=== PATIENT | female | born 1945 | race Caucasian/White ===

== ENCOUNTER 2020-03-04 09:23 | Outpatient (CLI) | payer MEDICARE, SELFPAY ==
--- NOTE | ~2020-03-04 | MM_ITS ---
EXAMINATION: MM screening [facility] BI w susana HISTORY: Screening mammogram TECHNIQUE: Craniocaudal and mediolateral oblique 3-D tomosynthesis images were obtained and synthetic 2-D images were generated. CAD analysis was submitted and interpreted. COMPARISON: 08/27/2018, 06/26/2017, 04/22/2016 bilateral digital screening mammogram examinations BREAST PARENCHYMAL COMPOSITION: There are scattered areas of fibroglandular density. FINDINGS: Scattered bilateral benign calcifications. Stable bilateral small circumscribed opacities s sirena 04/22/2016. There is no evidence of suspicious mass, calcification, or architectural distortion to suggest malignancy in either breast. There has been no suspicious interval change. IMPRESSION: 1. No mammographic evidence of malignancy. 2. Recommend routine screening mammography in one year. BI-RADS Category 2: Benign finding(s). Reviewed, dictated and finalized at location A.
== END 2020-03-04 09:24 | disposition home or self-care (01) ==
LOC: ANHIMG 09:27
PROVIDERS: PCP Family Medicine; Visit Provider Family Medicine
DX: Z12.31 Encounter for screening mammogram for malignant neoplasm of breast (principal)
CPT/HCPCS: 77063; 77067

== ENCOUNTER → 2020-09-28 08:54 | Outpatient (CLI) | payer MEDICARE, SELFPAY ==
--- NOTE | ~2020-09-28 | XR_ITS ---
XR chest 2V DATE: 09/28/2020 09:08 INDICATION: Cough TECHNIQUE: 2 views COMPARISON: None FINDINGS: Mild cardiomegaly. Mild aortic unfolding. No hilar or mediastinal enlargement. No pulmonary infiltrate or consolidation, pleural effusion or pulmonary vascular congestion or pneumothorax. Diffuse osteopenia. There is degenerative spurring of the thoracic spine. IMPRESSION: Mild cardiomegaly No active pulmonary disease Reviewed, dictated and finalized at location A.
== END ==
PROVIDERS: PCP Family Medicine; Visit Provider Family Medicine
DX: R05 Cough (principal); I51.7 Cardiomegaly; M85.88 Other specified disorders of bone density and structure, other site
CPT/HCPCS: 71046

== ENCOUNTER 2021-09-09 08:56 | Outpatient (CLI) | payer MEDICARE, SELFPAY ==
--- NOTE | ~2021-09-09 | MM_ITS ---
EXAMINATION: MM screening [facility] BI w susana HISTORY: Screening mammogram TECHNIQUE: Craniocaudal and mediolateral oblique 3-D tomosynthesis images were obtained and synthetic 2-D images were generated. CAD analysis was submitted and interpreted. COMPARISON: 03/04/2020, 08/27/2018, 06/26/2017 BREAST PARENCHYMAL COMPOSITION: There are scattered areas of fibroglandular density. FINDINGS: Stable bilateral breast masses are consistent with benign findings. There is no suspicious mass, calcification, or architectural distortion to suggest malignancy in either breast. There has be en no suspicious interval change. IMPRESSION: 1. No mammographic evidence of malignancy. 2. Recommend routine screening mammography in one year. BI-RADS Category 2: Benign finding(s). Reviewed, dictated and finalized at location A.
--- NOTE | ~2021-09-09 | DEXA_ITS ---
Bone Density Report Name: SHERLY AGARWAL Age: 76 Sex: Female Ethnicity: White Date of : 1945 Indication: osteopenia; monitoring treatment; height loss; postmenopausal Referring Provider: Lucero Frederick Study: Bone densitometry was performed. Exam Date: September 09, 2021 Accession number: [id number] Bone Density: Region BMD T-score Z-score Classification AP Spine (L1, L2, L3) 1.122 0.9 3.3 Normal Femoral Neck (Left) 0.619 -2.1 0.0 Osteopenia Total Hip (Left) 0.894 -0.4 1.3 Normal Total Hip Bilateral Avg 0.852 -0.8 1.0 Normal Femoral Neck (Right) 0.599 -2.2 -0.2 Osteopenia Total Hip (Right) 0.809 -1.1 0.7 Osteopenia World Health Organization criteria for BMD impression classify patients as: Normal (T-score at or above -1.0), Osteopenia (T-score between -1.0 and -2.5), or Osteoporosis (T-score at or below -2.5). 10-year Fracture Risk: FRAX not reported because: Treated for osteoporosis Previous Exams: Region Exam Age BMD T-score BMD Change BMD Change Date g/cm2 vs Baseline vs Previous AP Spine(L1, L2, L3) 09/09/2021 76 1.122 0.9 0.033(3.1%)# 0.028(2.6%)# 06/26/2017 72 1.093 0.7 0.005(0.4%)# 0.005(0.4%)# 06/26/2012 67 1.088 0.6 Total Hip(Left) 09/09/2021 76 0.894 -0.4 -0.079(-8.1%)# -0.023(-2.5%)# 06/26/2017 72 0.917 -0.2 -0.056(-5.7%)# -0.056(-5.7%)# 06/26/2012 67 0.972 0.2 Total Hip(Right) 09/09/2021 76 0.809 -1.1 -0.157(-16.2%) -0.002(-0.2%)# 06/26/2017 72 0.811 -1.1 -0.155(-16.0%) -0.155(-16.0%) 06/26/2012 67 0.966 0.2 *Denotes significance at 95% confidence level, LSC for AP Spine = 0.022 g/cm2, LSC for Total Hip = 0.027 g/cm2 Clinical Information Provided by Patient: Is being treated for osteoporosis Has used the following medications: Vitamin D, Calcium Patient maximum height was 62 Menopause Age: 56 No regular weight bearing exercise Does not regularly consume dairy products Drinks caffeinated beverages Onset of menses at age 15 Number of children 6 Impression: The patient has low bone mass, based on the Right Femoral Neck T-score. No significant bone loss was observed. Discussion: PATIENT UNDER TREATMENT WITH NO SIGNIFICANT BMD LOSS SINCE LAST EXAM. In an untreated patient, BMD typically declines with age. A lack of decline or gain is usually a sign that treatment is efficacious and fracture risk is reduced. It is important to ask patients whether they are taking their medicatio
== END 2021-09-09 08:57 | disposition home or self-care (01) ==
PROVIDERS: PCP Family Medicine; Visit Provider Family Medicine
DX: Z12.31 Encounter for screening mammogram for malignant neoplasm of breast (principal); Z78.0 Asymptomatic menopausal state
CPT/HCPCS: 77063; 77067; 77080

== ENCOUNTER 2023-01-16 07:23 | Outpatient (CLI) | payer MEDICARE, SELFPAY ==
--- NOTE | ~2023-01-16 | MM_ITS ---
EXAMINATION: MM screening [facility] BI w susana HISTORY: Screening mammogram TECHNIQUE: Craniocaudal and mediolateral oblique 3-D tomosynthesis images were obtained and synthetic 2-D images were generated. CAD analysis was submitted and interpreted. COMPARISON: 09/09/2021, 03/04/2020, 08/27/2018 BREAST PARENCHYMAL COMPOSITION: There are scattered areas of fibroglandular density. FINDINGS: Again noted are stable bilateral breast masses, consistent with benign findings. No suspici ous mass, calcification, or architectural distortion are identified in either breast to suggest malig ana. There has been no suspicious interval change. IMPRESSION: 1. No mammographic evidence of malignancy. 2. Recommend routine screening mammography in one year. BI-RADS Category 2: Benign finding(s). Reviewed, dictated and finalized at location A.
== END 2023-01-16 07:24 | disposition home or self-care (01) ==
LOC: ANHIMG 07:25
PROVIDERS: PCP Family Medicine; Visit Provider Family Medicine
DX: Z12.31 Encounter for screening mammogram for malignant neoplasm of breast (principal)
CPT/HCPCS: 77063; 77067

== ENCOUNTER 2023-02-07 19:43 | Emergency (ER) | payer MEDICARE, SELFPAY ==
[2023-02-07 19:56] VITALS: BP 158/108; PULSE 113; RESP 19; TEMP 36.4; O2SAT 99
--- NOTE | 2023-02-07 20:01 | ECG_ITS ---
Measurements Intervals [place] Rate: 57 P: 35 [place]: 175 QRS: -1 QRSD: 113 T: 11 QT: 427 QTc: 416 Interpretive Statements SINUS BRADYCARDIA POSSIBLE ANTERIOR MYOCARDIAL INFARCTION , PROBABLY OLD [30 ms Q WAVE IN V3/V4, OR R < 0.2 mV IN V4] ABNORMAL ECG NO PREVIOUS ECG AVAILABLE FOR COMPARISON Electronically Signed On 02-08-2023 9:16:36 CDT by Denilson Adames M.D.
[2023-02-07 20:14] LABS: Basophils Percent Auto 0.4 % (0.2-1.2); Eosinophils Absolute Auto 0.1 K/mm3 (0-0.3); Eosinophils Percent Auto 1.2 % (0-4.4); Hematocrit 39.3 % (37.0-47.0); Hemoglobin 12.7 g/dL (12.0-15.0); Immature Granulocyte Absolute 0.03 K/mm3 (0.00-0.031); Immature Granulocyte Percent A 0.3 % (0-0.5); Lymphocytes Absolute Auto 1.54 K/mm3 (0.9-3.2); Lymphocytes Percent Auto 13.9 % (18.3-44.2); Mean Corpuscular HGB Conc 32.3 g/dl (32-36); Mean Corpuscular Hemoglobin 30.3 pg (26-34); Mean Corpuscular Volume 93.8 fl (80-100); Mean Platelet Volume 9.5 fl (7.4-10.4); Monocytes Absolute Auto 0.6 K/mm3 (0.1-0.6); Monocytes Percent Auto 5.5 % (2.6-8.5); Neutrophils Absolute Auto 8.8 K/mm3 (1.3-6.7); Neutrophils Percent Auto 78.7 % (45.5-73.1); Platelet Count Result 235 k/mm3 (150-375); Red Blood Count 4.19 M/mm3 (4.2-5.4); Red Cell Distribution Width 13.2 % (11.5-14.5); White Blood Count 11.1 K/mm3 (4.5-10.0)
[2023-02-07 20:36] LABS: Alanine Aminotransferase 16 U/L (6-35); Albumin Level 4.3 g/dL (3.5-5.1); Alkaline Phosphatase 83 U/L (38-126); Anion Gap 12 mmol/L (8-16); Aspartate Amino Transferase 18 U/L (14-36); Bilirubin,Total 0.6 mg/dL (0.2-1.3); Blood Urea Nitrogen 23 mg/dL (7-17); Carbon Dioxide 23 mmol/L (22-30); Chloride 102 mmol/L (98-107); Estimated CRCL calculation 41 ml/min; Estimated Glomerular Filt Rate 44; Glucose 129 mg/dL (65-110); Potassium 4.1 mmol/L (3.4-5.0); Sodium 137 mmol/L (137-145)
[2023-02-07 22:05] VITALS: BP 189/77; PULSE 55; RESP 19; TEMP 36.7; O2SAT 99
[2023-02-08 01:10] VITALS: BP 189/76; PULSE 61; RESP 15; O2SAT 100
[2023-02-08 01:11] VITALS: O2SAT 100
[2023-02-08 01:12] VITALS: PULSE 60
[2023-02-08 02:26] LABS: Magnesium 2.2 mg/dL (1.6-2.3)
[2023-02-08 02:39] LABS: Troponin I < 0.012 ng/mL (0.000-0.034)
--- NOTE | 2023-02-08 03:03 | ED.GENADULT ---
HPI - General Adult General Chief complaint: Syncope Stated complaint: syncope Time Seen by Provider: 02/08/23 02:00 History of Present Illness HPI narrative: Patient 77-year-old female who presents the emergency department with chief complaint of syncope. Patient reports she was outside at a soccer game and started to have some discomfort on the right flank area the patient reports that she felt lightheaded felt as though she was going to pass out the patient then briefly started to pass out. Patient denies chest pain patient reports that she became diaphoretic very lightheaded and the symptoms lasted for a very short period of time. Patient states currently she feels much better and would like to go home Related Data Home Medications Medication Instructions Recorded Confirmed calcium carbonate 500 mg calcium 500 mg PO DAILY 05/06/19 12/19/22 (1,250 mg) tablet (Calcium 500) glucosamine 500 mg-chondroit 400 cap PO 05/06/19 12/19/22 mg-vit C 2 mg-kateryna 0.33 mg capsule magnesium 250 mg tablet 250 mg PO DAILY 05/06/19 12/19/22 methylcellulose (laxative) 500 mg 500 mg PO DAILY 05/06/19 12/19/22 tablet (Fiber Laxative (methylcellulose)) ascorbic acid (vitamin C) 1,000 mg 1 g PO DAILY 09/02/20 12/19/22 tablet cholecalciferol (vitamin D3) 125 125 mcg PO DAILY 09/02/20 12/19/22 mcg (5,000 unit) tablet mecobalamin (vitamin B12) 5,000 mcg PO 09/02/20 12/19/22 mcg disintegrating tablet omega 8-kfw-wfp-fish oil 1,200 mg 1 cap PO DAILY 09/02/20 12/19/22 (144 mg-216 mg) capsule (Fish Oil) aspirin 81 mg tablet,delayed 81 mg PO DAILY 02/04/22 12/19/22 release (Adult Aspirin Regimen) Allergies Allergy/AdvReac Type Severity Reaction Status Date / Time ibuprofen Allergy Unknown Skin Verified 12/19/22 09:48 Reaction lisinopril Allergy Unknown cough Verified 12/19/22 09:48 Review of Systems Review of Systems: A 10 system review of systems was completed on the patient and is negative except for what is stated in the HPI. Nursing and ancillary documentation was reviewed. [facility] Past Medical History Medical History Encounter for dual-energy x-ray absoptiometry review Hepatitis C antibody test negative (04/30/17) Family History Family History Mother Diabetes mellitus Family history of cardiovascular disease Family history of genetic disorder Family history of coronary artery disease Father Hypertension Social History Social History Smoking status: Never smoker Alcohol intake: never Lack of Transportation: No Lack of Food: Never True Current Housing: I Have Housing Concerned About Future Housing: No Difficulty Paying Gas/Electric Bills: No Difficulty Paying for Meds: No Currently Unemployed: No Education: High School Diploma/GED Difficulty w/ Childcare or Family Care: No Exam Narrative: GENERAL: Well-appearing, well-nourished, and in no acute distress. HEAD: Normocephalic, atraumatic. EYES: PERRLA and EOMI. ENT: Nares clear, no rhinorrhea or epistaxis. Mucous membranes moist. NECK: Supple. CHEST: Clear to auscultation. No respiratory distress. HEART: Regular rate and rhythm. No murmur heard. Normal peripheral pulses. ABDOMEN: Soft, nontender, nondistended, normal active bowel sounds. EXTREMITIES: Normal range of motion. No edema. SKIN: Warm, dry, no rash. NEURO: No focal deficits. Alert and oriented x3. PSYCH: Normal mood and affect. Course Vital Signs Vital signs: Vital Signs Temperature 36.4 C L 02/07/23 19:56 Pulse Rate 113 H 02/07/23 19:56 Respiratory Rate 19 02/07/23 19:56 Blood Pressure 158/108 H 02/07/23 19:56 Pulse Oximetry 99 02/07/23 19:56 Oxygen Delivery Room Air 02/07/23 19:56 Temperature 36.7 C 02/07/23 22:05 Pulse Ra
[2023-02-08 03:06] VITALS: BP 181/73; BP 197/86; PULSE 56; PULSE 62
[2023-02-08 03:09] VITALS: BP 209/102; PULSE 63
== END 2023-02-08 03:50 | disposition home or self-care (01) ==
LOC: ANHED 02-08 03:10
PROVIDERS: Emergency Provider Emergency Medicine; PCP Family Medicine
DX: R55 Syncope and collapse (principal); Z79.82 Long term (current) use of aspirin; R00.1 Bradycardia, unspecified; R94.31 Abnormal electrocardiogram [ECG] [EKG]
CPT/HCPCS: 36415; 80053; 83735; 84484; 85025; 93005; 99284

== ENCOUNTER 2023-03-05 10:39 | Emergency (ER) | payer MEDICARE, SELFPAY ==
--- NOTE | 2023-03-05 11:10 | ED.GENADULT ---
HPI - General Adult General Chief complaint: Back Pain/Injury Stated complaint: Shortness of Breath,Upper Back Pain Time Seen by Provider: 03/05/23 11:10 Source: patient Mode of arrival: ambulatory Limitations: no limitations History of Present Illness HPI narrative: Say 7-year-old female patient presents to the [facility] with complaints of shortness of breath that has been going on for the past 2-3 days. Patient states she has also been having some left upper back pain. Denies chest pain at this time. Patient states she has been having more difficulty walking around recently as well. Patient states she had a syncopal episode about 2 weeks ago was seen in the ER was told she was dehydrated and released that day. Patient does have a history of high blood pressure and is on medication but is not stable with her blood pressure. Patient states she has been feeling more weak than normal denies numbness or tingling on 1 side of the body or the other. Patient does have a family history of heart disease but she herself has never had a heart attack or stroke. Patient states she has not been running any fevers but feels very hot diaphoretic. Related Data Home Medications Medication Instructions Recorded Confirmed calcium carbonate 500 mg calcium 500 mg PO DAILY 05/06/19 02/20/23 (1,250 mg) tablet (Calcium 500) glucosamine 500 mg-chondroit 400 cap PO 05/06/19 02/20/23 mg-vit C 2 mg-kateryna 0.33 mg capsule ascorbic acid (vitamin C) 1,000 mg 1 g PO DAILY 09/02/20 02/20/23 tablet mecobalamin (vitamin B12) 5,000 mcg PO 09/02/20 02/20/23 mcg disintegrating tablet omega 8-cwa-mtu-fish oil 1,200 mg 1 cap PO DAILY 09/02/20 02/20/23 (144 mg-216 mg) capsule (Fish Oil) aspirin 81 mg tablet,delayed 81 mg PO DAILY 02/04/22 02/20/23 release (Adult Aspirin Regimen) biotin 10,000 mcg capsule mcg PO 02/20/23 02/20/23 calcium polycarbophil 625 mg tablet 1,250 mg PO DAILY 02/20/23 02/20/23 cholecalciferol (vitamin D3) 50 50 mcg PO DAILY 02/20/23 02/20/23 mcg (2,000 unit) capsule losartan 50 mg tablet 75 mg PO DAILY 02/20/23 02/20/23 magnesium citrate 100 mg capsule 100 mg PO DAILY 02/20/23 02/20/23 Allergies Allergy/AdvReac Type Severity Reaction Status Date / Time ibuprofen AdvReac Mild Skin Verified 03/05/23 11:15 Reaction lisinopril AdvReac Mild cough Verified 03/05/23 11:15 Review of Systems Review of Systems: CONSTITUTIONAL: Denies fever, chills, Positive sweats. EYES: Denies visual changes, redness, or discharge. ENT: Denies rhinorrhea, congestion, sore throat, or otalgia. CARDIOVASCULAR: Denies chest pain, palpitations, or edema. RESPIRATORY: Denies cough , positive dyspnea. GASTROINTESTINAL: Denies abdominal pain, nausea, vomiting, or diarrhea. GENITOURINARY: Denies dysuria or hematuria. SKIN: Denies rash or itching. MUSCULOSKELETAL: Denies back pain, joint pain, or myalgia. positive left upper back pain NEUROLOGIC: Denies headache, numbness, or weakness. PSYCHIATRIC: Denies anxiety or depression. FORMERLY [facility], 1928–1983 Past Medical History Medical History (Updated 03/05/23 @ 11:56 by SIDNEY Carmona) Cardiomegaly Encounter for dual-energy x-ray absoptiometry review Hepatitis C antibody test negative (04/30/17) Family History Family History Mother Diabetes mellitus Family history of cardiovascular disease Family history of genetic disorder Family history of coronary artery disease Father Hypertension Social History Social History Smoking status: Never smoker Alcohol intake: never Lack of Transportation: No Lack of Food: Never True Current Housing: I Have Housing Concerned About Future Housing: No Difficulty Paying Gas/Electric Bills: No Difficulty Paying for Meds: No Currently Unemployed: No Education: High School Diploma/GED Difficulty w/ Childcare or Family Care: No
[2023-03-05 11:23] VITALS: BP 153/99; PULSE 133; RESP 20; TEMP 36.9; O2SAT 97
[2023-03-05 11:23] LABS: Glucose Point of Care 165 mg/dl (65-105)
--- NOTE | 2023-03-05 11:28 | ECG_ITS ---
Measurements Intervals [place] Rate: 102 P: 70 VT: 169 QRS: -28 QRSD: 101 T: 1 QT: 346 QTc: 451 Interpretive Statements SINUS TACHYCARDIA BORDERLINE R WAVE PROGRESSION, ANTERIOR LEADS BORDERLINE T WAVE ABNORMALITY- INFERIOR LEADS BASELINE ARTIFACT- I, III, AVR, AVL BORDERLINE ECG COMPARED TO ECG 03/05/2023 11:22:15 NO SIGNIFICANT CHANGES Electronically Signed On 03-05-2023 20:34:22 CDT by Dalton Leavitt D.O.
== END 2023-03-05 11:50 | disposition short-term general hospital (02) ==
PROVIDERS: Emergency Provider Nurse Practitioner Family; PCP Family Medicine
DX: R06.02 Shortness of breath (principal); Z20.822 Contact with and (suspected) exposure to COVID-19; R55 Syncope and collapse; I51.7 Cardiomegaly; Z79.82 Long term (current) use of aspirin; I10 Essential (primary) hypertension
CPT/HCPCS: 82948; 87426; 93005; 99215; C9803; G0463

== ENCOUNTER 2023-03-05 12:06 | Inpatient (IN) | payer MEDICARE, MEDICAID, SELFPAY ==
[2023-03-05] VITALS (44 sets, daily range): BP systolic 94–166; BP diastolic 55–97; PULSE 97–122; RESP 12–30; TEMP 36.7–37.3; O2SAT 91–100; BMI 40.6
--- NOTE | ~2023-03-05 | XR_ITS ---
EXAMINATION: XR chest 2V Exam Date/Time: 03/05/2023 14:08 CDT HISTORY: sob with exertion and left upper back pain Comparison: 09/28/2020. RESULT: Lines, tubes, and devices: None. Lungs and pleura: Senescent changes otherwise clear. Cardiomediastinal silhouette: Stable. Other: No acute osseous or upper abdominal finding. IMPRESSION: No acute cardiopulmonary process. Reviewed, dictated and finalized at location K.
--- NOTE | ~2023-03-05 | CT_ITS ---
EXAMINATION: CT abdomen pelvis wo con DATE: 03/06/2023 06:45 INDICATION: Flank pain. Urinary tract infection. TECHNIQUE: Computed tomography (CT) of the abdomen and pelvis was performed without intravenous contr ast. Automated exposure control and iterative reconstruction technique were employed. The dose-length product was 1136.34 mGy-cm. COMPARISON: Chest CT 03/05/2023 FINDINGS: The visualized portions of the lung bases demonstrate mild atelectasis. A calcified right l pablo nodule is consistent with old granulomatous disease. No pleural effusion. The heart size is quinn l. No pericardial effusion. Calcifications in the liver and spleen are consistent with old granulomat ous disease. The gallbladder is distended and contains gallstones. The pancreas and adrenal glands ar e normal. There are persistent contrast nephrograms, consistent with decreased renal function. There is contrast in the ureters. Stool distends the rectum. There is diverticulosis of the colon without e vidence of diverticulitis. The appendix is normal. Aortic atherosclerosis is noted. There are no path ologically enlarged lymph nodes. There is no free intraperitoneal fluid. There is a left inguinal her jose containing fat. There is severe thoracic and lumbar spondylosis. IMPRESSION: 1. No hydronephrosis. Contrast in the renal collecting system decreases sensitivity for urolithiasis. 2. Cholelithiasis. Gallbladder distention may be secondary to fasting or acute cholecystitis. Correla te with physical exam. 3. Stool distends the rectum. 4. Left inguinal hernia containing fat. Reviewed, dictated and finalized at location A. IMPRESSION: 1. No hydronephrosis. Contrast in the renal collecting system decreases sensiti vity for urolithiasis. 2. Cholelithiasis. Gallbladder distention may be secondary to fasting or acute cholecystitis. Correlate with physical exam. 3. Stool distends the rectum. 4. Left inguinal hernia containing fat.
--- NOTE | ~2023-03-05 | US_ITS ---
US abdomen limited INDICATION: Gallstones. Suspected cholecystitis. PROCEDURE: Realtime right upper abdominal ultrasound. COMPARISON: No prior studies for comparison. FINDINGS: The pancreas is normal without focal mass or pancreatic ductal dilation. Liver echotexture is increased, consistent with fatty infiltration. There is normal directional flow in the portal ve in. There are gallstones. There is mild gallbladder wall thickening with possible small volume of pericho lecystic fluid. Common bile duct measures 4 mm. IMPRESSION: 1: Cholelithiasis with mild gallbladder wall thickening and possible pericholecystic fluid. Findings suspicious for cholecystitis. 2: Hepatic steatosis. Reviewed, dictated and finalized at location L. IMPRESSION: 1: Cholelithiasis with mild gallbladder wall thickening and possible pericholec ystic fluid. Findings suspicious for cholecystitis. 2: Hepatic steatosis.
--- NOTE | ~2023-03-05 | CT_ITS ---
EXAMINATION: CTA chest PE protocol DATE: 03/05/2023 15:21 INDICATION: Elevated D-dimer TECHNIQUE: Computed tomography angiography (CTA) of the chest was performed with 100 mL Omnipaque-350 intravenous contrast timed to evaluate the pulmonary arteries. Coronal maximum intensity projection 3D-reconstructions were created by the technologist. The dose-length product (DLP) was 732.60 mGy-cm. Automated exposure control and iterative reconstruction technique were employed. COMPARISON: Ultrasound thyroid 08/12/2013; ultrasound-guided FNA 08/29/2013. FINDINGS: Lung parenchyma and airways: Left anterior upper lobe scar. Minimal bibasilar scar/atelectasis. Granu lomatous calcification. Pleura: Unremarkable. Thoracic inlet, axillae and chest wall: 2.4 cm left thyroid nodule with coarse calcification. Thoracic aorta: Mild arch calcification. Mediastinum: Dilated central pulmonary arteries as can be seen with pulmonary arterial hypertension. Heart and pericardium: Normal. Coronary artery calcifications: Absent. Upper abdomen: No significant finding. Bones: No acute osseous finding. Pulmonary arteries: Study quality: Adequate. No pulmonary emboli detected. IMPRESSION: No CT evidence of acute pulmonary embolus. No acute thoracic process detected. 2.4 cm left thyroid nodule, previously biopsied. Reviewed, dictated and finalized at location K.
--- NOTE | 2023-03-05 13:58 | ECG_ITS ---
Measurements Intervals [place] Rate: 127 P: 41 MD: 160 QRS: -29 QRSD: 102 T: 20 QT: 304 QTc: 442 Interpretive Statements SINUS TACHYCARDIA POOR R WAVE PROGRESSION, ANTERIOR LEADS BASELINE WANDER- AVF ABNORMAL ECG COMPARED TO ECG 02/07/2023 22:00:55 SINUS TACHYCARDIA NOW PRESENT Electronically Signed On 03-05-2023 20:31:08 CDT by Dalton Leavitt D.O.
--- NOTE | 2023-03-05 14:45 | ED.FEVER ---
HPI - Fever General Chief Complaint: Fever Stated Complaint: chills/fever/back pain Time Seen by Provider: 03/05/23 13:11 History of Present Illness HPI Narrative: 77-year-old female presented to ED for evaluation of 3 days of cough congestion generalized fatigue low-grade fever hypertension and rapid heart rate. Patient reports he did have an episode approximately 3 weeks ago where she had a syncopal episode at a sporting event. Patient was sitting on the sun I do suspect it may have been heat related. Patient did present to the ED for evaluation and was cleared at that time. Patient states over the course of the last 2 weeks she has felt fine but then began having worsening shortness of breath on Monday. Related Data Home Medications Medication Instructions Recorded Confirmed calcium carbonate 500 mg calcium 500 mg PO DAILY 05/06/19 03/05/23 (1,250 mg) tablet (Calcium 500) glucosamine 500 mg-chondroit 400 1 cap PO DAILY 05/06/19 03/05/23 mg-vit C 2 mg-kateryna 0.33 mg capsule ascorbic acid (vitamin C) 1,000 mg 1 g PO DAILY 09/02/20 03/05/23 tablet mecobalamin (vitamin B12) 5,000 5,000 mcg PO WEEKLY 09/02/20 03/05/23 mcg disintegrating tablet omega 4-oyp-fix-fish oil 1,200 mg 1 cap PO DAILY 09/02/20 03/05/23 (144 mg-216 mg) capsule (Fish Oil) aspirin 81 mg tablet,delayed 81 mg PO DAILY 02/04/22 03/05/23 release (Adult Aspirin Regimen) biotin 10,000 mcg capsule 10,000 mcg PO DAILY 02/20/23 03/05/23 calcium polycarbophil 625 mg tablet 1,250 mg PO DAILY 02/20/23 03/05/23 cholecalciferol (vitamin D3) 50 50 mcg PO DAILY 02/20/23 03/05/23 mcg (2,000 unit) capsule losartan 50 mg tablet 75 mg PO DAILY 02/20/23 03/05/23 Allergies Allergy/AdvReac Type Severity Reaction Status Date / Time ibuprofen AdvReac Mild Skin Verified 03/05/23 11:15 Reaction lisinopril AdvReac Mild cough Verified 03/05/23 11:15 Review of Systems Review of Systems: All systems reviewed & are unremarkable except as noted in HPI and below PMFSH Past Medical History Medical History (Updated 03/05/23 @ 17:27 by Mike House MD) Cardiomegaly Encounter for dual-energy x-ray absoptiometry review Hepatitis C antibody test negative (04/30/17) Family History Family History Mother Diabetes mellitus Family history of cardiovascular disease Family history of genetic disorder Family history of coronary artery disease Father Hypertension Social History Social History Smoking status: Never smoker Alcohol intake: never Lack of Transportation: No Lack of Food: Never True Current Housing: I Have Housing Concerned About Future Housing: No Difficulty Paying Gas/Electric Bills: No Difficulty Paying for Meds: No Currently Unemployed: No Education: High School Diploma/GED Difficulty w/ Childcare or Family Care: No Exam Narrative: APPEARANCE: Well appearing, no pain, no distress, well-nourished. HEAD: normocephalic, atraumatic. EYES: PERRLA/EOMI, conjunctivae clear. NOSE: Normal no drainage EARS:TMS clear with good light reflex. THROAT: Pharynx clear, no exudate. NECK: Supple. No adenopathy, no masses. RESPIRATORY: Airway patent, respirations nonlabored. Clear to auscultation bilaterally, no rales, rhonchi, wheezing. CARDIOVASCULAR: Regular rate and rhythm without murmurs rubs or gallops. ABDOMINAL: Soft, nontender, nondistended, normal bowel sounds MUSCULOSKELETAL: Moves all extremities. Strength/ROM intact, No edema, No calf tenderness. NEURO: Alert. Cranial nerves II through XII intact. Good gait. Good coordination SKIN: Warm, dry. Normal Color Course Vital Signs Vital signs: Vital Signs Temperature 98.1 F 03/05/23 12:25 Pulse Rate 115 H 03/05/23 12:25 Respiratory Rate 16 03/05/23 12:25 Blood Pressure 139/74 03/05/23 12:25 Pulse Oximetry 96 03/05/23 12:25 Oxygen
[2023-03-05 14:49] LABS: Basophils Absolute Auto 0.1 K/mm3 (0.0-0.1); Basophils Percent Auto 0.3 % (0.2-1.2); Hematocrit 36.6 % (37.0-47.0); Immature Granulocyte Absolute 0.07 K/mm3 (0.00-0.031); Immature Granulocyte Percent A 0.4 % (0-0.5); Lymphocytes Absolute Auto 0.91 K/mm3 (0.9-3.2); Lymphocytes Percent Auto 5.4 % (18.3-44.2); Mean Corpuscular HGB Conc 32.8 g/dl (32-36); Mean Corpuscular Hemoglobin 30.4 pg (26-34); Mean Corpuscular Volume 92.7 fl (80-100); Mean Platelet Volume 9.6 fl (7.4-10.4); Monocytes Absolute Auto 1.1 K/mm3 (0.1-0.6); Monocytes Percent Auto 6.4 % (2.6-8.5); Neutrophils Absolute Auto 14.8 K/mm3 (1.3-6.7); Neutrophils Percent Auto 87.5 % (45.5-73.1); Platelet Count Result 219 k/mm3 (150-375); Red Blood Count 3.95 M/mm3 (4.2-5.4); Red Cell Distribution Width 13.3 % (11.5-14.5); White Blood Count 16.9 K/mm3 (4.5-10.0)
[2023-03-05 14:58] LABS: Alanine Aminotransferase 22 U/L (6-35); Albumin Level 4.1 g/dL (3.5-5.1); Alkaline Phosphatase 86 U/L (38-126); Anion Gap 10 mmol/L (8-16); Aspartate Amino Transferase 22 U/L (14-36); Bilirubin,Total 0.9 mg/dL (0.2-1.3); Blood Urea Nitrogen 22 mg/dL (7-17); Calcium 9.9 mg/dL (8.4-10.2); Carbon Dioxide 23 mmol/L (22-30); Chloride 102 mmol/L (98-107); Estimated CRCL calculation 40 ml/min; Estimated Glomerular Filt Rate 44; Glucose 149 mg/dL (65-110); Potassium 3.9 mmol/L (3.4-5.0); Sodium 135 mmol/L (137-145)
[2023-03-05 15:02] LABS: D Dimer 1.46 ug/mL (<0.48)
[2023-03-05 15:08] LABS: NT Pro B Type Natriuretic Pept 733 pg/mL (19.9-100)
[2023-03-05 15:23] LABS: Influenza A QL RT-PCR Negative (Negative); Influenza B QL RT-PCR Negative (Negative); RSV RNA, RT-PCR Negative (Negative); SARS-CoV-2 RNA PCR Negative (Negative)
--- NOTE | 2023-03-05 18:11 | PM.IMHP ---
H&P: HPI History of Present Illness Date/Time: 03/05/23 18:00 Chief Complaint: Fever and shortness of breath. Narrative: This is a very pleasant 77-year-old female with hypertension, hyperlipidemia, prediabetes, and chronic kidney disease who presented to the emergency department for evaluation of fever and shortness of breath. The patient provides the following history. She has not been feeling well for several days with generalized malaise, muscle aches, fever, nausea, poor appetite, and shaking chills. She has a dry, nonproductive cough though that is not necessarily unusual for her. She has mild shortness of breath with exertion. Additionally she reports an aching discomfort in the left scapular region which just started today. She has been taking Tylenol at home for her fever however it only lasts about 4 to 6 hours before the fever returns. She denies headache, neck ache, sore throat, chest and pleuritic pain, vomiting, diarrhea, rash, joint swelling, he wounds, bites, and dysuria. Of note she was seen in the emergency department 3 weeks ago for a syncopal episode while at an outdoor sporting event. Per patient report everything checked out and she was discharged home with presumed syncope due to the heat. Prior to that syncopal episode however she reports having right-sided flank pain though that has not recurred. She was afebrile on arrival to the emergency department with stable blood pressures. Labs were significant for WBC count of 16.9, BUN 22, creatinine 1.20, glucose 149, D-dimer 1.46, proBNP 733. She was negative for influenza, RSV, and COVID. Chest x-ray showed no acute cardiopulmonary disease. Chest CTA showed no evidence of acute pulmonary embolism. She is being admitted in this setting for close monitoring and further evaluation. Review of Systems Review of Systems: Twelve systems were reviewed and are negative except for as per HPI. [facility] Past Medical History Medical History (Updated 03/05/23 @ 22:29 by Gala Harris PA-C) Arthritis Chronic kidney disease, stage 3 Gastroesophageal reflux disease Hyperlipidemia Hypertension Prediabetes Surgical History Surgical History (Updated 03/05/23 @ 22:26 by Gala Harris PA-C) History of section Family History Family History Mother Diabetes mellitus Family history of cardiovascular disease Family history of genetic disorder Family history of coronary artery disease Father Hypertension Social History Social History (Updated 03/05/23 @ 22:26 by Gala Harris PA-C) Social History: Surrogate medical decision maker: Lucero Maldonado, daughter. Code status: Full code. Smoking status: Never smoker Second hand tobacco smoke exposure: No Alcohol intake: never Substance use: never Lack of Transportation: No Lack of Food: Never True Current Housing: I Have Housing Concerned About Future Housing: No Difficulty Paying Gas/Electric Bills: No Difficulty Paying for Meds: No Currently Unemployed: No Education: High School Diploma/GED Difficulty w/ Childcare or Family Care: No Spiritual care concerns: No Meds Home Medications and Allergies Home Medications Medication Instructions Recorded Confirmed Type calcium carbonate 500 mg calcium 500 mg PO DAILY 05/06/19 03/05/23 History (1,250 mg) tablet (Calcium 500) glucosamine 500 mg-chondroit 400 1 cap PO DAILY 05/06/19 03/05/23 History mg-vit C 2 mg-kateryna 0.33 mg capsule ascorbic acid (vitamin C) 1,000 mg 1 g PO DAILY 09/02/20 03/05/23 History tablet omega 5-bxu-upx-fish oil 1,200 mg 1 cap PO BID 09/02/20 03/05/23 History (144 mg-216 mg) capsule (Fish Oil) aspirin 81 mg tablet,delayed 81 mg PO DAILY 02/04/22 03/05/23 History release (Adult Aspirin Regimen) biotin 10,000 mcg capsule 10,000 mcg PO DAILY 02/20/23 03/05/23 History calcium polycarbophil 625 mg tablet 1,250 mg PO DAILY
[2023-03-05 19:11] LABS: Appearance Urine Clear (Clear); Bacteria Urine 4+ /hpf; Bilirubin Urine Negative (Negative); Color Urine Yellow (Yellow); Glucose Urine UA Negative (Negative); Ketones Urine Trace mg/dL (Negative); Leukocyte Esterase Ur Negative LEU/UL (Negative); Nitrate Urine Positive (Negative); Protein Urine Negative (Negative); Squamous Epithelial Cell Urine Occasional /hpf (Few); Urobilinogen Urine 0.2 mg/dL (<2.0); WBC Urine 0-5 /hpf
[2023-03-05 19:22] LABS: Add Urine Microscopic? YES; Specific Grav Ur 1.059 (1.001-1.035)
[2023-03-05 19:23] LABS: Hemoglobin A1C 5.8 % (<5.7)
[2023-03-05] MEDS: ACETAMINOPHEN 325 MG TABLET 650 MG PO (19:41)
[2023-03-05 19:54] LABS: CRP 14.6 mg/dL (<1.0)
[2023-03-05 21:06] LABS: Lactic Acid Reflex 1.8 mmol/L (0.7-2.0)
[2023-03-05 21:24] LABS: Procalcitonin 0.9 ng/mL
[2023-03-05 21:38] LABS: Thyroid Stimulating Hormone Reflex < 0.015 uIU/mL (0.465-4.68)
[2023-03-05] MEDS: SODIUM CHLORIDE 0.9% IV 1,000 ML 100 ML IV CONT (22:58)
[2023-03-06] VITALS (11 sets, daily range): BP systolic 119–145; BP diastolic 54–67; PULSE 92–110; RESP 16–18; TEMP 35.9–37.7; O2SAT 96–100
[2023-03-06] MEDS: ACETAMINOPHEN 325 MG TABLET 650 MG PO ×4 (03:46→22:28)
[2023-03-06 04:20] LABS: Free T4 Free Thyroxine Reflex 2.17 ng/dL (0.78-2.19)
[2023-03-06 05:14] LABS: Total Triiodothyronine (T3) 1.49 NG/ML (0.97-1.69)
[2023-03-06 06:49] LABS: Basophils Absolute Auto 0.1 K/mm3 (0.0-0.1); Basophils Percent Auto 0.3 % (0.2-1.2); Hematocrit 32.4 % (37.0-47.0); Hemoglobin 10.5 g/dL (12.0-15.0); Immature Granulocyte Absolute 0.09 K/mm3 (0.00-0.031); Immature Granulocyte Percent A 0.6 % (0-0.5); Lymphocytes Absolute Auto 0.98 K/mm3 (0.9-3.2); Lymphocytes Percent Auto 6.5 % (18.3-44.2); Mean Corpuscular HGB Conc 32.4 g/dl (32-36); Mean Corpuscular Hemoglobin 30.4 pg (26-34); Mean Corpuscular Volume 93.9 fl (80-100); Mean Platelet Volume 9.8 fl (7.4-10.4); Monocytes Absolute Auto 1.4 K/mm3 (0.1-0.6); Monocytes Percent Auto 9.6 % (2.6-8.5); Neutrophils Absolute Auto 12.5 K/mm3 (1.3-6.7); Platelet Count Result 193 k/mm3 (150-375); Red Blood Count 3.45 M/mm3 (4.2-5.4); Red Cell Distribution Width 13.7 % (11.5-14.5)
[2023-03-06 07:03] LABS: Anion Gap 6 mmol/L (8-16); Blood Urea Nitrogen 23 mg/dL (7-17); Calcium 8.9 mg/dL (8.4-10.2); Carbon Dioxide 23 mmol/L (22-30); Chloride 104 mmol/L (98-107); Estimated CRCL calculation 48 ml/min; Estimated Glomerular Filt Rate 54; Glucose 127 mg/dL (65-110); Magnesium 2.1 mg/dL (1.6-2.3); Potassium 3.6 mmol/L (3.4-5.0); Sodium 133 mmol/L (137-145)
--- NOTE | 2023-03-06 08:43 | PM.IMPN ---
Progress Note: A&P Assessment and Plan (1) Urinary tract infection: Code(s): N39.0 - Urinary tract infection, site not specified Status: Acute (2) Dehydration: Code(s): E86.0 - Dehydration Status: Acute (3) Systemic inflammatory response syndrome: Code(s): R65.10 - Systemic inflammatory response syndrome (SIRS) of non-infectious origin without acute organ dysfunction Status: Acute (4) Exertional dyspnea: Code(s): R06.09 - Other forms of dyspnea Status: Acute (5) Hypertension: Code(s): I10 - Essential (primary) hypertension Status: Acute (6) Hyperlipidemia: Code(s): E78.5 - Hyperlipidemia, unspecified Status: Acute (7) Prediabetes: Code(s): R73.03 - Prediabetes Status: Chronic (8) Chronic kidney disease, stage 3: Code(s): N18.30 - Chronic kidney disease, stage 3 unspecified Status: Acute Plan This is a very pleasant 77-year-old female with hypertension, hyperlipidemia, prediabetes, and chronic kidney disease who presented to the emergency department for evaluation of fever and shortness of breath. The patient provides the following history. She has not been feeling well for several days with generalized malaise, muscle aches, fever, nausea, poor appetite, and shaking chills. She has a dry, nonproductive cough though that is not necessarily unusual for her. She has mild shortness of breath with exertion. Additionally she reports an aching discomfort in the left scapular region which just started today. She has been taking Tylenol at home for her fever however it only lasts about 4 to 6 hours before the fever returns. She denies headache, neck ache, sore throat, chest and pleuritic pain, vomiting, diarrhea, rash, joint swelling, he wounds, bites, and dysuria. Of note she was seen in the emergency department 3 weeks ago for a syncopal episode while at an outdoor sporting event. Per patient report everything checked out and she was discharged home with presumed syncope due to the heat. Prior to that syncopal episode however she reports having right-sided flank pain though that has not recurred. She was afebrile on arrival to the emergency department with stable blood pressures. Labs were significant for WBC count of 16.9, BUN 22, creatinine 1.20, glucose 149, D-dimer 1.46, proBNP 733. She was negative for influenza, RSV, and COVID. Chest x-ray showed no acute cardiopulmonary disease. Chest CTA showed no evidence of acute pulmonary embolism. She is being admitted in this setting for close monitoring and further evaluation. Intermittently tachycardic which is improving now. Mild spike a fever at 3:00 a.m. 99.8. On ceftriaxone for possible UTI. Home hemo dilutional anemia noted neutrophilia present Elevated D-dimer Mild hyponatremia Pre diabetes A1c at 5.8 Abnormal TSH TSH less than 0.015. Free T3-T4 was normal repeat these levels again. Will also check thyroid antibodies. CTA was done at 3:00 p.m. this might explain abnormal TSH will repeat. 2.4 cm left thyroid nodule evident which is previously biopsied Gallstone Constipation Procalcitonin was 0.9 indeterminate DVT prophylaxis with the Lovenox Exertional dyspnea check echo Subjective Date/time seen: 03/06/23 08:43 Interval history: This is a very pleasant 77-year-old female with hypertension, hyperlipidemia, prediabetes, and chronic kidney disease who presented to the emergency department for evaluation of fever and shortness of breath. The patient provides the following history. She has not been feeling well for several days with generalized malaise, muscle aches, fever, nausea, poor appetite, and shaking chills. She has a dry, nonproductive cough though that is not necessarily unusual for her. She has mild shortness of breath with exertion. Additionally she reports an aching discomfort in the left scapular region which just started today. She has been taking Tylenol at home for her fever however
[2023-03-06] MEDS: OMEGA 3 POLYUNSAT FATTY ACIDS 1 GM CAP PO ×2 (09:08→16:20)
[2023-03-06] MEDS: ASCORBIC ACID 500 MG TABLET 1000 MG PO (09:08)
[2023-03-06] MEDS: DICLOFENAC SOD 75 MG TABLET.EC PO ×2 (09:08→16:20)
[2023-03-06] MEDS: CALCIUM CARBONATE (OSCAL) 500 MG TABLET PO (09:08)
[2023-03-06] MEDS: ATORVASTATIN 10 MG TABLET PO (09:08)
[2023-03-06] MEDS: CHOLECALCIFEROL 1,000 UNITS TABLET 1000 UNITS PO (09:08)
[2023-03-06] MEDS: LOSARTAN POTASSIUM 25 MG TABLET 75 MG PO (09:09)
[2023-03-06] MEDS: ASPIRIN 81 MG ENTERIC TABLET PO (09:09)
[2023-03-06 18:46] LABS: Thyroid Stimulating Hormone Reflex < 0.015 uIU/mL (0.465-4.68)
[2023-03-06 20:16] LABS: Free T4 Free Thyroxine Reflex 1.67 ng/dL (0.78-2.19)
[2023-03-07] VITALS (11 sets, daily range): BP systolic 125–154; BP diastolic 58–90; PULSE 74–110; RESP 16–18; TEMP 36.1–36.4; O2SAT 97–100
--- NOTE | 2023-03-07 | ECHO_ITS ---
Patient Info Name: Korina Cavazos Age: 77 years : 1945 Gender: Female Ht: 62 in Wt: 222 lbs BSA: 2.15 m2 HR: 83 bpm BP: 125 / 58 mmHg Technical Quality: Fair Exam Date: 03/07/2023 9:43 AM Exam Location: [facility] Pulmonary Exam Room: [facility] [place] Patient Status: Inpatient Admit Date: 03/05/2023 Staff Ordering Physician: Gala Harris PA-C Frame Expander: Aggie Maza RDCS Attending Provider: Rajiv Tripathi MD Referring Physician: Kimberly MERCHANT; Exam Type: CA echo dop color flow w con Study Info Indications - SYNCOPE SOB Complete two-dimensional, color flow and Doppler transthoracic echocardiogram is performed with contrast to opacify the left ventricle and to improve the deliniation of the left ventricle endocardial borders. Contrast/Agitated Saline Contrast/Ag. Saline: Definity Amount: 2.00 ml Administered By: Aggie Maza [facility] Existing IV Access: Yes IV Access Condition: patent with no signs of infiltration Summary 1. Left ventricular chamber dimension is normal. 2. Definity contrast administered improved wall motion interpretation. 3. Left ventricular systolic function is hyperdynamic, estimated at >70%. 4. The left ventricular diastolic function is grade I diastolic dysfunction. 5. E/e' 11 is mildly elevated. 6. Left atrial chamber dimension is mildly enlarged. 7. The mitral valve has mildly calcified annulus. 8. There is mild tricuspid valve regurgitation. 9. No pulmonary hypertension, estimated pulmonary arterial systolic pressure is 37 mmHg. Left Ventricle E/e' 11 is mildly elevated. Definity contrast administered improved wall motion interpretation. Left ventricular chamber dimension is normal. Left ventricular systolic function is hyperdynamic, estimated at >70%. The left ventricular diastolic function is grade I diastolic dysfunction. Right Ventricle Right ventricular chamber dimension is normal. Right ventricular systolic function is normal. Left Atria Left atrial chamber dimension is mildly enlarged. Right Atria Right atrial chamber dimension is normal. Aortic Valve The aortic valve is trileaflet. There is no aortic valve stenosis. There is no aortic valve regurgitation. Pulmonic Valve There is no pulmonic regurgitation. Mitral Valve The mitral valve has mildly calcified annulus. There is no mitral valve stenosis. There is no mitral valve regurgitation. Tricuspid Valve There is mild tricuspid valve regurgitation. No pulmonary hypertension, estimated pulmonary arterial systolic pressure is 37 mmHg. Pericardium/Pleural There is no pericardial effusion. Inferior Vena Cava Normal inferior vena cava with >50% collapse upon inspiration consistent with normal right atrial pressure, 5 mmHg. Aorta The aortic root size at the sinus of Valsalva is normal. Left Ventricular Outflow Tract Name Value Normal LVOT 2D LVOT Diameter 1.98 cm LVOT Doppler LVOT Peak Gradient 7 mmHg LVOT Mean Gradient 5 mmHg LVOT VTI 23.84 cm LVOT VTI/AV VTI Ratio 0.88 LVOT Stroke Volume
[2023-03-07] MEDS: calcium polycarbophiL 625 MG TABLET 1250 MG PO (09:19)
[2023-03-07] MEDS: hydroCHLOROthiazide 6.25 MG TABLET PO (09:19)
[2023-03-07] MEDS: ENOXAPARIN 40 MG/0.4 ML SYRINGE SUB-Q (09:20)
[2023-03-07] MEDS: DICLOFENAC SOD 75 MG TABLET.EC PO ×2 (09:20→17:32)
[2023-03-07] MEDS: ASCORBIC ACID 500 MG TABLET 1000 MG PO (09:20)
[2023-03-07] MEDS: ACETAMINOPHEN 325 MG TABLET 650 MG PO (09:20)
[2023-03-07] MEDS: ATORVASTATIN 10 MG TABLET PO (09:21)
[2023-03-07] MEDS: ASPIRIN 81 MG ENTERIC TABLET PO (09:21)
[2023-03-07] MEDS: CALCIUM CARBONATE (OSCAL) 500 MG TABLET PO (09:21)
[2023-03-07] MEDS: CHOLECALCIFEROL 1,000 UNITS TABLET 1000 UNITS PO (09:21)
[2023-03-07] MEDS: LOSARTAN POTASSIUM 25 MG TABLET 75 MG PO (09:22)
[2023-03-07] MEDS: OMEGA 3 POLYUNSAT FATTY ACIDS 1 GM CAP PO ×2 (09:22→17:32)
[2023-03-07 09:39] LABS: Basophils Percent Auto 0.4 % (0.2-1.2); Eosinophils Absolute Auto 0.1 K/mm3 (0-0.3); Eosinophils Percent Auto 0.8 % (0-4.4); Hematocrit 33.7 % (37.0-47.0); Immature Granulocyte Absolute 0.03 K/mm3 (0.00-0.031); Immature Granulocyte Percent A 0.3 % (0-0.5); Lymphocytes Absolute Auto 1.23 K/mm3 (0.9-3.2); Lymphocytes Percent Auto 12.6 % (18.3-44.2); Mean Corpuscular HGB Conc 32.6 g/dl (32-36); Mean Corpuscular Hemoglobin 30.4 pg (26-34); Mean Corpuscular Volume 93.1 fl (80-100); Mean Platelet Volume 9.2 fl (7.4-10.4); Monocytes Absolute Auto 0.9 K/mm3 (0.1-0.6); Monocytes Percent Auto 9.4 % (2.6-8.5); Neutrophils Absolute Auto 7.5 K/mm3 (1.3-6.7); Neutrophils Percent Auto 76.5 % (45.5-73.1); Platelet Count Result 188 k/mm3 (150-375); Red Blood Count 3.62 M/mm3 (4.2-5.4); Red Cell Distribution Width 13.3 % (11.5-14.5); White Blood Count 9.8 K/mm3 (4.5-10.0)
[2023-03-07 09:51] LABS: Alanine Aminotransferase 21 U/L (6-35); Albumin Level 3.6 g/dL (3.5-5.1); Alkaline Phosphatase 80 U/L (38-126); Anion Gap 5 mmol/L (8-16); Aspartate Amino Transferase 22 U/L (14-36); Bilirubin,Total 0.6 mg/dL (0.2-1.3); Blood Urea Nitrogen 25 mg/dL (7-17); Calcium 9.5 mg/dL (8.4-10.2); Carbon Dioxide 25 mmol/L (22-30); Chloride 106 mmol/L (98-107); Estimated CRCL calculation 44 ml/min; Estimated Glomerular Filt Rate 48; Glucose 173 mg/dL (65-110); Magnesium 2.3 mg/dL (1.6-2.3); Potassium 3.9 mmol/L (3.4-5.0); Sodium 136 mmol/L (137-145)
[2023-03-07] MEDS: PERFLUTREN LIPID MICROSPHERES 1.5 ML VIAL DILUTED TO 10 ML TOTAL VOLUME IV PUSH (10:15)
--- NOTE | 2023-03-07 11:31 | IVDEFINITY ---
Prior to administration of IV Definity the patient was educated on the risks and benefits of the imaging enhancing agent including potential adverse side effects. The patient verbalized understanding. Allergies were verified. No exclusion criteria were identified and at least one of the following inclusion criteria were met: 1) physician request, 2) patient technically difficult to image (per the [place] [employer] guidelines of two or more segments not discernable within the apical view), or 3) questionable left ventricular function. ?
--- NOTE | 2023-03-07 17:27 | PM.IMPN ---
Progress Note: A&P Assessment and Plan (1) Urinary tract infection: Code(s): N39.0 - Urinary tract infection, site not specified Status: Acute (2) Dehydration: Code(s): E86.0 - Dehydration Status: Acute (3) Systemic inflammatory response syndrome: Code(s): R65.10 - Systemic inflammatory response syndrome (SIRS) of non-infectious origin without acute organ dysfunction Status: Acute (4) Exertional dyspnea: Code(s): R06.09 - Other forms of dyspnea Status: Acute (5) Hypertension: Code(s): I10 - Essential (primary) hypertension Status: Acute (6) Hyperlipidemia: Code(s): E78.5 - Hyperlipidemia, unspecified Status: Acute (7) Prediabetes: Code(s): R73.03 - Prediabetes Status: Chronic (8) Chronic kidney disease, stage 3: Code(s): N18.30 - Chronic kidney disease, stage 3 unspecified Status: Acute Plan This is a very pleasant 77-year-old female with hypertension, hyperlipidemia, prediabetes, and chronic kidney disease who presented to the emergency department for evaluation of fever and shortness of breath. The patient provides the following history. She has not been feeling well for several days with generalized malaise, muscle aches, fever, nausea, poor appetite, and shaking chills. She has a dry, nonproductive cough though that is not necessarily unusual for her. She has mild shortness of breath with exertion. Additionally she reports an aching discomfort in the left scapular region which just started today. She has been taking Tylenol at home for her fever however it only lasts about 4 to 6 hours before the fever returns. She denies headache, neck ache, sore throat, chest and pleuritic pain, vomiting, diarrhea, rash, joint swelling, he wounds, bites, and dysuria. Of note she was seen in the emergency department 3 weeks ago for a syncopal episode while at an outdoor sporting event. Per patient report everything checked out and she was discharged home with presumed syncope due to the heat. Prior to that syncopal episode however she reports having right-sided flank pain though that has not recurred. She was afebrile on arrival to the emergency department with stable blood pressures. Labs were significant for WBC count of 16.9, BUN 22, creatinine 1.20, glucose 149, D-dimer 1.46, proBNP 733. She was negative for influenza, RSV, and COVID. Chest x-ray showed no acute cardiopulmonary disease. Chest CTA showed no evidence of acute pulmonary embolism. She is being admitted in this setting for close monitoring and further evaluation. Intermittently tachycardic which is improving now. Mild spike a fever at 3:00 a.m. 99.8. On ceftriaxone for possible UTI. Home hemo dilutional anemia noted neutrophilia present. Leukocytosis has resolved now with antibiotic therapy will continue ceftriaxone follow the cultures which remains negative so far if remains normal may switch to oral and discharged on oral antibiotics to complete the course Elevated D-dimer CTA was negative for PE. She does endorse exertional dyspnea which is being evaluated with echocardiogram. Possibility of asthma discussed and advised to get PFT as an outpatient basis Mild hyponatremia Pre diabetes A1c at 5.8 Abnormal TSH TSH less than 0.015. Free T3-T4 was normal repeat these levels again and came back similar with undetectable TSH but normal T3-T4. I suspect these are related to her biotin use as well as iodine load with CTA. She will need to repeat these levels in few weeks. I have advised to stay off biotin until this test is repeated. Thyroid antibiotics has been ordered which is pending at this time.. CTA was done at 3:00 p.m. this might explain abnormal TSH will repeat. 2.4 cm left thyroid nodule evident which is previously biopsied which patient reports came back okay. Gallstone Constipation Procalcitonin was 0.9 indeterminate DVT prophylaxis with the Cobra Styletnox Exertional dyspnea check echo which is
[2023-03-07] MEDS: polyethylene glycoL 3350 17 GM POWD.PACK PO (17:58)
[2023-03-08] VITALS (9 sets, daily range): BP systolic 147–152; BP diastolic 76; PULSE 84–112; RESP 16–18; TEMP 35.9–36.4; O2SAT 97
[2023-03-08 06:16] LABS: Basophils Percent Auto 0.6 % (0.2-1.2); Eosinophils Absolute Auto 0.2 K/mm3 (0-0.3); Eosinophils Percent Auto 2.7 % (0-4.4); Hematocrit 31.7 % (37.0-47.0); Hemoglobin 10.2 g/dL (12.0-15.0); Immature Granulocyte Absolute 0.03 K/mm3 (0.00-0.031); Immature Granulocyte Percent A 0.5 % (0-0.5); Lymphocytes Absolute Auto 1.95 K/mm3 (0.9-3.2); Lymphocytes Percent Auto 29.4 % (18.3-44.2); Mean Corpuscular HGB Conc 32.2 g/dl (32-36); Mean Corpuscular Hemoglobin 30.1 pg (26-34); Mean Corpuscular Volume 93.5 fl (80-100); Mean Platelet Volume 9.4 fl (7.4-10.4); Monocytes Absolute Auto 0.8 K/mm3 (0.1-0.6); Monocytes Percent Auto 11.5 % (2.6-8.5); Neutrophils Absolute Auto 3.7 K/mm3 (1.3-6.7); Neutrophils Percent Auto 55.3 % (45.5-73.1); Platelet Count Result 196 k/mm3 (150-375); Red Blood Count 3.39 M/mm3 (4.2-5.4); Red Cell Distribution Width 13.6 % (11.5-14.5); White Blood Count 6.6 K/mm3 (4.5-10.0)
[2023-03-08 06:27] LABS: Anion Gap 5 mmol/L (8-16); Blood Urea Nitrogen 26 mg/dL (7-17); Calcium 9.2 mg/dL (8.4-10.2); Carbon Dioxide 27 mmol/L (22-30); Chloride 106 mmol/L (98-107); Estimated CRCL calculation 40 ml/min; Estimated Glomerular Filt Rate 44; Glucose 108 mg/dL (65-110); Magnesium 2.4 mg/dL (1.6-2.3); Sodium 138 mmol/L (137-145)
--- NOTE | 2023-03-08 08:46 | P.PNIM_ITS ---
Progress Note: A&P Assessment and Plan (1) Urinary tract infection: Code(s): N39.0 - Urinary tract infection, site not specified Status: Acute (2) Dehydration: Code(s): E86.0 - Dehydration Status: Acute (3) Systemic inflammatory response syndrome: Code(s): R65.10 - Systemic inflammatory response syndrome (SIRS) of non-infectious origin without acute organ dysfunction Status: Acute (4) Exertional dyspnea: Code(s): R06.09 - Other forms of dyspnea Status: Acute (5) Hypertension: Code(s): I10 - Essential (primary) hypertension Status: Acute (6) Hyperlipidemia: Code(s): E78.5 - Hyperlipidemia, unspecified Status: Acute (7) Prediabetes: Code(s): R73.03 - Prediabetes Status: Chronic (8) Chronic kidney disease, stage 3: Code(s): N18.30 - Chronic kidney disease, stage 3 unspecified Status: Acute (9) Uterus prolapse: Code(s): N81.4 - Uterovaginal prolapse, unspecified Status: Acute Plan This is a very pleasant 77-year-old female with hypertension, hyperlipidemia, prediabetes, and chronic kidney disease who presented to the emergency department for evaluation of fever and shortness of breath. The patient provides the following history. She has not been feeling well for several days with generalized malaise, muscle aches, fever, nausea, poor appetite, and shaking chills. She has a dry, nonproductive cough though that is not necessarily u nusual for her. She has mild shortness of breath with exertion. Additionally she reports an aching discomfort in the left scapular region which just started today. She has been taking Tylenol at home for her fever however it only lasts about 4 to 6 hours before the fever returns. She denies headache, neck ache, sore throat, chest and pleuritic pain, vomiting, diarrhea, rash, joint swelling, he wounds, bites, and dysuria. Of note she was seen in the emergency department 3 weeks ago for a syncopal episode while at an outdoor sporting event. Per patient report everything checked out and she was discharged home with presumed syncope due to the heat. Prior to that syncopal episode however she reports having right-sided flank pain though that has not recurred. She was afebrile on arrival to the emergency department with stable blood pressures. Labs were significant for WBC count of 16.9, BUN 22, creatinine 1.20, glucose 149, D-dimer 1.46, proBNP 733. She was negative for influenza, RSV, and COVID. Chest x-ray showed no acute cardiopulmonary disease. Chest CTA showed no evidence of acute pulmonary embolism. She is being admitted in this setting for close monitoring and further evaluation. Intermittently tachycardic which is improving now. Mild spike a fever at 3:00 a.m. 99.8. On ceftriaxone for possible UTI. Home hemo dilutional anemia noted neutrophilia present. Leukocytosis has resolved now with antibiotic therapy will continue ceftriaxone follow the cultures which remains negative so far if remains normal may switch to oral and discharged on oral antibiotics to complete the course Elevated D-dimer CTA was negative for PE. She does endorse exertional dyspnea which is being evaluated with echocardiogram. Possibility of asthma discussed and advised to get PFT as an outpatient basis Mild hyponatremia Pre diabetes A1c at 5.8 Abnormal TSH TSH less than 0.015. Free T3-T4 was normal repeat these levels again and came back similar with undetectable TSH but normal T3-T4. I suspect these are related to her biotin use as well as iodine load with CTA. She will need to repeat these levels in few weeks. I have advised to stay off biotin until this test i
[2023-03-08] MEDS: OMEGA 3 POLYUNSAT FATTY ACIDS 1 GM CAP PO ×2 (09:15→17:13)
[2023-03-08] MEDS: DICLOFENAC SOD 75 MG TABLET.EC PO ×2 (09:15→17:13)
[2023-03-08] MEDS: LOSARTAN POTASSIUM 25 MG TABLET 75 MG PO (09:15)
[2023-03-08] MEDS: ATORVASTATIN 10 MG TABLET PO (09:15)
[2023-03-08] MEDS: CHOLECALCIFEROL 1,000 UNITS TABLET 1000 UNITS PO (09:15)
[2023-03-08] MEDS: ASPIRIN 81 MG ENTERIC TABLET PO (09:15)
[2023-03-08] MEDS: polyethylene glycoL 3350 17 GM POWD.PACK PO (09:16)
[2023-03-08] MEDS: ASCORBIC ACID 500 MG TABLET 1000 MG PO (09:16)
[2023-03-08] MEDS: hydroCHLOROthiazide 6.25 MG TABLET PO (09:17)
[2023-03-08] MEDS: calcium polycarbophiL 625 MG TABLET 1250 MG PO (12:26)
[2023-03-08] MEDS: ENOXAPARIN 40 MG/0.4 ML SYRINGE SUB-Q (12:26)
[2023-03-08] MEDS: CALCIUM CARBONATE (OSCAL) 500 MG TABLET PO (12:26)
[2023-03-08] MEDS: AMOXICILLIN/CLAVULANATE K 875-125 MG TAB 1 TABLET PO (21:02)
[2023-03-09] VITALS (9 sets, daily range): BP systolic 138–148; BP diastolic 58–67; PULSE 73–115; RESP 14–18; TEMP 35.7–36.8; O2SAT 96–100
--- NOTE | 2023-03-09 08:13 | WPDCN ---
Assessment and Plan Assessment and plan (1) Prolapse of female pelvic organs: Code(s): N81.9 - Female genital prolapse, unspecified Status: Acute Assessment and Plan: pleasant 77-year-old female who was admitted with shortness of breath and generalized malaise Appreciate consultation to discuss patient's pelvic organ prolapse Patient noted to have a vaginal bulge from the vaginal introitus Patient was found to have complete procidentia on exam with Valsalva Discussed pelvic organ prolapse at length with the patient Patient reports chronic constipation as an attributing factor Patient denies any vaginal bleeding. She states she is able to void and empty her bowels Briefly discussed management options of uterine prolapse Discussed pelvic floor physical therapy, vaginal pessary, surgeries Recommended patient follow up outpatient for further evaluation and to discuss further management Will defer medical management to hospitalist team Appreciate the opportunity to consult on this patient HPI Data of Consult Date/Time: 03/09/23 08:13 Requesting Physician: Rajiv Tripathi MD Primary Care Provider: Lucero Frederick DO Consult Narrative Narrative: Korina Cavazos is a 77 year old female who presented to the emergency room with shortness of breath and generalized malaise. Patient's medical history is complicated by hypertension, hyperlipidemia, chronic kidney disease, and prediabetes. I was consulted discussed pelvic organ prolapse. Nursing staff and patient noticed a visible bulge coming from the vagina. Patient states she has had this issue for some time. Patient denies any discomfort or pressure. She denies any difficulty voiding. Patient does struggle with chronic constipation. She denies the need to splint to a vacuum aid her bowels. Patient denies any vaginal bleeding. Review of Systems Review of Systems: All systems reviewed & are unremarkable except as noted in HPI and below PMFSH Past Medical History Medical History (Updated 03/09/23 @ 08:26 by Tom Reyes MD) Arthritis Chronic kidney disease, stage 3 Gastroesophageal reflux disease Hyperlipidemia Hypertension Prediabetes Surgical History Surgical History (Updated 03/05/23 @ 22:26 by Gala Harris PA-C) History of section Family History Family History Mother Diabetes mellitus Family history of cardiovascular disease Family history of genetic disorder Family history of coronary artery disease Father Hypertension Social History Social History (Updated 03/05/23 @ 22:26 by Gala Harris PA-C) Social History: Surrogate medical decision maker: Lucero Maldonado, daughter. Code status: Full code. Smoking status: Never smoker Second hand tobacco smoke exposure: No Alcohol intake: never Substance use: never Lack of Transportation: No Lack of Food: Never True Current Housing: I Have Housing Concerned About Future Housing: No Difficulty Paying Gas/Electric Bills: No Difficulty Paying for Meds: No Currently Unemployed: No Education: High School Diploma/GED Difficulty w/ Childcare or Family Care: No Spiritual care concerns: No Meds Home Medications and Allergies Home Medications Medication Instructions Recorded Confirmed Type calcium carbonate 500 mg calcium 500 mg PO DAILY 05/06/19 03/05/23 History (1,250 mg) tablet (Calcium 500) glucosamine 500 mg-chondroit 400 1 cap PO DAILY 05/06/19 03/05/23 History mg-vit C 2 mg-kateryna 0.33 mg capsule ascorbic acid (vitamin C) 1,000 mg 1 g PO DAILY 09/02/20 03/05/23 History tablet omega 5-qew-grm-fish oil 1,200 mg 1 cap PO BID 09/02/20 03/05/23 History (144 mg-216 mg) capsule (Fish Oil) aspirin 81 mg tablet,delayed 81 mg PO DAILY 02/04/22 03/05/23 History release (Adult Aspirin Regimen) biotin 10,000 mcg capsule 10,000 mcg PO BEAU
--- NOTE | 2023-03-09 08:24 | PM.IMPN ---
Progress Note: A&P Assessment and Plan (1) Urinary tract infection: Code(s): N39.0 - Urinary tract infection, site not specified Status: Acute (2) Dehydration: Code(s): E86.0 - Dehydration Status: Acute (3) Systemic inflammatory response syndrome: Code(s): R65.10 - Systemic inflammatory response syndrome (SIRS) of non-infectious origin without acute organ dysfunction Status: Acute (4) Exertional dyspnea: Code(s): R06.09 - Other forms of dyspnea Status: Acute (5) Hypertension: Code(s): I10 - Essential (primary) hypertension Status: Acute (6) Hyperlipidemia: Code(s): E78.5 - Hyperlipidemia, unspecified Status: Acute (7) Prediabetes: Code(s): R73.03 - Prediabetes Status: Chronic (8) Chronic kidney disease, stage 3: Code(s): N18.30 - Chronic kidney disease, stage 3 unspecified Status: Acute (9) Uterus prolapse: Code(s): N81.4 - Uterovaginal prolapse, unspecified Status: Acute Plan This is a very pleasant 77-year-old female with hypertension, hyperlipidemia, prediabetes, and chronic kidney disease who presented to the emergency department for evaluation of fever and shortness of breath suspecting UTI and dehyartion Labs were significant for WBC count of 16.9, BUN 22, creatinine 1.20, Intermittently tachycardic which is improving now. Mild spike a fever at 3:00 a.m. 99.8. received ceftriaxone for possible UTI. now Leukocytosis has resolved follow the cultures which remains negative so far if remains normal may switch to oral and discharged on oral antibiotics to complete the course CT abdomen pelvis suggests acute cholecystitis Cholelithiasis. Gallbladder distention may be secondary to fasting or acute cholecystitis repeat abd US suggest gallstone with mild gallbladder wall thickening, possible pericholecystic fluid. Patient respond to antibiotics treatment may consult GS, general surgeon recommend no surgical intervention at this moment Continue antibiotics Short of breath Elevated D-dimer CTA was negative for PE. She does endorse exertional dyspnea which is being evaluated with echocardiogram. Echo suggest normal EF above 70%, grade 1 diastolic dysfunction Possibility of asthma discussed and advised to get PFT as an outpatient basis Mild hyponatremia Pre diabetes A1c at 5.8 Abnormal TSH TSH less than 0.015. Free T3-T4 was normal repeat these levels again and came back similar with undetectable TSH but normal T3-T4. I suspect these are related to her biotin use as well as iodine load with CTA. She will need to repeat these levels in few weeks. I have advised to stay off biotin until this test is repeated. Thyroid antibiotics has been ordered which is pending at this time.. 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 Patient denies abdomen pain nausea vomiting Exam Narrative: General: Well appearing not in acute distress HEENT: PERRL, EOMI. Mild periorbital edema. Sclera anicteric. Dry mucous membranes. Oropharynx is clear. Neck: Supple. Left thyroid is slightly enlarged. Respiratory: Respirations are nonlabored and lungs are clear to auscultation bilaterally. Cardiovascular: Regular rate and rhythm with normal S1-S2. Gastrointestinal: Abdomen is soft, nontender, and nondistended with positive bowel sounds. No CVA tenderness. No guarding or rebound tenderness. Skin: Warm and dry. No rash or lesions on limited exam. Extremities: No cyanosis, clubbing, or edema. Radial and pedal pulses intact. Neurological: Alert. Cranial nerves 2-12 are grossly intact. No gross focal deficits to casual conversation. Psychiatric: Pleasant and cooperative with normal mood and affect. Judgment and ins
[2023-03-09] MEDS: hydroCHLOROthiazide 6.25 MG TABLET PO (09:58)
[2023-03-09] MEDS: DICLOFENAC SOD 75 MG TABLET.EC PO ×2 (09:58→17:19)
[2023-03-09] MEDS: ENOXAPARIN 40 MG/0.4 ML SYRINGE SUB-Q (09:58)
[2023-03-09] MEDS: ASPIRIN 81 MG ENTERIC TABLET PO (09:58)
[2023-03-09] MEDS: ASCORBIC ACID 500 MG TABLET 1000 MG PO (09:58)
[2023-03-09] MEDS: ATORVASTATIN 10 MG TABLET PO (09:58)
[2023-03-09] MEDS: LOSARTAN POTASSIUM 25 MG TABLET 75 MG PO (09:59)
[2023-03-09] MEDS: calcium polycarbophiL 625 MG TABLET 1250 MG PO (09:59)
[2023-03-09] MEDS: CHOLECALCIFEROL 1,000 UNITS TABLET 1000 UNITS PO (09:59)
[2023-03-09] MEDS: CALCIUM CARBONATE (OSCAL) 500 MG TABLET PO (09:59)
[2023-03-09] MEDS: OMEGA 3 POLYUNSAT FATTY ACIDS 1 GM CAP PO ×2 (09:59→17:19)
[2023-03-09] MEDS: AMOXICILLIN/CLAVULANATE K 875-125 MG TAB 1 TABLET PO ×2 (09:59→20:11)
[2023-03-09] MEDS: cefTRIAXone 2 GM/NS 100 ML 2 GM/100 ML BAG IVPB (12:36)
[2023-03-09] MEDS: metroNIDAZOLE 500 MG/ISO 100ML 500 MG/100 ML BAG 100 MG IVPB ×2 (13:19→21:12)
[2023-03-09 13:55] LABS: Thyroid Stimulating Immunoglob <89 % baseline (<140)
--- NOTE | 2023-03-09 14:12 | PM.CNGS ---
Assessment and Plan Assessment and plan (1) Cholecystitis with cholelithiasis: Code(s): K80.10 - Calculus of gallbladder with chronic cholecystitis without obstruction Status: Acute Assessment and Plan: The patient presented to the ER four days ago with fevers and shortness of breath. She has been treated with IV antibiotics for a urinary tract infection and has been improving. RUQ abdominal ultrasound ordered today and showed cholelithiasis with mild gallbladder wall thickening and possible pericholecystic fluid. She is tolerating a regular diet and not complaining of any abdominal pain at this time. Her abdominal exam is benign. Her leukocytosis has resolved and she has been afebrile for at least 3 days. I discussed the patient's case with Dr. Riddle. She does not appear to have acute cholecystitis at this time. It is difficult to tell if her initial diagnosis was acute cholecystics versus urinary tract infection. It is okay from our standpoint to discharge the patient and have her follow-up with Dr. Riddle as an outpatient. Recommend following a low fat diet, which I discussed with the patient as well. (2) Urinary tract infection: Code(s): N39.0 - Urinary tract infection, site not specified Status: Acute Assessment and Plan: Continue antibiotics per Hospitalist. (3) Hypertension: Code(s): I10 - Essential (primary) hypertension Status: Acute (4) Chronic kidney disease, stage 3: Code(s): N18.30 - Chronic kidney disease, stage 3 unspecified Status: Acute (5) Prediabetes: Code(s): R73.03 - Prediabetes Status: Chronic (6) Hepatic steatosis: Code(s): K76.0 - Fatty (change of) liver, not elsewhere classified Status: Acute (7) Obesity: Code(s): E66.9 - Obesity, unspecified Status: Acute Plan I have discussed the patient's case and plan of care with Dr. Riddle. History of Present Illness Consult details Consult date: 03/09/23 Reason for consult: other (Acute cholecystitis) Requesting physician: Charles Rosario MD Narrative: This is a 77-year-old woman who we have been asked to see in surgical consultation for possible acute cholecystitis. She presented to the ER four days ago with complaints of fevers, nausea, and shortness of breath. She reports developing a fever and chills last Monday. She also noticed nausea and poor appetite. She continued to have generalized malaise and fevers over the next two days. By Monday, she additionally had some exertional shortness of breath. Initial workup showed leukocytosis, abnormal urinalysis concerning for a UTI, and an elevated D-dimer. She had a CTA of the chest negative for PE. She was admitted and started on IV Rocephin. The following day, 03/06/23, she had a CT abdomen and pelvis without contrast due to reports of previous flank pain prior to admission, which showed cholelithiasis with a distended gallbladder, no hydronephrosis, left inguinal hernia containing fat, and a stool-distended rectum. She has had multiple bowel movements since admission. She has clinically improved over the next few days. She has been afebrile for three days and her white blood cell count has normalized. She is now tolerating a regular diet. She has mentioned intermittent periumbilical pain that only occurs when she coughs. She subsequently had a RUQ abdominal ultrasound that was then ordered today and showed cholelithiasis with mild wall thickening and possible pericholecystic fluid. Our service was then consulted for possible acute cholecystitis and she is seen on the medical floor. She is tolerating a regular diet today. Denies any nausea or vomiting. Denies any abdominal pain at this time. Denies ever having this abdominal pain in the past. She does report having an episode of right-sided abdominal pain after having a syncopal episode once last month. No other complaints at this time. Review of Systems Review of Systems: All systems r
[2023-03-10] MEDS: metroNIDAZOLE 500 MG/ISO 100ML 500 MG/100 ML BAG 100 MG IVPB (05:07)
[2023-03-10 05:13] LABS: Thyroid Peroxidase Antibodies 3 IU/mL (<9)
[2023-03-10 06:00] VITALS: BP 122/84; PULSE 82; RESP 16; TEMP 36.6; O2SAT 95
--- NOTE | 2023-03-10 08:16 | P.PNIM_ITS ---
Progress Note: A&P Assessment and Plan (1) Urinary tract infection: Code(s): N39.0 - Urinary tract infection, site not specified Status: Acute (2) Dehydration: Code(s): E86.0 - Dehydration Status: Acute (3) Systemic inflammatory response syndrome: Code(s): R65.10 - Systemic inflammatory response syndrome (SIRS) of non-infectious origin without acute organ dysfunction Status: Acute (4) Exertional dyspnea: Code(s): R06.09 - Other forms of dyspnea Status: Acute (5) Hypertension: Code(s): I10 - Essential (primary) hypertension Status: Acute (6) Hyperlipidemia: Code(s): E78.5 - Hyperlipidemia, unspecified Status: Acute (7) Prediabetes: Code(s): R73.03 - Prediabetes Status: Chronic (8) Chronic kidney disease, stage 3: Code(s): N18.30 - Chronic kidney disease, stage 3 unspecified Status: Acute (9) Uterus prolapse: Code(s): N81.4 - Uterovaginal prolapse, unspecified Status: Acute Plan This is a very pleasant 77-year-old female with hypertension, hyperlipidemia, prediabetes, and chronic kidney disease who presented to the emergency department for evaluation of fever and shortness of breath suspecting UTI and dehyartion Labs were significant for WBC count of 16.9, BUN 22, creatinine 1.20, Intermittently tachycardic which is improving now. Mild spike a fever at 3:00 a.m. 99.8. received ceftriaxone for possible UTI. now Leukocytosis has resolved follow the cultures which remains negative so far if remains normal may switch to oral and discharged on oral antibiotics to complete the course CT abdomen pelvis suggests acute cholecystitis Cholelithiasis. Gallbladder distention may be secondary to fasting or acute cholecystitis repeat abd US suggest gallstone with mild gallbladder wall thickening, possible pericholecystic fluid. Patient respond to antibiotics treatment may consult GS, general surgeon recommend no surgical intervention at this moment Continue antibiotics Short of breath Elevated D-dimer CTA was negative for PE. She does endorse exertional dyspnea which is being evaluated with echocardiogram. Echo suggest normal EF above 70%, grade 1 diastolic dysfunction Possibility of asthma discussed and advised to get PFT as an outpatient basis Mild hyponatremia Pre diabetes A1c at 5.8 Abnormal TSH TSH less than 0.015. Free T3-T4 was normal repeat these levels again and came back similar with undetectable TSH but normal T3-T4. I suspect these are related to her biotin use as well as iodine load with CTA. She will need to repeat these levels in few weeks. I have advised to stay off biotin until this test is repeated. Thyroid antibiotics has been ordered which is pending at this time.. 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 Patient denies abdomen pain nausea vomiting Exam Narrative: General: Well appearing not in acute distress HEENT: PERRL, EOMI. Mild periorbital edema. Sclera anicteric. Dry mucous membranes. Oropharynx is clear. Neck: Supple. Left thyroid is slightly enlarged. Respiratory: Respirations are nonlabored and lungs are clear to auscultation bilaterally. Cardiovascular: Regular rate and rhythm with normal S1-S2. Gastrointestinal: Abdomen is soft, nontender, and nondiste
--- NOTE | 2023-03-10 08:24 | PM.DS ---
DS: Admitting Diagnosis Discharge Date 03/10 Admitting Diagnosis ?Code(s): N39.0 - Urinary tract infection, site not specified ?Status:?Acute (2) Dehydration: ?Code(s): E86.0 - Dehydration ?Status:?Acute (3) Systemic inflammatory response syndrome: ?Code(s): R65.10 - Systemic inflammatory response syndrome (SIRS) of non-infectious origin without acute organ dysfunction ?Status:?Acute (4) Exertional dyspnea: ?Code(s): R06.09 - Other forms of dyspnea ?Status:?Acute (5) Hypertension: ?Code(s): I10 - Essential (primary) hypertension ?Status:?Acute (6) Hyperlipidemia: ?Code(s): E78.5 - Hyperlipidemia, unspecified ?Status:?Acute (7) Prediabetes: ?Code(s): R73.03 - Prediabetes ?Status:?Chronic (8) Chronic kidney disease, stage 3: ?Code(s): N18.30 - Chronic kidney disease, stage 3 unspecified ?Status:?Acute (9) Uterus prolapse: ?Code(s): N81.4 - Uterovaginal prolapse, unspecified ?Status:?Acute DS: Discharge Diagnosis Discharge Diagnosis (1) Urinary tract infection: Code(s): N39.0 - Urinary tract infection, site not specified Status: Acute (2) Dehydration: Code(s): E86.0 - Dehydration Status: Acute (3) Systemic inflammatory response syndrome: Code(s): R65.10 - Systemic inflammatory response syndrome (SIRS) of non-infectious origin without acute organ dysfunction Status: Acute (4) Exertional dyspnea: Code(s): R06.09 - Other forms of dyspnea Status: Acute (5) Hypertension: Code(s): I10 - Essential (primary) hypertension Status: Acute (6) Hyperlipidemia: Code(s): E78.5 - Hyperlipidemia, unspecified Status: Acute (7) Prediabetes: Code(s): R73.03 - Prediabetes Status: Chronic (8) Chronic kidney disease, stage 3: Code(s): N18.30 - Chronic kidney disease, stage 3 unspecified Status: Acute (9) Uterus prolapse: Code(s): N81.4 - Uterovaginal prolapse, unspecified Status: Acute DS: Summary Hospital Course Hospital Course: This is a very pleasant 77-year-old female with hypertension, hyperlipidemia, prediabetes, and chronic kidney disease who presented to the emergency department for evaluation of fever and shortness of breath suspecting UTI and dehyartion Labs were significant for WBC count of 16.9, BUN 22, creatinine 1.20, Intermittently tachycardic which is improving now. Mild spike a fever at 3:00 a.m. 99.8. received ceftriaxone for possible UTI. now Leukocytosis has resolved follow the cultures which remains negative so far if remains normal may switch to oral and discharged on oral antibiotics to complete the course CT abdomen pelvis suggests acute cholecystitis Cholelithiasis. Gallbladder distention may be secondary to fasting or acute cholecystitis repeat abd US suggest gallstone with mild gallbladder wall thickening, possible pericholecystic fluid. Patient respond to antibiotics treatment may consult GS, general surgeon recommend no surgical intervention at this moment Continue antibiotics after discharge Short of breath Elevated D-dimer CTA was negative for PE. She does endorse exertional dyspnea which is being evaluated with echocardiogram. Echo suggest normal EF above 70%, grade 1 diastolic dysfunction Possibility of asthma discussed and advised to get PFT as an outpatient basis Mild hyponatremia Pre diabetes A1c at 5.8 Abnormal TSH TSH less than 0.015. Free T3-T4 was normal repeat these levels again and came back similar with undetectable TSH but normal T3-T4. I suspect these are related to her biotin use as well as iodine load with CTA. She will need to repeat these levels in few weeks. I have advised to stay off biotin until this test is repeated. Thyroid antibiotics has been ordered which is pending at this time.. 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
[2023-03-10] MEDS: AMOXICILLIN/CLAVULANATE K 875-125 MG TAB 1 TABLET PO (08:30)
[2023-03-10] MEDS: OMEGA 3 POLYUNSAT FATTY ACIDS 1 GM CAP PO (08:30)
[2023-03-10] MEDS: ASPIRIN 81 MG ENTERIC TABLET PO (08:30)
[2023-03-10] MEDS: ATORVASTATIN 10 MG TABLET PO (08:30)
[2023-03-10] MEDS: LOSARTAN POTASSIUM 25 MG TABLET 75 MG PO (08:30)
[2023-03-10] MEDS: DICLOFENAC SOD 75 MG TABLET.EC PO (08:30)
[2023-03-10] MEDS: CALCIUM CARBONATE (OSCAL) 500 MG TABLET PO (08:30)
[2023-03-10] MEDS: CHOLECALCIFEROL 1,000 UNITS TABLET 1000 UNITS PO (08:30)
[2023-03-10] MEDS: PSYLLIUM SUGAR FREE POWDER PACKET 1 PACKET PO (08:31)
[2023-03-10] MEDS: ENOXAPARIN 40 MG/0.4 ML SYRINGE SUB-Q (08:31)
[2023-03-10] MEDS: calcium polycarbophiL 625 MG TABLET 1250 MG PO (08:31)
[2023-03-10] MEDS: cefTRIAXone 2 GM/NS 100 ML 2 GM/100 ML BAG IVPB (08:31)
[2023-03-10] MEDS: ASCORBIC ACID 500 MG TABLET 1000 MG PO (08:31)
[2023-03-10] MEDS: hydroCHLOROthiazide 6.25 MG TABLET PO (08:31)
== END 2023-03-10 12:25 | disposition home or self-care (01) | DRG 690 ==
LOC: ANHED 19:07 → ANH3MEDSUR 03-07 14:57
PROVIDERS: Physician Assistant; Admitting Provider Internal Medicine; Emergency Provider Emergency Medicine; PCP Family Medicine; Visit Provider Hospitalist
DX: N39.0 Urinary tract infection, site not specified (principal); K80.10 Calculus of gallbladder with chronic cholecystitis without obstruction; E78.5 Hyperlipidemia, unspecified; E86.0 Dehydration; I12.9 Hypertensive chronic kidney disease with stage 1 through stage 4 chronic kidney disease, or unspecified chronic kidney disease; K21.9 Gastro-esophageal reflux disease without esophagitis; K59.09 Other constipation; N18.30 Chronic kidney disease, stage 3 unspecified; N81.9 Female genital prolapse, unspecified; R73.03 Prediabetes; R06.02 Shortness of breath; R50.9 Fever, unspecified; Z20.822 Contact with and (suspected) exposure to COVID-19
CPT/HCPCS: 36415; 71046; 71275; 74176; 76705; 80048; 80053; 81001; 82948; 83036; 83605; 83735; 83880; 84145; 84439; 84443; 84445; 84480; 85025; 85380; 86140; 86376; 87040; 87426; 87637; 93005; 94762; 96365; 96367; 96372; 96375; 99285; A9270; C8929; C9803; G0378; J0696; J1650; J1836; J7030; Q9957; Q9967

== ENCOUNTER 2024-01-19 08:01 | Outpatient (CLI) | payer MEDICARE, MEDICAID, SELFPAY ==
--- NOTE | ~2024-01-19 | MM_ITS ---
EXAMINATION: MM screening eryn BI w susana HISTORY: Screening TECHNIQUE: Craniocaudal and mediolateral oblique 3-D tomosynthesis images were obtained and synthetic 2-D images were generated. CAD analysis was submitted and interpreted. COMPARISON: Comparison to multiple prior studies sequentially, with oldest reviewed study dated 08/27. BREAST PARENCHYMAL COMPOSITION: Not dense: There are scattered areas of fibroglandular density. FINDINGS: There is no evidence of suspicious mass, calcification, or architectural distortion to sugg est malignancy in either breast. There has been no suspicious interval change. IMPRESSION: 1. No mammographic evidence of malignancy. 2. Recommend routine screening mammography in one year. BI-RADS Category 1: Negative Reviewed, dictated and finalized at location B.
== END 2024-01-19 08:02 | disposition home or self-care (01) ==
LOC: ANHIMG 08:02
PROVIDERS: PCP Family Medicine; Visit Provider Family Medicine
DX: Z12.31 Encounter for screening mammogram for malignant neoplasm of breast (principal)
CPT/HCPCS: 77063; 77067

== ENCOUNTER 2024-05-22 10:45 | Outpatient (CLI) | payer MEDICARE, MEDICAID, SELFPAY ==
--- NOTE | ~2024-05-22 | US_ITS ---
EXAMINATION: US thyroid DATE: 05/22/2024 11:13 INDICATION: Thyrotoxicosis, unspecified without thyrotoxic crisis. Biopsy of two thyroid nodules was benign on 08/29/13 TECHNIQUE: Multiple ultrasound images of the thyroid were obtained. COMPARISON: Ultrasound 08/29/2013, 08/12/2013 FINDINGS: The right thyroid lobe measures 4.9 x 2.0 x 1.9 cm. The left thyroid lobe measures 4.8 x 2.1 x 2.0 c m. In the right thyroid lobe, there is a 17 mm solid, hypoechoic, wider than tall nodule with lobula r margin without echogenic foci (TI-RADS TR4) that measured 36 mm on 08/12/13 and was cystic and solid at that time. In the right thyroid lobe, there is a 10 mm solid, hypoechoic, wider than tall nodule w ith smooth margin without echogenic foci (TR4). In the left thyroid lobe, there is a 12 mm solid, hyp oechoic, wider than tall nodule with smooth margin and punctate echogenic foci (TI-RADS TR5) that valerio sured 9 mm on 08/12/13. In the left thyroid lobe, there is a 19 mm solid, hypoechoic, wider than tall n odule with ill-defined margin and punctate echogenic foci (TR5) that measured 15 mm on 08/12/13. IMPRESSION: 1. Multinodular goiter. Consider thyroid ultrasound in one year. Reviewed, dictated and finalized at location A. 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
== END 2024-05-22 10:46 | disposition home or self-care (01) ==
LOC: MICIMG 10:48
PROVIDERS: PCP Family Medicine; Visit Provider Nurse Practitioner
DX: E05.90 Thyrotoxicosis, unspecified without thyrotoxic crisis or storm (principal)
CPT/HCPCS: 76536

== ENCOUNTER 2024-08-13 06:53 | Outpatient (CLI) | payer MEDICARE, MEDICAID, SELFPAY | END 2024-08-13 06:54 | disposition home or self-care (01) | LOC: ANHIMG 06:54 | PROVIDERS: PCP Nurse Practitioner; Visit Provider Internal Medicine Endocrinology, Diabetes & Metabolism | DX: E04.2 Nontoxic multinodular goiter (principal); E05.90 Thyrotoxicosis, unspecified without thyrotoxic crisis or storm; M85.80 Other specified disorders of bone density and structure, unspecified site; Z78.0 Asymptomatic menopausal state | CPT/HCPCS: 78014; A9516 ==

== ENCOUNTER 2024-10-05 21:03 | Emergency (ER) | payer MEDICARE, SELFPAY ==
--- OUTSIDE RECORDS SUMMARY | 2024-10-05 21:05 | XMS_ITS | Data Portability ---
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 At her request under sterile conditions I injected the patient's bilateral shoulder joints and the patient's bilateral knee joints in the office today with 4 cc 0.5% bupivacaine and 20 mg of Kenalog each for a total 4 injections. The patient tolerated the procedure well. These typically give her good relief for several months I will see her back in 3 months if necessary she will continue with current conservative measures call for any further problems difficulties or questions she does take diclofenac she voiced understanding agrees with above plan. Not available 07/27/2023 10:23:59 10/20/2023 10/20/2023 The patient has severe primary osteoarthritis of both shoulders and both knees. Under sterile conditions I injected the patient's bilateral shoulder joints and the patient's bilateral knee joints for a total 4 injections with 4 cc 0.5% bupivacaine and 20 mg of Kenalog each. The patient tolerated the procedure well. I will see her back as needed we also gave her a course of oral prednisone to help with the inflammation she states this has helped previously. She voiced understanding agrees above plan she will continue to work on weight loss with a goal of eventually having joint arthroplasties. She will call for any further problems difficulties or questions. Not available 10/20/2023 11:46:46 01/22/2024 01/22/2024 The patient has severe primary osteoarthritis of the glenohumeral joints and bilateral knee joints as described. We talked about treatment options today she wanted proceed with cortisone therefore under sterile conditions I injected the patient's bilateral knee joints and bilateral shoulder joints in the office with 4 cc 0.5% Marcaine and 20 mg of Kenalog each for a total of 4 injections she tolerated the procedures well. We will see her back as needed we can do this again in 3 months if necessary we talked about knee arthroplasty today she is going to think about it she states maybe next year she will consider it she is going to continue to work on weight loss. She was also given a refill of prednisone she voiced understanding agrees above plan she will call for any further problems difficulties or questions. Not available 01/22/2024 09:34:24 04/22/2024 04/22/2024 By previous x-ra y exam the patient is noted to have bilateral knee osteoarthritis severe in nature and bilateral shoulder osteoarthritis severe in nature. We have talked about treatment options multiple times previously she would like to proceed with cortisone therefore under sterile conditions I injected the patient's bilateral shoulder joints and the patient's bilateral knee joints in the office with 4 cc 0.5% bupivacaine and 20 mg of Kenalog each for a total of 4 injections she tolerated the procedures well. We talked about total knee arthroplasty today in detail also we talked about getting her BMI below 40. Once she achieves this she could consider total knee arthroplasty. She voiced understanding agrees above plan she will call for any further problems difficulties or questions. Today's height and weight were 5 ft tall 210 lb her BMI calculates to be 41, in order to get below 40 she has been advised she needs to lose 15 lb. I will see her back in 3 months if necessary for cortisone hopefully at that time she will have achieved enough weight loss to qualify. Not available 04/22/2024 09:18:48 07/25/2024 07/25/2024 The patient has severe primary osteoarthritis of both knees and both glenohumeral joints. We talked about treatment options today in detail she wanted to proceed with cortisone for now therefore under sterile conditions I injected the patient's bilateral knee joints in the patient's bilateral shoulder joints in the office with 4 cc of 0.5% bupivacaine and 20 mg of Kenalog each for a total of 4 injections. The patient tolerated the procedures well. She will continue with diclofenac 75 mg b.i.d. with food she is also going to continue work on her weight loss she is below 40 now on the BMI scale and she wants to continue to work on weight loss and then proceed with total knee arthroplasty this summer. I will see her back as needed she will update us on her next steps. She voiced understanding agreed with the above plan she will call for any further problems difficulties or questions. Not available 07/25/2024 09:44:14 Plan of Treatment Reminders Order Date Submit Date Provider Last Modified By Organization Details Last Modified Time Details Appointments None recorded. Lab None recorded. Referral None recorded. Procedures injection/a spiration joint/bursa (PROC) 2024 025 [email or web address] In-Office Order, Internal Use Only DO Not Attach Compendium DO Not Attach Compendium, Do Not Delete/merge, [id number] 5 09:00:23 injection/a spiration joint/bursa (PROC) 2024 025 [email or web address] In-Office Order, Internal Use Only DO Not Attach Compendium DO Not Attach Compendium, Do Not Delete/merge, [id number] 09:00:23 injection/a spiration joint/bursa (PROC) 2023 024 [email or web address] In-Office Order, Internal Use Only DO Not Attach Compendium DO Not Attach Compendium, Do Not Delete/merge, [id number] 09:02:38 injection/a spiration joint/bursa (PROC) 2023 024 [email or web address] In-Office Order, Internal Use Only DO Not Attach Compendium DO Not Attach Compendium, Do Not Delete/merge, [id number] 09:02:38 injection/a spiration joint/bursa (PROC) - in office procedure, administere d by provider 2023 024 [email or web address] In-Office Order, Internal Use Only DO Not Attach Compendium DO Not Attach Compendium, Do Not Delete/merge, [id number] 08:52:03 injection/a spiration joint/bursa (PROC) - in office procedure, administere d by provider 2023 024 [email or web address] In-Office Order, Internal Use Only DO Not Attach Compendium DO Not Attach Compendium, Do Not Delete/merge, [id number] 4 08:52:03 injection/a spiration joint/bursa (PROC) 2023 024 [email or web address] In-Office Order, Internal Use Only DO Not Attach Compendium DO Not Attach Compendium, Do Not Delete/merge, [id number] 4 11:26:46 injection/a spiration joint/bursa (PROC) 2023 024 In-Office Order, Internal Use Only DO Not Attach Compendium DO Not Attach Compendium, Do Not Delete/merge, [id number] 4 11:26:46 injection/a spiration joint/bursa (PROC) 2023 024 [email or web address] In-Office Order, Internal Use Only DO Not Attach Compendium DO Not Attach Compendium, Do Not Delete/merge, 4 10:06:10 injection/a spiration joint/bursa (PROC) 2023 024 [email or web address] In-Office Order, Internal Use Only DO Not Attach Compendium DO Not Attach Compendium, Do Not Delete/merge, 4 10:04:20 Surgeries None recorded. Imaging XR, knee 2024 025 [facility] [place], [address], [place], [address], 5 09:47:10 XR, shoulder 2024 025 [facility] [place], [address], [place], [address], 5 09:50:26 Medication Orders bupivacaine HCl 0.5 % (5 mg/mL) injection solution 2024 025 [facility] [employer] [facility], [address] [facility], [place], [place], [id number], 5 09:06:36 Kenalog 10 mg/mL suspension for injection 2024 025 [employer]us [employer] Sciencex56 [facility]960[facility], [address] [facility], [place], [place], [id number], 5 09:06:36 bupivacaine HCl 0.5 % (5 mg/mL) injection solution 2024 025 [facility]76[facility], [address] [facility], [place], [place], [id number], 5 09:06:36 Kenalog 10 mg/mL suspension for injection 2024 025 Minetta Brookx56 [facility] #35274, [address] [facility], [place], [place], [id number], 5 09:06:36 bupivacaine HCl 0.5 % (5 mg/mL) injection solution 2023 024 [facility] #84000, [address] [facility], [place], [place], [id number], 4 09:03:21 Kenalog 10 mg/mL suspension for injection 2023 024 [facility] #36403, [address] [facility], [place], [place], [id number], 4 09:03:21 bupivacaine HCl 0.5 % (5 mg/mL) injection solution 2023 024 [facility], [address] [facility], [place], [place], [id number], 4 09:03:21 Kenalog 10 mg/mL suspension for injection 2023 024 [facility]790[facility], [address] [facility], [place], [place], [id number], 4 09:03:21 Marcaine (PF) 0.5 % (5 mg/mL) injection solution 2023 024 [facility] #56772, [address] [facility], [place], [place], [id number], 4 09:34:53 Kenalog 10 mg/mL suspension for injection 2023 024 [facility]3950, [address] [facility], [place], [place], [id number], 4 09:34:53 Marcaine (PF) 0.5 % (5 mg/mL) injection solution 2023 024 [facility] #90960, [address] [facility], [place], [place], [id number], 4 09:34:53 Kenalog 10 mg/mL suspension for injection 2023 024 [facility] #01444, [address] [facility], [place], [place], [id number], 4 09:34:53 prednisone 10 mg tablets in a dose pack 2023 024 [email or web address] [facility], [address] [facility], [place], [place], [id number], 5 09:02:34 bupivacaine HCl 0.5 % (5 mg/mL) injection solution 2023 024 [facility] #04066, [address] [place], [place], [id number], 4 12:58:47 Kenalog 10 mg/mL suspension for injection 2023 024 [facility] #41954, [address] [facility], [place], [place], [id number], 4 12:58:47 bupivacaine HCl 0.5 % (5 mg/mL) injection solution 2023 024 [facility]37018, [address] [facility], [place], [place], [id number], 4 12:58:47 Kenalog 10 mg/mL suspension for injection 2023 024 [email or web address] [facility]79782, [address] [facility], [place], [place], [id number], 4 12:58:47 prednisone 10 mg tablets in a dose pack 2023 024 [email or web address] [facility]90978, [address] [facility], [place], [place], [id number], 5 09:02:34 bupivacaine HCl 0.5 % (5 mg/mL) injection solution 2023 024 [email or web address] [facility]11214, [address] [facility], [place], [place], [id number], 4 11:01:39 Kenalog 10 mg/mL suspension for injection 2023 024 [facility] #77878, [address], [place], [id number], 4 11:01:39 bupivacaine HCl 0.5 % (5 mg/mL) injection solution 2023 024 [facility]19638, [address] [place], [id number], 4 11:01:39 Kenalog 10 mg/mL suspension for injection 2023 024 [facility] #06063, [address] [facility], [place], [place], [id number], 4 11:01:39 Patient TargetsNo targets recorded. Patient InstructionsNo instructions recorded. Reason for Referral None Reported. Results Created Date Observation Date Name Description Value Unit Range Abnormal Flag Note LastModifiedBy Organization Detail LastModifiedTime 07/25/19 25 XR, shoul keven No observ ation record ed. [facility] [place] [address] [address], [place], [address], 07/25/2024 09:50:25 07/25/19 25 XR, knee No observ ation record ed. [facility] [place] [address] [facility] [address] [address], [place], [address], 07/25/2024 09:47:08 Result Notes None recorded. Problems Name Problem SNOMED Code Status Onset Date Resolution Date Notes Provider Name and Address Organization Details Recorded Time Pain of bilateral knee joints 5012672840047 04 Active 2023 LORENA Weber, [place] [facility] 4 08:49:09 Osteoarthr itis of joint of left shoulder region 8119186523324 08 Active 2024 CARLY Navarro [address] [facility] [facility] [address], [place], [address] , [place] [facility] 5 09:51:18 Bilateral shoulder osteoarthr itis 0604438774545 08 Active 2021 Not Available [facility] 3 04:52:56 Disorder of shoulder 116152350 Active Not Available [facility] 3 04:52:56 Bilateral shoulder joint pain 3364519181370 9104 Active 2021 Not Available [facility] 3 04:52:56 Localized, primary osteoarthr itis of the shoulder region Active Not Available [facility] 3 04:52:56 Localized, primary osteoarthr itis of the shoulder region Active 2022 Not Available [facility] 3 04:52:56 Localized, primary osteoarthr itis of the shoulder region Active 2021 Not Available [facility] 3 04:52:56 Osteoarthr itis of knee 994546798 Active Not Available [facility] 3 04:52:56 Knee pain Active Not Available [facility] 3 04:52:57 Osteoarthr itis 280261887 Active Not Available [facility] 3 04:52:57 Problem Notes None recorded. Procedures Surgical History None recorded. Imaging Results Imaging Date Name Status LastModified by Organiz [facility] Details LastModified Time 07/25/2024 XR, shoulder completed [facility] [place] [address], [place], [address], 07/25/2024 09:50:25 07/25/2024 XR, knee completed [facility] [place] [address], [place], [address], 07/25/2024 09:47:08 Procedure Notes None recorded. Medical Equipment None Reported. Allergies Allergen ID Allergen Name Allergen Category Reaction Reaction Severity Criticality Documentation Date Start Date Code Code System Note Provider Name and Address Organization Details Recorded Time 67241 ibuprofen medicatio n Not available Not available Not available 07/25/2024 5640 RxNorm LORENA Weber [place] [facility] 5 09:01:33 Medications Name Sig Start Date Stop Date Status Note LastModified by Organization Details LastModified Time losartan 50 mg tablet active Not Available Not Available Not Available cyclobenz aprine 10 mg tablet 04/17 completed Not Available Not Available Not Available prednison e 10 mg tablet TAKE 1 TABLET BY MOUTH THREE TIMES DAILY FOR 3 DAYS. THEN 1 TABLET TWICE DAILY X2 DAYS. THEN 1 TABLET DAILY X1 DAY 07/25 completed Not Available Not Available Not Available atorvasta tin 10 mg tablet active Not Available Not Available Not Available bisoprolo l 10 mg-hydroc hlorothia zide 6.25 mg tablet 04/27 completed Not Available Not Available Not Available bupivacai ne HCl 0.5 % (5 mg/mL) injection solution Take 40 mg by injectio n route. 2024 active Not Available Not Available Not Avai lable triamcino lone acetonide 0.1 % topical cream APPLY TOPICALL Y TO THE AFFECTED AREA TWICE DAILY 04/27 completed Not Available Not Available Not Available bisoprolo l fumarate 10 mg tablet 04/27 completed Not Available Not Available Not Available ketorolac 0.5 % eye drops 04/17 completed Not Available Not Available Not Available prednison e 10 mg tablets in a dose pack Take 1 tab by mouth, 3 times a day for 3 daysTake 1 tab by mouth 2 times a day for 2 daysTake 1 tab by mouth once a day for 1 day 07/25 completed Not Available Not Available Not Available famotidin e 20 mg tablet TAKE 1 TABLET BY MOUTH ONCE DAILY 04/27 completed Not Available Not Available Not Available prednisol one acetate 1 % eye drops,diana pension 04/17 completed Not Available Not Available Not Available ciproflox acin 0.3 % eye drops 04/18 completed Not Available Not Available Not Available Kenalog 10 mg/mL suspensio n for injection Take 40 mg by injectio n route. 2024 active [facility]: 0003-049 20 Not Available Not Available Not Available diazepam 2 mg tablet 04/17 completed Not Available Not Available Not Available benzonata te 100 mg capsule TAKE 1 CAPSULE BY MOUTH THREE TIMES DAILY NEEDED FOR COUGH 04/27 completed Not Available Not Available Not Available cephalexi n 500 mg capsule TAKE 1 CAPSULE BY MOUTH EVERY 8 HOURS FOR 7 DAYS 04/27 completed Not Available Not Available Not Available clotrimaz ole-betam ethasone 1 %-0.05 % topical cream APPLY TOPICALL Y TO THE AFFECTED AREA TWICE DAILY FOR 4 WEEKS active Not Available Not Available No t Available diclofena c sodium 75 mg tablet,de layed release active Not Available Not Available Not Available irbesarta n 150 mg tablet TAKE 1 TABLET BY MOUTH EVERY DAY active Not Available Not Available No t Available methylpre dnisolone 4 mg tablets in a dose pack FOLLOW PACKAGE DIRECTIO NS 04/27 completed Not Available Not Available Not Available fluticaso ne propionat e 50 mcg/actua tion nasal spray,diana pension 04/18 completed Not Available Not Available Not Available clotrimaz ole 1 % topical cream APPLY TOPICALL Y TO THE AFFECTED AREA EVERY 12 HOURS FOR 8 WEEKS 04/27 completed Not Available Not Available Not Available loratadin e 10 mg tablet TAKE 1 TABLET BY MOUTH ONCE DAILY active Not Available Not Available No t Available amoxicill in 875 mg-potass ium clavulana te 125 mg tablet TAKE 1 TABLET BY MOUTH TWICE DAILY active Not Available Not Available No t Available amoxicill in 500 mg-potass ium clavulana te 125 mg tablet TAKE 1 TABLET BY MOUTH THREE TIMES DAILY 04/27 completed Not Available Not Available Not Available Marcaine (PF) 0.5 % (5 mg/mL) injection solution Take 40 mg by injectio n route. 2023 active Not Available Not Available Not Avai lable nitrofura ntoin monohydra te/macroc rystals 100 mg capsule TAKE 1 CAPSULE BY MOUTH EVERY 12 HOURS FOR 5 DAYS active Not Available Not Available No t Available Euflexxa 10 mg/mL (mw 2.4-3.6 million) intra-art icular syringe Injectio ns given in the office by the doctor 04/27 completed [facility]: [id number] 001 Not Available Not Available Not Available lidocaine (PF) 10 mg/mL (1 %) injection solution In office injectio n administ ered by the provider 01/20 completed [facility]DC: 0409-427 11-26 Not Available Not Available Not Available lidocaine (PF) 5 mg/mL (0.5 %) injection solution Take 120 mg by injectio n route. 01/20 completed Not Available Not Available Not Available hydrochlo rothiazid e 12.5 mg tablet active Not Available Not Available Not Available Prevnar 13 (PF) 0.5 mL intramusc ular syringe 04/17 completed Not Available Not Available Not Available Suprep Bowel Prep Kit 17.5 gram-3.13 gram-1.6 gram oral solution 04/17 completed Not Available Not Available Not Available ropivacai ne (PF) 5 mg/mL (0.5 %) injection solution Take 40 mg by injectio n route. 04/27 completed [facility] 77843-53 09-10 Not Available Not Available Not Available Fluarix Quad 3606-6299 (PF) 60 mcg (15 mcg x 4)/0.5 mL IM syringe 04/17 completed Not Available Not Available Not Available Paxlovid 300 mg (150 mg x 2)-100 mg tablets in a dose pack TK 2 NIRMATRE LVIR TS AND 1 RITONAVI R T TOGETHER PO BID FOR 5 DAYS BID FOR 5 DAYS 04/27 completed Not Available Not Available Not Available Vitals Date Recorded Body height Body mass index (BMI) Body weight Provider Name and Address Organization Details Last Updated DateTime 07/27/2023 157.48 cm 43 kg/m2 672655.21 g Brittny Mustafaalton [employer] 07/27/2023 10:01:39 Date Recorded Body height Body mass index (BMI) Body weight Provider Name and Address Organization Details Last Updated DateTime 10/20/2023 157.48 cm 42.1 kg/m2 966796.25 g Daisy Ivey Danyelle [employer] 10/20/2023 11:22:27 Date Recorded Body height Body mass index (BMI) Body weight Provider Name and Address Organization Details Last Updated DateTime 01/22/2024 157.48 cm 41.2 kg/m2 278618.28 g Brittny Henry, [employer] 01/22/2024 08:48:30 Date Recorded Body height Body mass index (BMI) Body weight Provider Name and Address Organization Details Last Updated DateTime 04/22/2024 152.4 cm 41 kg/m2 28557.4 g Brittny Henry, [employer] 04/22/2024 09:17:10 Date Recorded Body height Body mass index (BMI) Body weight Provider Name and Address Organization Details Last Updated DateTime 07/25/2024 152.4 cm 37.5 kg/m2 02569.74 g LORENA Weber [place] [facility] 07/25/2024 09:31:28 Social History Question Answer Notes LastModified by Organizat ion Details LastModified Time Tobacco Smoking Status Never 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 None [id number] Information not available 08/10/2022 What Was The Date Of Your Most Recent Tobacco Screening? 01/20/2022 [id number] Information not available 08/10/2022 Sex: Unknown Functional Status None recorded. Mental Status None recorded. Family History Relationship Description Onset Age of this Age Resolved Age Notes LastModified by Organization Details LastModified Time Father Hypertensive disorder [email or web address] Not available 2022 09:20:25 Mother Family history of malignant neoplasm [id number] Not available 08/10/2022 04:42:51 Father Diabetes mellitus [id number] Not available 08/10/2022 04:42:51 Medical History Condition Response ARTHRITIS Y SKIN PROBLEMS Y Gynecological HistoryNo gynecological history recorded. Obstetrics History GPAL:G 0 P 0 0 0 0 Past Encounters Encounter ID Performer Location Encounter Start Date Encounter Closed Date Diagnosis/Indication Diagnosis SNOMED-CT Code Diagnosis ICD10 Code Diagnosis Note [id number] [facility] [place] [address] [place] [address] 10/29/2020 00:00:00 10/29/2020 11:05:18 [id number] [facility] [place] [address] [place] [address] 12/08/2020 00:00:00 12/08/2020 15:29:19 [id number] [facility] [place] [address] [place] [address] 12/15/2020 00:00:00 12/15/2020 15:45:39 [id number] [facility] [place] [address] [place] [address] 12/22/2020 00:00:00 12/22/2020 14:48:01 [id number] [facility] [place] [address] [place] [address] 01/29/2021 00:00:00 01/29/2021 15:10:39 [id number] [facility] [place] [address] [place] [address] 04/29/2021 00:00:00 04/29/2021 14:22:08 [id number] [facility] [place] [address] [place] [address] 07/29/2021 00:00:00 07/29/2021 14:30:17 [id number] [facility] [place] [address] [place] [address] 10/21/2021 00:00:00 10/21/2021 10:44:25 [id number] [facility] [place] [address] [place] [address] 01/20/2022 00:00:00 01/20/2022 12:00:40 [id number] [facility] [place] [address] [place] [address] 04/25/2022 00:00:00 04/25/2022 11:06:51 [id number] [facility] [place] [address] [place] [address] 07/25/2022 00:00:00 07/25/2022 10:57:19 [id number] CARLY Navarro [facility] [place] [address] [place] [address] 10/24/2022 09:50:04 10/24/2022 10:42:57 Osteoarthritis 849532328 M17.0 Bilateral shoulder osteoarthritis 0973470662 19542 M19.011 Localized, primary osteoarthritis of the shoulder region 226331871 M19.012 [id number] CARLY Navarro [facility] [place] [address] [place] [address] 01/23/2023 10:57:41 01/23/2023 11:21:52 Osteoarthritis 106162888 M17.0 Bilateral shoulder osteoarthritis 9899397317 37532 M19.011 Localized, primary osteoarthritis of the shoulder region 055052123 M19.473 [id number] CARLY Navarro [facility] [address] [place] [address] 04/27/2023 09:06:57 04/27/2023 10:11:57 Bilateral shoulder osteoarthritis [id number] M19.011 Localized, primary osteoarthritis of the shoulder region [id number] M19.012 Osteoarthritis [id number] M17.0 [id number] CARLY Navarro [facility] [address] [place] [address] 07/27/2023 09:56:05 07/27/2023 10:49:12 Bilateral shoulder osteoarthritis [id number] 98145 M19.011 Localized, primary osteoarthritis of the shoulder region 871174539 M19.012 Osteoarthr itis of knee 021889569 M17.0 [id number] CARLY Navarro [facility] [address] [place] [address] 10/20/2023 11:19:29 10/20/2023 11:45:16 Bilateral shoulder osteoarthritis [id number] 12975 M19.011 Localized, primary osteoarthritis of the shoulder region 804320928 M19.012 Osteoarthr itis of knee 585379744 M17.0 [id number] CARLY Navarro [facility] [address] [place] [address] 01/22/2024 08:46:03 01/22/2024 09:13:47 Bilateral shoulder osteoarthritis [id number] 91954 M19.011 Bilateral shoulder joint pain [id number] 6915784 M25.511 M25.512 Osteoarthr itis of knee 422465745 M17.0 Pain of bi lateral knee joints 1027928760 01380 M25.561 M25.690 [id number] CARLY Navarro [facility] [address] [place] [address] 04/22/2024 08:43:20 04/22/2024 09:20:08 Bilateral shoulder osteoarthritis [id number] 19572 M19.011 Bilateral shoulder joint pain [id number] 5363222 M25.511 M25.512 Pain of bi lateral knee joints 7268803453 83941 M25.561 M25.562 Osteoarthr itis of knee 600282724 M17.0 [id number] CARLY Navarro [facility] [address] [place] [address] 07/25/2024 08:45:44 07/25/2024 09:35:22 Bilateral shoulder osteoarthritis [id number] 38760 M19.011 Bilateral shoulder joint pain 5846050041 3812462 M25.511 M25.512 Pain of bi lateral knee joints 6625502027 14754 M25.561 M25.562 Osteoarthr itis of knee 188695395 M17.0 Osteoarthr itis of joint of left shoulder region 2164932453 05196 M19.012 Health Concerns Section Related Observation LastModified by Organization Detai ls LastModified Time None Recorded Concern Status LastModified by Organization Details LastModified Time None Recorded Advance Directives Directive None Recorded Payers Encounter Date Sequence Insurance Name Policy Number Policy Lyn Covered Member ID Lyn Member ID Guarantor Name 07/27/[address] [facility] - [employer] - [employer] - MEDICARE COMPLETE PLAN 2 (MEDICARE REPLACEMENT HMO) [id number] Korina Cavazos [id number] Korina Coppotzoey 07/27/2023 2 [place] Korina Copesperanza [id number] Korina Coppotelli 10/20/[address] [facility] - [employer] - [employer]URE [place] - MEDICARE COMPLETE PLAN 2 (MEDICARE REPLACEMENT HMO) [id number] Korina Cavazos [id number] Korina Coppotzoey 10/20/2023 2 [place] Korina Cavazos [id number] Korina Coppotzoey 01/22/[address] [facility] - [employer]ARP - [employer]URE [place] - MEDICARE COMPLETE PLAN 2 (MEDICARE REPLACEMENT HMO) [id number] Korina Bassett Coppotelli [id number] Korina Coppotelli 01/22/2024 2 [place] [facility] Korina Cavazos [id number] Korina Pottspotzoey 04/22/2024 1 [facility] - SECURE [place] - MEDICARE COMPLETE PLAN 2 (MEDICARE REPLACEMENT HMO) [id number] Korina Bassett Coppotelli [id number] Korina Coppotzoey 04/22/2024 2 [place] [facility] Korina Cavazos [id number] Korina Coppotzoey 07/25/2024 1 [facility] - MEDICARE COMPLETE PLAN 2 (MEDICARE REPLACEMENT HMO) [id number] Korina Bassett Coppotelli [id number] Korina Coppotzoey 07/25/2024 2 [place] [facility] Korina Cavazos [id number] Korina Cavazos Notes Date Note Type Note Provider Name and Address Organization Details Recorded Time 07/27/2023 text/html Patient returns complaining of bilateral shoulder pain and bilateral knee pain. She has severe primary osteoarthritis of all 4 joints. She has myxm-or-zlue glenohumeral osteoarthritis with flattening of the humeral heads and hypertrophic changes off the inferior margins of the humeral heads left slightly worse than right. Bilateral knees also show a severe advanced primary osteoarthritis with bony erosion of the medial tibial plateau bilaterally and moderate varus deformities and subchondral sclerosis. There is some small hypertrophic spurring noted as well in the patellofemoral articulation shows severely narrowed irregularity with in the joint spaces hypertrophic spurring is also noted off the anterior and posterior femur on the lateral previous x-rays. The patient is adverse to any sort of surgical intervention she has a great fear of it her BMI is a little too high for arthroplasty at some point she may need to consider weight loss for surgery so she can get around a little better. For the most part she does well with cortisone she would like to repeat cortisone injections all 4 sites. Denies any new symptoms no new trauma or injury. CARLY Navarro [address], [facility] [address], [place], [address], [facility] - [employer] 07/27/2023 10:24:12 10/20/2023 text/html Patient returns requesting injections both knees both shoulders. She has severe primary osteoarthritis of all 4 joints. She has rmvp-rm-dzod glenohumeral osteoarthritis with flattening of the humeral heads and hypertrophic changes off the inferior margins of the humeral heads left slightly worse than right. She also has bilateral knee severe advanced primary osteoarthritis with bony erosion of the medial tibial plateaus bilaterally and varus deformities with subchondral sclerosis. She has small hypertrophic spurring noted as well in the patellofemoral articulations which are severely narrowed with irregularity the joint spaces. The patient is not a good candidate for surgical intervention at this time because her BMI is too high she is working on weight loss to consider knee arthroplasty somewhere down the road. She would need for total joints eventually for good long-term relief. Denies any new symptoms no new trauma or injury. CARLY Navarro [address], [place], [address], [employer] 10/20/2023 11:47:20 01/22/2024 text/html The patient retu rns requesting bilateral knee and bilateral shoulder injections. 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 She is getting to the point where she is considering total knee arthroplasty but still wants to put it off for about a year. She is working on weight loss she is 5 ft 2 in tall 230 lb BMI is 42.1 she knows she has to lose some weight before we can consider total knee arthroplasty or shoulder replacement. She denies any new problems today comes in today with aches and pains in both shoulders and both knees has a hard time standing or walking for long periods she can not do anything too heavy repetitive with either arm. The shots do give her good relief for short periods she would like to repeat those again today. She does take diclofenac 75 mg b.i.d. with food. CARLY Navarro [address], [address], [place], [address], [employer] 01/22/2024 09:34:35 04/22/2024 text/html The patient retu rns with bilateral shoulder and bilateral knee pain she has severe primary osteoarthritis of the glenohumeral joints and bilateral knee joints. She comes in every 3 months for cortisone injections they worked well for her but really do not last the full 3 months. She is getting to the point where she is considering total knee arthroplasty she asked lot of questions today about that I have advised her she has to have a BMI below 40. Currently she is 41.2 according to her previous height and weight we will get a new height and weight today. We are going to give her the number she needs to get to 2 achieve a BMI below 40 so she can qualify for the surgery. In the meantime she has varus deformities both knees with tenderness on the medial joint lines no effusion or swelling no new trauma or injury both shoulders also show qkwp-uh-pxas glenohumeral osteoarthritis. She does take diclofenac 75 mg b.i.d. with food she would like to have both knees and both shoulders injected again today. CARLY Navarro [address] [facility], [facility] [address], [place], [address], [place] [employer] [facility] 04/22/2024 09:19:01 07/25/2024 text/html The patient retu rns requesting repeat cortisone injections both knees and both shoulders. She has severe jims-xs-qoyq primary osteoarthritis with varus deformities both knees and severe glenohumeral osteoarthritis with erosive changes of the humeral heads left worse than right. The patient denies any new problems with her shoulders or her knee she comes in every 3 months for cortisone. She has been working on weight loss and has made good progress. She is now down to 192 lb she was measured at 5 ft tall today. This puts her BMI at 37.5 she is now under 40. She wants to give it a few more months to continue to work on the weight loss then would like to proceed with total knee arthroplasty at the beginning of the summer. She states her primary physician has told her she is cleared for surgery and now she is trying to buy some time until summer so she can proceed. We are getting new x-rays today as it has been more than a year since her last x-rays of both shoulders and both knees. As far as her shoulders go she has no new changes here she has a lot of aching pain and limitation of motion she is going to do her knees before she worries about her shoulders. New past medical history sheet was reviewed and signed on the intake sheet of today's date drug allergies current medications family social history previous surgical history 10 point review of systems was reviewed and discussed in detail today with the patient. She is currently taking diclofenac 75 twice a day for her arthritis pain. CARLY Navarro [address], [facility] [address], [place], [address], [place] [facility] [place] [facility] 07/25/2024 09:51:58 OBGyn Episode No OBEpisode recorded.
--- OUTSIDE RECORDS SUMMARY | 2024-10-05 21:05 | XMS_ITS | Clinical Summary ---
Author Organization [facility] Address [address] [place] [address] Care Team Providers Care Podiatrist Name Role Phone Unavailable Primary Care Provider Unavailabl e Social History Tobacco Use Types Packs/Day Years Used Date Smoking Tobacco: Never Assessed Comments Unknown Sex and Gender Information Value Date Recorded Sex Assigned at Not on file Legal Sex Female 12:09 PM CDT Gender Identity Not on file Sexual Orientation Not on file Plan of Treatment Health Maintenance Due Date Last Done Comments DEXA Bone Density 1945 Hepatitis C Virus (HCV) Screening 1945 TdaP Immunization 1945 Zoster Immunization (1 of 2) 1997 Pneumococcal Immunization (50+ years) (2 of 2 - PPSV23) 03/25/2016 03/25/2015 Respiratory Syncytial Virus (RSV) Immunization (Adult) (1 - 1-dose 75+ series) 2022 Influenza Immunization (#1) 02/11/202411/2019, 05/06/2019, 04/23/2018, Additional history exists SARS-COV-2 Immunization () 02/11/2024 Pneumococcal Immunization Combined Discontinued 03/25/2015 Hepatitis B Immunization Aged Out No longer eligible based on patient's age to complete this topic Meningococcal Immunization (ACWY) Aged Out No longer eligible based on patient's age to complete this topic Rotavirus Immunization Aged Out No lo nger eligible based on patient's age to complete this topic
[2024-10-05 21:22] VITALS: PULSE 118; RESP 16; TEMP 37.9; O2SAT 99
--- NOTE | 2024-10-06 00:34 | PC.NURSE ---
Patients family comes to desk and states we are leaving, were going home. Patients and her family informed of risks of leaving and benefits of staying for evaluation. Patient and her family verbalized understanding. patient was wheeled out of the ED by her family members. Patient had belongings in hand. Patient marked as left without being seen triaged.
--- OUTSIDE RECORDS SUMMARY | 2024-10-06 00:42 | XMS_ITS | Clinical Summary ---
Author Organization [facility] Address [address] [place] [address] Care Team Providers Care Plant Taxonomist Name Role Phone Unavailable Primary Care Provider [...]
== END 2024-10-06 00:41 | disposition left against medical advice (07) ==
LOC: ANHED 10-06 00:40
PROVIDERS: PCP Family Medicine
DX: R25.1 Tremor, unspecified (principal)
CPT/HCPCS: 99199

== ENCOUNTER 2024-10-06 10:09 | Emergency (ER) | payer MEDICARE, SELFPAY ==
[2024-10-06 10:20] VITALS: BP 146/64; PULSE 116; RESP 19; TEMP 37.4; O2SAT 97
[2024-10-06 10:43] LABS: EDUAAPPEAR Cloudy; EDUABILI Negative (Negative); EDUABLOOD 1+ (Negative); EDUACOLOR1 Yellow; EDUAGLUCOSE Negative (Negative); EDUAKETONE Negative (Negative); EDUALEUKO 1+ (Negative); EDUANITRATE Positive (Negative); EDUAPROTEIN 1+ (Negative); EDUAUROBILI 0.2
--- NOTE | 2024-10-06 10:46 | ED_ITS ---
HPI - Female Genitourinary General Chief complaint: Urogenital-Female Stated complaint: Chills,Fever/UTI Time Seen by Provider: 10/06/24 10:25 Source: patient, family, RN notes reviewed and old records reviewed Mode of arrival: ambulatory Limitations: no limitations History of Present Illness HPI Narrative: 79 year old female accompanied by daughter with complaints of patient starting to have fevers,and chills which started yesterday and some burning with urination. Patient reports history of past urinary tract infections and has had to be hospitalized in past because of UTI. Patient reports that he has a con stant right hip flank pain but does not wrap around to abdomen. Patient reports no discharge or any blood noted in urine or vaginally. Patient recently stopped her Diclofenac for planned knee surgery in November. Patient reports that she has taken some Tylenol. MD elicited complaint: UTI Pertinent past history: other (past UTI) Onset (ago): day(s) (day 2 of symptoms) Location of symptoms: urethra and flank (right) Severity scale (1-10): 5 Vaginal discharge: none Vaginal bleeding: none Urinary symptoms: Dysuria, Urgency and Frequency Treatment prior to arrival: acetaminophen Related Data Home Medications ?Medication ?Instructions ?Recorded ?Confirmed ?Last Taken ?Type glucosamine 500 mg-chondroit 400 1 cap PO DAILY 05/06/19 09/10/24 03/05/23 08:00 History mg-vit C 2 mg-kateryna 0.33 mg capsule ascorbic acid (vitamin C) 1,000 mg 1 g PO DAILY 09/02/20 09/10/24 03/05/23 08:00 History tablet omega 6-ruy-xjk-fish oil 1,200 mg 1 cap PO BID 09/02/20 09/10/24 03/04/23 08:00 History (144 mg-216 mg) capsule (Fish Oil) calcium polycarbophil 625 mg tablet 1,250 mg PO DAILY 02/20/23 09/10/24 03/05/23 08:00 History cholecalciferol (vitamin D3) 50 50 mcg PO DAILY 02/20/23 09/10/24 03/05/23 08:00 History mcg (2,000 unit) capsule psyllium husk 0.4 gram capsule 0.4 g PO BID 03/06/23 09/10/24 Unknown History (Metamucil) calcium carb-ergocalciferol (vit tablet PO 10/06/24 Unknown History D2) 600 mg calcium-200 unit tablet magnesium oxide 400 mg PO DAILY 10/06/24 Unknown History mecobalamin (vitamin B12) PO 10/06/24 Unknown History Allergies Allergy/AdvReac Type Severity Reaction Status Date / Time ibuprofen AdvReac Mild Skin Verified 10/05/24 21:04 Reaction lisinopril AdvReac Mild cough Verified 10/05/24 21:04 Review of Systems Review of Systems: CONSTITUTIONAL: Reports fever, chills, or sweats. CARDIOVASCULAR: Denies chest pain, palpitations, or edema. RESPIRATORY: Denies cough or dyspnea. GASTROINTESTINAL: Denies abdominal pain, nausea, vomiting, or diarrhea. GENITOURINARY: Reports dysuria, frequency, urgency. right flank pain no hematuria. SKIN: Denies rash or itching. MUSCULOSKELETAL: Denies back pain or myalgia. Denies CVA tenderness NEUROLOGIC: Denies headache All systems reviewed & are unremarkable except as noted in HPI and below PMFSH Past Medical History Medical History Encounter for Pap cervical smear following prior abnormal smear Chronic kidney disease, stage 3 Arthritis Gastroesophageal reflux disease Hyperlipidemia Hypertension Prediabetes Surgical History Surgical History History of section Family History Family History Mother Diabetes mellitus Family history of cardiovascular disease Family history of genetic disorder Family history of coronary artery disease Father Hypertension Social History Social History Social History: Surrogate medical decision maker: Lucero Maldonado, daughter. Code status: Full code. Smoking status: Never smoker Second hand tobacco smoke exposure: No Alcohol intake: never Substance use: never Do You Feel Safe in your Home?: Yes Lack of Transportation: No Lack of Food: Never True Current Housing: I Have Housing Concerned About Future Housing: No Difficulty Paying Gas/Electric Bills: No Difficulty Paying for Meds: No Currently Unemployed: No Education: High School Diploma/GED Difficulty w/ Childcare or Family Care: No Spiritual care concerns: No Comments At time of signature, agree with nursing past medical, surgical, social and family history. There is no relevant family history pertinent to the presenting complaint Exam Narrative: GENERAL: Well-appearing, well-nourished, and in no acute distress. HEAD: Normocephalic, atraumatic. NECK: Supple. no lymphadenopathy CHEST: Clear to auscultation. No respiratory distress.SAO2 97% on room air HEART: Regular rate and rhythm. No murmur heard. Normal peripheral pulses. ABDOMEN: Soft, nontender, nondistended, normal active bowel sounds. right CVA tenderness, burning, frequency and urgency with urination EXTREMITIES: Normal range of motion. No edema. chronic right knee pain to have knee surgery in November. SKIN: Warm, dry, no rash. NEURO: No focal deficits. Alert and oriented x3. Course Course Emergency Course: Patient is aware of diagnosis, understands and agrees to treatment plan.? Anticipatory guidance given.? Patient agrees to follow-up as directed and is aware of reasons to seek care at the emergency department. Portions of this record may have been created with voice recognition software Level of Care: Express Care Visit Vital Signs Vital signs: Vital Signs Temperature 37.4 C 10/06/24 10:20 Pulse Rate 116 H 10/06/24 10:20 Respiratory Rate 19 10/06/24 10:20 Blood Pressure 146/64 H 10/06/24 10:20 Pulse Oximetry 97 10/06/24 10:20 Oxygen Delivery Room Air 10/06/24 10:20 Temperature 37.4 C 10/06/24 10:20 Pulse Rate 116 H 10/06/24 10:20 Respiratory Rate 19 10/06/24 10:20 Blood Pressure 146/64 H 10/06/24 10:20 Pulse Oximetry 97 10/06/24 10:20 Oxygen Delivery Room Air 10/06/24 10:20 MDM - Female Genitourinary MDM Narrative Medical decision making narrative: Exam findings and UA show no acute concerns or changes; patient is non-toxic appearing and is in no distress.? Patient is appropriate for outpatient treatment and follow-up. Differential Diagnosis Differential diagnosis: Likely urinary tract infection, cystitis and other (dysuria) Medical Records Attestation: I reviewed the patient's medical records. Lab Data Attestation: I reviewed the patient's lab results. Lab results narrative: urine dip reviewed: positive nitrite, blood and leukocytes yellow and cloudy Labs: Lab Results 10/06/24 Range/Units 10:41 POC Urine Color Yellow POC Urine Clarity Cloudy POC Urine pH 6.0 POC Ur Specif [place] 1.010 POC Urine Protein 1+ (Negative) POC Ur Glucose (UA) Negative (Negative) POC Urine Ketones Negative (Negative) POC Urine Blood 1+ (Negative) POC Urine Nitrite Positive (Negative) POC Urine Bilirubin Negative (Negative) POC Urine Urobilinogen 0.2 POC U Leukocyte Esteras 1+ (Negative) Critical Care Time Critical Care Time Critical Care Time: No Discharge Plan Discharge Clinical Impression: Urinary tract infection Qualifiers: Urinary tract infection type: site unspecified Hematuria presence: with hematuria Qualified Code(s): N39.0 - Urinary tract infection, site not specified Patient Disposition: Home Condition: Stable Instructions: Antibiotic Form, Urinary Tract Infection in Women (ED) Additional Instructions: Increase fluids especially cranberry juice and water Avoid caffeine and carbonated beverages Antibiotic as directed Tylenol for pain or fever Follow-up with her primary care provider if further problems or concerns Recheck if you have fever over 101, nausea and vomiting. Monitor for fevers If your symptoms persist, change or worsen significantly before you can contact your personal physician then please, without delay, go to the emergency department for further evaluation. Follow-up with PCP in 7-10 days or sooner if needed Follow up with PCP soon in regards to your blood pressure which is elevated above threshold for referral. Blood pressure above 120/80 may indicate pre- hypertension. 146/64 Patient Language: St Helen[place] Prescriptions: New amoxicillin-pot clavulanate 875-125 mg tablet 1 tablet PO Q12H Qty: 20 0RF Rx Instructions: take all doses of medication recommend taking Probiotic or eating Activia yogurt while taking this medication No Action mecobalamin (vitamin B12) PO calcium carbonate-vitamin D2 600 mg calcium- 200 unit tablet PO magnesium oxide 400 mg magnesium capsule 400 mg PO DAILY cholecalciferol (vitamin D3) 50 mcg (2,000 unit) capsule 50 mcg PO DAILY calcium polycarbophil 625 mg tablet 1,250 mg PO DAILY ghpyehyn-joswitafj-G-manganese 500-400-2-0.33 mg capsule 1 cap PO DAILY omega 7-xne-jko-fish oil [Fish Oil] 1,200 (144-216) mg capsule 1 cap PO BID ascorbic acid (vitamin C) 1,000 mg tablet 1 g PO DAILY psyllium husk [Metamucil] 0.4 gram Capsule 0.4 g PO BID diclofenac sodium 75 mg tablet,delayed release (DR/EC) See Rx Instructions .ROUTE .COMPLEX Qty: 200 1RF Dose Instruction: TAKE 1 TABLET BY MOUTH TWICE DAILY Rx Instructions: TAKE 1 TABLET BY MOUTH TWICE DAILY atorvastatin 10 mg tablet See Rx Instructions .ROUTE .COMPLEX Qty: 100 1RF Dose Instruction: TAKE 1 TABLET BY MOUTH DAILY Rx Instructions: TAKE 1 TABLET BY MOUTH DAILY hydrochlorothiazide 12.5 mg tablet See Rx Instructions .ROUTE .COMPLEX Qty: 50 1RF Dose Instruction: TAKE ONE-HALF TABLET BY MOUTH DAILY Rx Instructions: TAKE ONE-HALF TABLET BY MOUTH DAILY losartan 50 mg tablet See Rx Instructions .ROUTE .COMPLEX Qty: 100 1RF Dose Instruction: TAKE 1 TABLET BY MOUTH DAILY Rx Instructions: TAKE 1 TABLET BY MOUTH DAILY Follow-up/Referrals: Lucero Frederick DO [Primary Care Provider] - Time of Disposition: 11:37 Quality [place] Coma Scale Eyes: Open Verbal: Oriented and Alert Motor: Follows Commands [place] Coma Total Score: 15
== END 2024-10-06 11:26 | disposition home or self-care (01) ==
PROVIDERS: Emergency Provider Registered Nurse; PCP Family Medicine
DX: N39.0 Urinary tract infection, site not specified (principal); I12.9 Hypertensive chronic kidney disease with stage 1 through stage 4 chronic kidney disease, or unspecified chronic kidney disease; N18.30 Chronic kidney disease, stage 3 unspecified; R73.03 Prediabetes; E78.5 Hyperlipidemia, unspecified; M19.90 Unspecified osteoarthritis, unspecified site; K21.9 Gastro-esophageal reflux disease without esophagitis
CPT/HCPCS: 81003; 87086; 87186; 99213; G0463

== ENCOUNTER 2024-10-22 09:56 | Outpatient (CLI) | payer MEDICARE, SELFPAY ==
--- OUTSIDE RECORDS SUMMARY | 2024-10-22 10:17 | XMS_ITS | Clinical Summary ---
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
--- NOTE | 2024-10-22 11:37 | ECG_ITS ---
Test Date: 2024-10-22 11:55:48 Measurements Intervals [place] Rate: 69 P: 60 [place]: 170 QRS: -20 QRSD: 113 T: 7 QT: 375 QTc: 402 Interpretive Statements SINUS RHYTHM WITH FREQUENT VENTRICULAR PREMATURE COMPLEXES POSSIBLE ANTERIOR MYOCARDIAL INFARCTION [30 ms Q WAVE IN V3/V4, OR R < 0.2 mV IN V4], OF INDETERMINATE AGE No previous ECG available for comparison Electronically Signed On 10-22-2024 15:04:13 CDT by Jett Goldman M.D.
[2024-10-22 12:09] LABS: Basophils Absolute Auto 0.1 K/mm3 (0.0-0.1); Basophils Percent Auto 0.7 % (0.2-1.2); Eosinophils Absolute Auto 0.1 K/mm3 (0-0.3); Eosinophils Percent Auto 0.8 % (0-4.4); Hematocrit 38.8 % (37.0-47.0); Hemoglobin 12.1 g/dL (12.0-15.0); Immature Granulocyte Absolute 0.02 K/mm3 (0.00-0.031); Immature Granulocyte Percent A 0.3 % (0-0.5); Lymphocytes Absolute Auto 1.83 K/mm3 (0.9-3.2); Lymphocytes Percent Auto 24.3 % (18.3-44.2); Mean Corpuscular HGB Conc 31.2 g/dl (32-36); Mean Corpuscular Volume 96.3 fl (80-100); Mean Platelet Volume 9.4 fl (7.4-10.4); Monocytes Absolute Auto 0.4 K/mm3 (0.1-0.6); Monocytes Percent Auto 5.2 % (2.6-8.5); Neutrophils Absolute Auto 5.2 K/mm3 (1.3-6.7); Neutrophils Percent Auto 68.7 % (45.5-73.1); Platelet Count Result 281 k/mm3 (150-375); Red Blood Count 4.03 M/mm3 (4.2-5.4); Red Cell Distribution Width 12.9 % (11.5-14.5); White Blood Count 7.5 K/mm3 (4.5-10.0)
[2024-10-22 12:19] LABS: Urine Cotinine NEGATIVE
[2024-10-22 12:22] LABS: Albumin Level 4.4 g/dL (3.5-5.1); Anion Gap 10 mmol/L (4-12); Blood Urea Nitrogen 17 mg/dL (7-17); Calcium 10.6 mg/dL (8.4-10.2); Carbon Dioxide 26 mmol/L (22-30); Chloride 105 mmol/L (98-107); Estimated Glomerular Filt Rate 54; Glucose 117 mg/dL (65-110); Potassium 4.2 mmol/L (3.4-5.0); Prothrombin Time 13.6 Seconds (11.1-14.7); Sodium 141 mmol/L (137-145)
[2024-10-22 12:23] LABS: Partial Thromboplastin Time 26.6 Seconds (22.3-36.8)
== END 2024-10-22 09:57 | disposition home or self-care (01) ==
LOC: ANHSURGERY 10:03
PROVIDERS: Anesthesiology; PCP Nurse Practitioner; Visit Provider Orthopaedic Surgery
DX: Z01.818 Encounter for other preprocedural examination (principal); M17.0 Bilateral primary osteoarthritis of knee; N18.30 Chronic kidney disease, stage 3 unspecified; R94.31 Abnormal electrocardiogram [ECG] [EKG]
CPT/HCPCS: 36415; 80048; 80307; 82040; 85025; 85610; 85730; 87081; 93005

== ENCOUNTER 2024-11-08 07:53 | Outpatient (CLI) | payer MEDICARE, SELFPAY ==
--- NOTE | ~2024-11-08 | NM_ITS ---
EXAMINATION: NM fern stress w perfusion DATE: 11/08/2024 10:05 INDICATION: Encounter for preprocedural cardiovascular exam TECHNIQUE: Rest images were obtained following intravenous administration of 11.2 mCi Tc99m tetrofosm in (Myoview). The patient was infused intravenously with Lexiscan (Regadenoson). Then, 35 mCi Tc99m t etrofosmin (Myoview) was administered intravenously, and stress images were obtained. Data was recons tructed into short axis and horizontal and vertical long axis SPECT images. Gated SPECT images were a lso obtained. COMPARISON: None. FINDINGS: There is no definite reversible or fixed perfusion abnormality to suggest ischemia or infar ction. There is normal left ventricular chamber size, wall motion and ejection fraction. Left ventr icular ejection fraction measures 64%. IMPRESSION: 1. Normal myocardial perfusion at rest and during stress. 2. Left ventricular ejection fraction measuring 64%. Reviewed, dictated and finalized at location A.
--- OUTSIDE RECORDS SUMMARY | 2024-11-08 07:57 | XMS_ITS | Data Portability ---
Author Organization [place] [facility], Main Office Address [address] [place] [address] Care Team Providers Care Anode Machine Operator Name Role Phone EVELYNE LEAVITT Primary Care Provider [phone] EVELYNE LEAVITT Referring Provider [phone] Assessment Encounter Date Assessment Date Assessment LastModified [...] DO Not Attach Compendium, Do Not Delete/merge, [id number] 09:00:23 injection/a spiration joint/bursa (PROC) 2024 025 [email or web address] In-Office Order, Internal Use Only DO Not Attach Compendium DO Not Attach Compendium, Do Not Delete/merge, [id number] 5 09:00:23 injection/a spiration joint/bursa (PROC) 2023 024 [email or web address] In-Office Order, Internal Use Only DO Not Attach Compendium DO Not Attach Compendium, Do Not Delete/merge, [id number] 09:02:38 injection/a spiration joint/bursa (PROC) 2023 024 [email or web address] In-Office Order, Internal Use Only DO Not Attach Compendium DO Not Attach Compendium, Do Not Delete/merge, [id number] 4 09:02:38 injection/a spiration joint/bursa (PROC) - in office procedure, administere d by provider 2023 024 [email or web address] In-Office Order, Internal Use Only DO Not Attach Compendium DO Not Attach Compendium, Do Not Delete/merge, [id number] 4 08:52:03 injection/a spiration joint/bursa (PROC) - in office procedure, administere d by provider 2023 024 [email or web address] In-Office Order, Internal Use Only DO Not Attach Compendium DO Not Attach Compendium, Do Not Delete/merge, [id number] 4 08:52:03 injection/a spiration joint/bursa (PROC) 2023 024 In-Office Order, Internal Use Only DO Not Attach Compendium DO Not Attach Compendium, Do Not Delete/merge, [id number] 4 11:26:46 injection/a spiration joint/bursa (PROC) 2023 024 In-Office Order, Internal Use Only DO Not Attach Compendium DO Not Attach Compendium, Do Not Delete/merge, [id number] 4 11:26:46 injection/a spiration joint/bursa (PROC) 2023 024 [email or web address] In-Office Order, Internal Use Only DO Not Attach Compendium DO Not Attach Compendium, Do Not Delete/merge, 4 10:06:10 injection/a spiration joint/bursa (PROC) 2023 024 [email or web address] In-Office Order, Internal Use Only DO Not Attach Compendium DO Not Attach Compendium, Do Not Delete/merge, 4 10:04:20 Surgeries None recorded. Imaging XR, knee 2024 025 [facility] [place], [address], [place], [address], 5 09:47:10 XR, shoulder 2024 025 [facility] [place], [address], [place], [address], 5 09:50:26 Medication Orders bupivacaine HCl 0.5 % (5 mg/mL) injection solution 2024 025 [facility], [address] [facility], [place], [place], [id number], 5 09:06:36 Kenalog 10 mg/mL suspension for injection 2024 025 [facility]Works.iox[facility] #21130, [address] [facility], [place], [place], [id number], 5 09:06:36 bupivacaine HCl 0.5 % (5 mg/mL) injection solution 2024 025 [facility]70519, [address] [facility], [place], [place], [id number], 5 09:06:36 Kenalog 10 mg/mL suspension for injection 2024 025 [facility] #88889, [address] [facility], [place], [place], [id number], 5 09:06:36 bupivacaine HCl 0.5 % (5 mg/mL) injection solution 2023 024 [facility] #76529, [address] [facility], [place], [place], [id number], 4 09:03:21 Kenalog 10 mg/mL suspension for injection 2023 024 [facility] #11335, [address] [facility], [place], [place], [id number], 4 09:03:21 bupivacaine HCl 0.5 % (5 mg/mL) injection solution 2023 024 [facility] #77145, [address] [facility], [place], [place], [id number], 4 09:03:21 Kenalog 10 mg/mL suspension for injection 2023 024 [facility] #15892, [address] [facility], [place], [place], [id number], 4 09:03:21 Marcaine (PF) 0.5 % (5 mg/mL) injection solution 2023 024 [facility] #77213, [address] [facility], [place], [place], [id number], 4 09:34:53 Kenalog 10 mg/mL suspension for injection 2023 024 [facility] #82969, [address] [facility], [place], [place], [id number], 4 09:34:53 Marcaine (PF) 0.5 % (5 mg/mL) injection solution 2023 024 [facility] #77324, [address] [facility], [place], [place], [id number], 4 09:34:53 Kenalog 10 mg/mL suspension for injection 2023 024 [facility] #86599, [address] [facility], [place], [place], [id number], 4 09:34:53 prednisone 10 mg tablets in a dose pack 2023 024 [email or web address] [facility]998, [address] [facility], [place], [place], [id number], 5 09:02:34 bupivacaine HCl 0.5 % (5 mg/mL) injection solution 2023 024 [facility] #44677, [address] [place], [place], [id number], 4 12:58:47 Kenalog 10 mg/mL suspension for injection 2023 024 [facility] #42390, [address] [facility], [place], [place], [id number], 4 12:58:47 bupivacaine HCl 0.5 % (5 mg/mL) injection solution 2023 024 [facility] #51275, [address] [facility], [place], [place], [id number], 4 12:58:47 Kenalog 10 mg/mL suspension for injection 2023 024 [email or web address]25517, [address] [facility], [place], [place], [address], 4 12:58:47 prednisone 10 mg tablets in a dose pack 2023 024 [email or web address] [facility]05396, [address] [facility], [place], [place], [id number], 5 09:02:34 bupivacaine HCl 0.5 % (5 mg/mL) injection solution 2023 024 skx56 [facility]25491, [address] [facility], [place], [place], [id number], 4 11:01:39 Kenalog 10 mg/mL suspension for injection 2023 024 [facility] #43960, [address] [place], [place], [id number], 4 11:01:39 bupivacaine HCl 0.5 % (5 mg/mL) injection solution 2023 024 [facility] #42760, [address] [facility], [place], [id number], 4 11:01:39 Kenalog 10 mg/mL suspension for injection 2023 024 [facility] #18985, [address] [facility], [place], [place], [id number], 4 11:01:39 Patient TargetsNo targets recorded. Patient InstructionsNo instructions recorded. Reason for Referral None Reported. Results Created Date Observation Date Name Description Value Unit Range Abnormal Flag Note LastModifiedBy Organization Detail LastModifiedTime 07/25/19 25 XR, shoul keven No observ ation record ed. [facility] [place] [address], [place], [address], 07/25/2024 09:50:25 07/25/19 25 XR, knee No observ ation record ed. [facility] [place] [address], [place], [address], 07/25/2024 09:47:08 Result Notes None recorded. Problems Name Problem SNOMED Code Status Onset Date Resolution Date Notes Provider Name and Address Organization Details Recorded Time Pain of bilateral knee joints 6236867056534 04 Active 2023 LORENA Weber, [place] - [employer] 4 08:49:09 Osteoarthr itis of joint of left shoulder region 2374432444861 08 Active 2024 CARLY Navarro [address] [facility], [facility] [address], [place], [address] , [place] - [employer] 5 09:51:18 Bilateral shoulder osteoarthr itis 0185901079761 08 Active 2021 Not Available [facility] 3 04:52:56 Disorder of shoulder 685120985 Active Not Available [facility] 3 04:52:56 Bilateral shoulder joint pain 4365095080059 9104 Active 2021 Not Available [facility] 3 04:52:56 Localized, primary osteoarthr itis of the shoulder region Active Not Available [facility] 3 04:52:56 Localized, primary osteoarthr itis of the shoulder region Active 2022 Not Available [facility] 3 04:52:56 Localized, primary osteoarthr itis of the shoulder region Active 2021 Not Available [facility] 3 04:52:56 Osteoarthr itis of knee 586610265 Active Not Available [facility] 3 04:52:56 Knee pain Active Not Available [facility] 3 04:52:57 Osteoarthr itis 120620608 Active Not Available [facility] 3 04:52:57 Problem Notes None recorded. Medical Equipment None Reported. Allergies Allergen ID Allergen Name Allergen Category Reaction Reaction Severity Criticality Documentation Date Start Date Code Code System Note Provider Name and Address Organization Details Recorded Time 44530 ibuprofen medicatio n Not available Not available Not available 07/25/2024 5640 RxNorm LORENA Weber, [place] - [facility] [place] [employer] 5 09:01:33 Medications Name Sig Start Date [...] Available prednisol one acetate 1 % eye drops,[facility] 04/17 completed Not Available Not Available Not Available ciproflox acin 0.3 % eye drops 04/18 completed Not Available Not Available Not Available Kenalog 10 mg/mL suspensio n for injection Take 40 mg by injectio n route. 2024 active [facility]: 0003-049 4-20 Not Available Not Available Not Available diazepam [...] ne propionat e 50 mcg/actua tion nasal spray,[facility] pension 04/18 completed Not Available Not Available [...] office by the doctor 04/27 completed NDC: 02473412 001 Not Available Not Available Not Available [...] mg by injectio [place] route. 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 [facility] [employer] 07/27/2023 10:01:39 Date Recorded Body height Body mass index (BMI) Body weight Provider Name and Address Organization Details Last Updated DateTime 10/20/2023 157.48 cm 42.1 kg/m2 721952.25 luis Villa VISHAL Ivey [facility] [employer] 10/20/2023 11:22:27 Date Recorded Body height Body mass index (BMI) Body weight Provider Name and Address Organization Details Last Updated DateTime 01/22/2024 157.48 cm 41.2 kg/m2 287653.28 g Brittny MustafasLEIDAA [facility] [employer] 01/22/2024 08:48:30 Date Recorded Body height Body mass index (BMI) Body weight Provider Name and Address Organization Details Last Updated DateTime 04/22/2024 152.4 cm 41 kg/m2 82445.4 g Brittny MustafasLORENA [facility] [employer] 04/22/2024 09:17:10 Social History Question Answer Notes LastModified by Organizat [employer] Details LastModified Time Tobacco Smoking Status Never Smoker LORENA Weber [facility] [employer] 04/27/2023 09:20:36 What Was The Date Of Your Most Recent Tobacco Screening? 01/20/2022 [id number] Information not available 08/10/2022 Sex: Unknown Functional Status Question Answer Note LastModified by Organizat [employer] Details LastModified Time What is your level of alcohol consumption? None [id number] Information not available 08/10/2022 Mental Status None recorded. Family History Relationship Description Onset Age of this Age Resolved Age Notes LastModified by Organization Details LastModified Time Father Hypertensive disorder [email or web address] Not available 2022 09:20:25 Mother Family history of malignant neoplasm [id number] Not available 08/10/2022 04:42:51 Father Diabetes mellitus [id number] Not available 08/10/2022 04:42:51 Medical History Condition Response SKIN PROBLEMS Y ARTHRITIS Y Gynecological HistoryNo gynecological history recorded. Obstetrics History GPAL:G 0 P 0 0 0 0 Past Encounters Encounter ID Performer Location Encounter Start Date Encounter Closed Date Diagnosis/Indication Diagnosis SNOMED-CT Code Diagnosis ICD10 Code Diagnosis Note [id number] CARLY Navarro [facility] [place] [address] [place] [address] 10/29/2020 00:00:00 10/29/2020 11:05:18 [id number] CARLY Navarro [facility] [place] [address] [place] [address] 12/08/2020 00:00:00 12/08/2020 15:29:19 [id number] CARLY Navarro [facility] [place] [address] [place] [address] 12/15/2020 00:00:00 12/15/2020 15:45:39 [id number] CARLY Navarro [facility] [place] [address] [place] [address] 12/22/2020 00:00:00 12/22/2020 14:48:01 [id number] CARLY Navarro [facility] [place] [address] [place] [address] 01/29/2021 00:00:00 01/29/2021 15:10:39 [id number] German Marie MD [facility] [place] [address] [place] [address] 04/29/2021 00:00:00 04/29/2021 14:22:08 [id number] German Marie MD [facility] [place] [address] [place] [address] 07/29/2021 00:00:00 07/29/2021 14:30:17 [id number] German Marie MD [facility] [place] [address] [place] [address] 10/21/2021 00:00:00 10/21/2021 10:44:25 [id number] German Marie MD [facility] [place] [address] [place] [address] 01/20/2022 00:00:00 01/20/2022 12:00:40 [id number] German Marie MD [facility] [place] [address] [place] [address] 04/25/2022 00:00:00 04/25/2022 11:06:51 [id number] German Marie MD [facility] [place] [address] [place] [address] 07/25/2022 00:00:00 07/25/2022 10:57:19 [id number] German Marie MD [facility] [place] [address] [place] [address] 10/24/2022 09:50:04 10/24/2022 10:42:57 Osteoarthritis 476219219 M17.0 Bilateral shoulder osteoarthritis 1159848012 46854 M19.011 Localized, primary osteoarthritis of the shoulder region 359188270 M19.012 [id number] German Marie MD [facility] [place] [address] [place] [address] 01/23/2023 10:57:41 01/23/2023 11:21:52 Osteoarthritis 834552093 M17.0 Bilateral shoulder osteoarthritis 0318667096 57849 M19.011 Localized, primary osteoarthritis of the shoulder region 389844829 M19.651 [id number] Agusto Low MD [facility] [place] [address] [place] [address] 04/27/2023 09:06:57 04/27/2023 10:11:57 Bilateral shoulder osteoarthritis 2252028586 85329 M19.011 Localized, primary osteoarthritis of the shoulder region 441019379 M19.012 Osteoarthritis 543527368 M17.0 [id number] Agusto Low MD [facility] [place] [address] [place] [address] 07/27/2023 09:56:05 07/27/2023 10:49:12 Bilateral shoulder osteoarthritis 2019377454 84894 M19.011 Localized, primary osteoarthritis of the shoulder region 870452535 M19.012 Osteoarthr itis of knee 642537197 M17.0 [id number] Carlos Reagan MD [facility] [place] [address] [place] [address] 10/20/2023 11:19:29 10/20/2023 11:45:16 Bilateral shoulder osteoarthritis 9112352994 69317 M19.011 Localized, primary osteoarthritis of the shoulder region 370877994 M19.012 Osteoarthr itis of knee 947484049 M17.0 [id number] Carlos Reagan MD [facility] [place] [address] [place] [address] 01/22/2024 08:46:03 01/22/2024 09:13:47 Bilateral shoulder osteoarthritis 1317421581 50312 M19.011 Bilateral shoulder joint pain 6046644102 7752206 M25.511 M25.512 Osteoarthr itis of knee 939527951 M17.0 Pain of bi lateral knee joints 4283824610 59567 M25.561 M25.647 [id number] Carlos Reagan MD [facility] [place] [address] [place] [address] 04/22/2024 08:43:20 04/22/2024 09:20:08 Bilateral shoulder osteoarthritis 5534768114 42554 M19.011 Bilateral shoulder joint pain 2496284428 3358359 M25.511 M25.512 Pain of bi lateral knee joints 9831804511 87628 M25.561 M25.562 Osteoarthr itis of knee 975559605 M17.0 [id number] Carlos Reagan MD [facility] [place] [address] [place] [address] 07/25/2024 08:45:44 07/25/2024 09:35:22 Bilateral shoulder osteoarthritis 3599466430 95384 M19.011 Bilateral shoulder joint pain 0883097086 8338220 M25.511 M25.512 Pain of bi lateral knee joints 9026237655 46810 M25.561 M25.562 Osteoarthr itis of knee 516041711 M17.0 Osteoarthr itis of joint of left shoulder region 6906550947 95793 M19.012 Health Concerns Section Related Observation LastModified by Organization Detai ls LastModified Time None Recorded Concern Status LastModified by Organization Details LastModified Time None Recorded Advance Directives Directive None Recorded Payers Encounter Date Sequence Insurance Name Policy Number Policy Lyn Covered Member ID Lyn Member ID Guarantor Name 07/27/2023 1 [facility] - [employer] - [employer] - MEDICARE COMPLETE PLAN 2 (MEDICARE REPLACEMENT HMO) [id number] Korina A Coppotelli [id number] Korina Coppotelli 07/27/2023 2 [place] [facility] Korina Coppotelli [id number] Korina Coppotelli 10/20/2023 1 [facility] - [employer] - SECURE [employer] - MEDICARE COMPLETE PLAN 2 (MEDICARE REPLACEMENT HMO) [id number] Korina A Coppotelli [id number] Korina Coppotelli 10/20/2023 2 [place] [facility] Korina Coppotelli [id number] Korina Coppotelli 01/22/2024 1 [facility] - [employer] - [employer]URE [employer] - MEDICARE COMPLETE PLAN 2 (MEDICARE REPLACEMENT HMO) [id number] Korina A Coppotelli [id number] Korina Coppotelli 01/22/2024 2 [place] [facility] Korina Coppotelli [id number] Korina Coppotelli 04/22/2024 1 [facility] - [employer] - [employer]URE [employer] - MEDICARE COMPLETE PLAN 2 (MEDICARE REPLACEMENT HMO) [id number] Korina A Coppotelli [id number] Korinamaira Cavazos 04/22/2024 2 [place] [facility] Korina Cavazos [id number] Korina Cavazos 07/25/2024 1 [facility] - SECURE HORIZONS - MEDICARE COMPLETE PLAN 2 (MEDICARE REPLACEMENT HMO) [id number] Korina Cavazos [id number] Korina Cavazos 07/25/2024 2 [place] [facility] Korina Cavazos [id number] Korina Cavazos Notes Date Note Type Note Provider Name and Address Organization Details Recorded Time 07/27/2023 text/html Patient returns complaining of bilateral shoulder pain and bilateral knee pain. She has severe primary osteoarthritis of all 4 joints. She has htvs-ie-azwa glenohumeral osteoarthritis with flattening of the humeral [...] no new trauma or injury. CARLY Navarro [address] [place] [address], [facility] [address], [place], [address], [facility] [employer] 07/27/2023 10:24:12 10/20/2023 text/html Patient returns requesting injections both knees both shoulders. She has severe primary osteoarthritis of all 4 joints. She has rskv-xp-udxx glenohumeral osteoarthritis with flattening of the humeral [...] or injury. CARLY Navarro [address], [facility] [address], [place], [address], [employer] 10/20/2023 11:47:20 01/22/2024 text/html The patient retu [...] b.i.d. with food. CARLY Navarro [address], [facility] [address], [place], [address], [employer] 01/22/2024 09:34:35 04/22/2024 text/html The patient retu [...] trauma or injury both shoulders also show skgy-dv-khtx glenohumeral osteoarthritis. She does take diclofenac 75 mg b.i.d. with food she would like to have both knees and both shoulders injected again today. CARLY Navarro [address], [facility] [address], [place], [address], [employer] 04/22/2024 09:19:01 07/25/2024 text/html The patient retu rns requesting repeat cortisone injections both knees and both shoulders. She has severe guuo-kj-vxzj primary osteoarthritis with varus deformities both knees [...] for her arthritis pain. CARLY Navarro [address], [address], [place], [address], [employer] 07/25/2024 09:51:58 OBGyn Episode No OBEpisode recorded.
--- OUTSIDE RECORDS SUMMARY | 2024-11-08 07:57 | XMS_ITS | Clinical Summary ---
Author Organization [facility] Address [address] [place] [address] Care Team Providers Care Analytics Developer Name Role Phone Unavailable Primary Care Provider [...]
--- NOTE | 2024-11-08 08:00 | EST_ITS ---
Patient Info Name: Korina Cavazos Age: 79 years : 1945 Gender: Female Ht: 61 in Wt: 170 lbs BSA: 1.85 m2 HR: 67 bpm BP: 142 / 77 mmHg Exam Date: 11/08/2024 8:00 AM Patient Status: O Admit Date: 11/08/2024 Exam Type: CA stress fern w NM A regadenoson stress test was performed. Staff Referring Physician: Dalton Leavitt DO Attending Provider: Dalton Leavitt DO Exercise Technologist: Sinai Shearer Exercise Physician: Dalton Leavitt DO Summary 1. 1. Negative lexiscan stress test for ischemic ST changes by ECG criteria. 2. 2. Baseline hypertension. 3. 3. Nuclear scan to follow and will be reported separately. Please correlate with it. 4. 4. Patient informed of the above results. Protocol: Lexiscan Stress ECG Details Stage: REST Duration (min): 1 min : 28 sec HR (bpm): 67 SBP (mmHg): 142 DBP (mmHg): 77 Stage: REST Duration (min): 5 min : 37 sec HR (bpm): 74 SBP (mmHg): 142 DBP (mmHg): 77 Stage: STAGE 1 Duration (min): 0 min : 59 sec HR (bpm): 103 SBP (mmHg): 157 DBP (mmHg): 64 Stage: RECOVERY Duration (min): 1 min : 0 sec HR (bpm): 107 SBP (mmHg): 157 DBP (mmHg): 64 Stage: RECOVERY Duration (min): 2 min : 0 sec HR (bpm): 97 SBP (mmHg): 157 DBP (mmHg): 64 Stage: RECOVERY Duration (min): 3 min : 0 sec HR (bpm): 91 SBP (mmHg): 170 DBP (mmHg): 73 Stage: RECOVERY Duration (min): 3 min : 37 sec HR (bpm): 91 SBP (mmHg): 170 DBP (mmHg): 73 Rest HR: 74 bpm Peak HR: 113 bpm Rest Sys BP: 142 mmHg Peak Sys BP: 170 mmHg Max Pred HR: 143 bpm % Max Pred HR: 79 % Target HR: 122 bpm Max RPP: 19,210 bpm*mmHg Termination Reason: Completed protocol Cardiac Symptoms: None Total Time: 1 min : 0 sec Rest Pride BP: 77 mmHg Peak Pride BP: 73 mmHg Total Dose: 0.4 mg Resting ECG Sinus rhythm. Stress ECG No ST changes. Arrhythmias None. Report Signatures
== END 2024-11-08 07:54 | disposition home or self-care (01) ==
PROVIDERS: PCP Family Medicine; Visit Provider Internal Medicine Cardiovascular Disease
DX: Z01.810 Encounter for preprocedural cardiovascular examination (principal); I10 Essential (primary) hypertension
CPT/HCPCS: 78452; 93017; A9502; J2785

== ENCOUNTER 2024-11-11 00:22 | Day surgery (SDC) | payer MEDICARE, SELFPAY ==
--- NOTE | 2024-10-22 09:49 | PC.NURSE ---
Report to the Outpatient Waiting Room, entrance under the green pavilion located off [facility], at time ___6:00AM____ on date ___11/11/24____. Planned Procedure Time: ___7:30AM .? Time changes happen often and if your time is changed the preop area will call you the afternoon before. - You and your visitor will be asked to self-screen and do not enter if you have any COVID symptoms. Please call surgeon if you need to reschedule. - A mask is optional within the hospital at this time. Patients may have clear liquids (water, carbonated beverages, clear teas, apple juice) until 3 hours prior to surgery (4:30AM) with a maximum of 20 ounces. - No food from midnight until time of surgery and no smoking, or chewing tobacco (or any form of nicotine). No chewing gum, candy or mints. Take only the following medications with a SIP of water on the morning of surgery: NONE DO NOT STOP ANY OF YOUR OTHER PRESCRIPTION MEDICATIONS PRIOR TO SURGERY EXCEPT THE FOLLOWING Hold all vitamins and supplements for 3 days per anesthesiologist. Medications to discontinue per physician ____HOLD DICLOFENAC (ALL NSAIDS) AND VITAMINS/SUPPLEMENTS 7 DAYS PRE-OP PER DR DOMÍNGUEZ.__ Date to take last dose 11/03/24 Please no make-up, nail bermudian, hairspray, perfume, deodorant, or body powder the day of surgery.? No jewelry (including any body piercings) or valuables the day of surgery, leave them at home.? Please take a shower or bath the night before, or the morning of, surgery with an antibacterial soap.? Wear comfortable, loose fitting clothing.? - Jewelry must be removed prior to entering the operating room.? Rings and piercings that are not removed may be cut off. - The hospital will not accept responsibility for valuables.? - Please leave all valuables, including medications, at home the day of surgery. If you are going home after surgery, a licensed commercial collections driver must drive you home.? - NO public transportation without another adult if you receive anesthesia. - We recommend that an adult stay with you for 24 hours following discharge. - We also recommend that you do not drive, make important decision, drink alcoholic beverages, or take any drugs that were not prescribed by your health care provider for at least 24 hours after your discharge time. Follow any additional instructions given to you from your surgeon. ROLAND SHOWER PER DR DOMÍNGUEZ Telephone instructions given to ____PATIENT and asked if any additional questions and then verbalized understanding. Patient advised to call surgeon office or pre surgery nurse liaison [phone] if any additional questions.
[2024-10-22 10:10] VITALS: BMI 34.1
[2024-10-22 10:35] VITALS: BP 175/74; PULSE 69; RESP 16; TEMP 36.9; O2SAT 99; BMI 34.1
[2024-10-22 11:00] VITALS: BP 163/84
--- NOTE | 2024-11-08 10:27 | P.HP_ITS ---
H&P: HPI History of Present Illness Date/Time: 11/08/24 10:27 Chief Complaint: DJD bilateral knees. Narrative: 79-year-old female who presents today for a right total knee arthroplasty with cortisone injection left knee. Patient has been having symptoms and pain in both of her knees for years. She has been getting cortisone injections on a regular basis in her knees. Last injections were in July this year. She is getting minimal improvement from the injections. She has also been taking anti- inflammatories again without significant improvement of her symptoms. Patient has advanced medial compartment osteoarthritis in both knees and at this point she feels she is ready to proceed with total knee arthroplasty rather than continue nonsurgical treatment Review of Systems Review of Systems: All systems reviewed & are unremarkable except as noted in HPI and below PMFSH Past Medical History Medical History Encounter for Pap cervical smear following prior abnormal smear Chronic kidney disease, stage 3 Arthritis Gastroesophageal reflux disease Hyperlipidemia Hypertension Prediabetes Surgical History Surgical History History of section Family History Family History Mother Diabetes mellitus Family history of cardiovascular disease Family history of genetic disorder Family history of coronary artery disease Father Hypertension Social History Social History Social History: Surrogate medical decision maker: Lucero Maldonado, daughter. Code status: Full code. Smoking status: Never smoker Second hand tobacco smoke exposure: No Alcohol intake: never Substance use: never Do You Feel Safe in your Home?: Yes Lack of Transportation: No Lack of Food: Never True Current Housing: I Have Housing Concerned About Future Housing: No Difficulty Paying Gas/Electric Bills: No Difficulty Paying for Meds: No Currently Unemployed: No Education: High School Diploma/GED Difficulty w/ Childcare or Family Care: No Living arrangements: with family Additional living arrangements comments: [facility] Spiritual care concerns: No Meds Home Medications and Allergies Home Medications ?Medication ?Instructions ?Recorded ?Confirmed ?Type glucosamine 500 mg-chondroit 400 1 cap PO DAILY 05/06/19 11/06/24 History mg-vit C 2 mg-kateryna 0.33 mg capsule ascorbic acid (vitamin C) 1,000 mg 1 g PO DAILY 09/02/20 11/06/24 History tablet omega 8-vsb-oxr-fish oil 1,200 mg 1 cap PO DAILY 09/02/20 11/06/24 History (144 mg-216 mg) capsule (Fish Oil) calcium polycarbophil 625 mg tablet 1,250 mg PO DAILY 02/20/23 11/06/24 History cholecalciferol (vitamin D3) 50 50 mcg PO DAILY 02/20/23 11/06/24 History mcg (2,000 unit) capsule psyllium husk 0.4 gram capsule 1.2 g PO BID 03/06/23 11/06/24 History (Metamucil) atorvastatin 10 mg tablet See Rx Instructions .Route 08/16/24 11/06/24 Rx .COMPLEX #100 tabs hydrochlorothiazide 12.5 mg tablet See Rx Instructions .Route 09/09/24 11/06/24 Rx .COMPLEX #50 tabs losartan 50 mg tablet See Rx Instructions .Route 09/09/24 11/06/24 Rx .COMPLEX #100 tabs magnesium oxide 400 mg PO DAILY 10/06/24 11/06/24 History mecobalamin (vitamin B12) 1 tablet PO DAILY 10/06/24 11/06/24 History acetaminophen 650 mg 1,300 mg PO Q12H PRN pain 10/22/24 11/06/24 History tablet,extended release (Tylenol Arthritis Pain) cyanocobalamin (vitamin B-12) 1,000 mcg PO DAILY 10/22/24 11/06/24 History 1,000 mcg capsule diclofenac sodium 75 mg 75 mg PO DAILY PRN pain 10/22/24 11/06/24 History tablet,delayed release docusate sodium 100 mg capsule 100 mg PO BID PRN constipation 10/22/24 11/06/24 History (Colace) celecoxib 100 mg capsule (Celebrex) 100 mg PO DAILY #7 caps 10/28/24 11/06/24 Rx Allergies Allergy/AdvReac Type Severity Reaction Status Date / Time ibuprofen AdvReac Mild Skin Verified 10/24/24 13:56 Reaction lisinopril AdvReac Mild cough Verified 10/24/24 13:56 Exam Narrative: 79-year-old female alert pleasant. She is 5 ft 2 and 183 lb BMI is 33.5. Her right knee range of motion is from 5-75 degrees. There is a fixed varus deformity. Severe tenderness over the medial joint line to palpation. She has normal quad strength. Hip range of motion on the right is full without discomfort, negative Stinchfield maneuver. 2+ dorsalis pedis and posterior tibial artery pulse palpable. Normal sensation right lower extremity no edema in either lower extremity. Resp: Auscultation: clear to auscultation bilaterally Cardio: Rate: regular rate Rhythm: regular rhythm Assessment and Plan Assessment and plan (1) Primary localized osteoarthritis of both knees: Code(s): M17.0 - Bilateral primary osteoarthritis of knee Status: Acute Plan 79-year-old female who has severe medial compartment osteoarthritis in both knees. Nonsurgical treatment at this point is not giving her improvement. She does have advanced osteoarthritis in both knees with limited range of motion. Her symptoms are affecting her daily lifestyle and she feels she is ready proceed with total knee arthroplasty on the right at this point. Surgical procedures well as the risks and complications were discussed in detail all questions were answered we will proceed. Patient was taking diclofenac and we have transitioned her to low-dose Celebrex, 100 mg that she can utilize 1 week prior to surgery. She will see her primary care doctor for pre-surgical clearance. Patient's nasal swab was negative. Hemoglobin 12.1 and platelets were 281. Her creatinine is 1.00 GFR was at 54. Patient did have abnormalities on her EKG and is seen Dr. Leavitt. At that time the dictation patient was scheduled for a stress test, initial portion was done which did not show any reversible ischemia or ST changes. Nuclear portion of the test and not been completed at time of dictation. The nuclear portion of the test will be done and read but will not be ready till later on Monday. We will review this. Certainly if there is any changes cardiology will make that determination whether not patient is cleared for surgery.
[2024-11-11] VITALS (15 sets, daily range): BP systolic 128–164; BP diastolic 59–91; PULSE 64–84; RESP 12–20; TEMP 36.4–37.4; O2SAT 93–100
--- NOTE | ~2024-11-11 | XR_ITS ---
EXAMINATION: [id number] DATE: 11/11/2024 11:51 INDICATION: Status post right total knee arthroplasty TECHNIQUE: AP and crosstable lateral views of the right knee were obtained. COMPARISON: None. FINDINGS: Right total knee arthroplasty with patellar resurfacing which appears well seated in near-anatomic al ignment. No fracture. Expected postoperative intra-articular, intramedullary and surrounding soft tis lucio gas. IMPRESSION: 1. Expected appearance post right total knee arthroplasty, negative for postoperative purposes. Reviewed, dictated and finalized at location A. IMPRESSION: 1. Expected appearance post right total knee arthroplasty, negative for postope rative purposes.
--- OUTSIDE RECORDS SUMMARY | 2024-11-11 00:25 | XMS_ITS | Clinical Summary ---
Author Organization [facility] Address [address] [place] [address] Care Team Providers Care Union Carpenter Name Role Phone Unavailable Primary Care Provider [...]
--- OUTSIDE RECORDS SUMMARY | 2024-11-11 00:25 | XMS_ITS | Data Portability ---
Author Organization [place] - [facility], Main Office Address [address] [place] [address] Care Team Providers Care Senior Asset Manager Name Role Phone EVELYNE LEAVITT Primary Care Provider EVELYNE LEAVITT Referring Provider [phone] Assessment Encounter Date Assessment Date Assessment LastModified [...] DO Not Attach Compendium, Do Not Delete/merge, [id number] 5 09:00:23 injection/a spiration joint/bursa (PROC) 2024 025 [email or web address] In-Office Order, Internal Use Only DO Not Attach Compendium DO Not Attach Compendium, Do Not Delete/merge, [id number] 5 09:00:23 injection/a spiration joint/bursa (PROC) 2023 024 [email or web address] In-Office Order, Internal Use Only DO Not Attach Compendium DO Not Attach Compendium, Do Not Delete/merge, [id number] 4 09:02:38 injection/a spiration joint/bursa (PROC) 2023 024 [email or web address] In-Office Order, Internal Use Only DO Not Attach Compendium DO Not Attach Compendium, Do Not Delete/merge, [id number] 4 09:02:38 injection/a spiration joint/bursa (PROC) - in office procedure, administere d by provider 2023 024 [email or web address] In-Office Order, Internal Use Only DO Not Attach Compendium DO Not Attach Compendium, Do Not Delete/merge, [id number] 4 08:52:03 injection/a spiration joint/bursa (PROC) - in office procedure, administere d by provider 2023 024 [email or web address] In-Office Order, Internal Use Only DO Not Attach Compendium DO Not Attach Compendium, Do Not Delete/merge, [id number] 4 08:52:03 injection/a spiration joint/bursa (PROC) 2023 024 [email or web address] In-Office Order, Internal Use Only DO Not Attach Compendium DO Not Attach Compendium, Do Not Delete/merge, [id number] 4 11:26:46 injection/a spiration joint/bursa (PROC) 2023 024 [email or web address] In-Office Order, Internal Use Only DO Not Attach Compendium DO Not Attach Compendium, Do Not Delete/merge, [id number] 4 11:26:46 injection/a spiration joint/bursa (PROC) 2023 024 [email or web address] In-Office Order, Internal Use Only DO Not Attach Compendium DO Not Attach Compendium, Do Not Delete/merge, 4 10:06:10 injection/a spiration joint/bursa (PROC) 2023 024 [email or web address] In-Office Order, Internal Use Only DO Not Attach Compendium DO Not Attach Compendium, Do Not Delete/merge, 4 10:04:20 Surgeries None recorded. Imaging XR, knee 2024 025 [facility] [place], [address], [place], [address], 5 09:47:10 XR, shoulder 2024 025 [facility] [place], [address], [place], [address], 5 09:50:26 Medication Orders bupivacaine HCl 0.5 % (5 mg/mL) injection solution 2024 025 [email or web address] [facility], [address], [place], [place], [id number], 5 09:06:36 Kenalog 10 mg/mL suspension for injection 2024 025 [email or web address][employer]x56 [facility]56408, [address], [place], [place], [id number], 5 09:06:36 bupivacaine HCl 0.5 % (5 mg/mL) injection solution 2024 025 [facility] #40647, [address], [place], [place], [id number], 5 09:06:36 Kenalog 10 mg/mL suspension for injection 2024 025 [email or web address] [facility] #71083, [address], [place], [place], [id number], 5 09:06:36 bupivacaine HCl 0.5 % (5 mg/mL) injection solution 2023 024 [facility] #88361, [address], [place], [place], [id number], 4 09:03:21 Kenalog 10 mg/mL suspension for injection 2023 024 [facility] #09690, [address], [place], [place], [id number], 4 09:03:21 bupivacaine HCl 0.5 % (5 mg/mL) injection solution 2023 024 [facility]36043, [address], [place], [place], [id number], 4 09:03:21 Kenalog 10 mg/mL suspension for injection 2023 024 [facility] #43862, [address], [place], [place], [id number], 4 09:03:21 Marcaine (PF) 0.5 % (5 mg/mL) injection solution 2023 024 [facility] #01459, [address], [place], [place], [id number], 4 09:34:53 Kenalog 10 mg/mL suspension for injection 2023 024 [facility]485[facility], [address], [place], [place], [id number], 4 09:34:53 Marcaine (PF) 0.5 % (5 mg/mL) injection solution 2023 024 [facility] #13922, [address], [place], [place], [id number], 4 09:34:53 Kenalog 10 mg/mL suspension for injection 2023 024 [facility] #49010, [address], [place], [place], [id number], 4 09:34:53 prednisone 10 mg tablets in a dose pack 2023 024 [email or web address] [facility]81568, [address], [place], [place], [id number], 5 09:02:34 bupivacaine HCl 0.5 % (5 mg/mL) injection solution 2023 024 [facility] #17372, [address] [place], [place], [id number], 4 12:58:47 Kenalog 10 mg/mL suspension for injection 2023 024 [facility] #06902, [address], [place], [place], [id number], 4 12:58:47 bupivacaine HCl 0.5 % (5 mg/mL) injection solution 2023 024 [facility] #76024, [address], [place], [place], [id number], 4 12:58:47 Kenalog 10 mg/mL suspension for injection 2023 024 [email or web address] [facility] #41177, [address], [place], [place], [id number], 4 12:58:47 prednisone 10 mg tablets in a dose pack 2023 024 [email or web address] [facility] #18842, [address], [place], [place], [id number], 5 09:02:34 bupivacaine HCl 0.5 % (5 mg/mL) injection solution 2023 024 [email or web address] [facility] #35783, [address], [place], [place], [id number], 4 11:01:39 Kenalog 10 mg/mL suspension for injection 2023 024 [facility] #10395, [address] [place], [place], [id number], 4 11:01:39 bupivacaine HCl 0.5 % (5 mg/mL) injection solution 2023 024 [facility]81476, [address] [facility] [place], [id number], 4 11:01:39 Kenalog 10 mg/mL suspension for injection 2023 024 [facility] #91202, [address], [place], [place], [id number], 4 11:01:39 Patient TargetsNo targets recorded. Patient InstructionsNo instructions recorded. Reason for Referral None Reported. Results Created Date Observation Date Name Description Value Unit Range Abnormal Flag Note LastModifiedBy Organization Detail LastModifiedTime 07/25/19 25 XR, shoul keven No observ ation record ed. [facility] [place] [address], [place], [address], 07/25/2024 09:50:25 07/25/19 25 XR, knee No observ ation record ed. [facility] [place] [address], [place], [address], 07/25/2024 09:47:08 Result Notes None recorded. Problems Name Problem SNOMED Code Status Onset Date Resolution Date Notes Provider Name and Address Organization Details Recorded Time Pain of bilateral knee joints 8980411813944 04 Active 2023 LORENA Weber, [place] - [facility] 4 08:49:09 Osteoarthr itis of joint of left shoulder region 6257608916946 08 Active 2024 CARLY Navarro [address] [facility], [facility] [address], [place], [address] , [place] - [employer] [employer] 5 09:51:18 Bilateral shoulder osteoarthr itis 6274234529472 08 Active 2021 Not Available [facility] 3 04:52:56 Disorder of shoulder 563536533 Active Not Available [facility] 3 04:52:56 Bilateral shoulder joint pain 0837421164804 9104 Active 2021 Not Available [facility] 3 04:52:56 Localized, primary osteoarthr itis of the shoulder region Active Not Available [facility] 3 04:52:56 Localized, primary osteoarthr itis of the shoulder region Active 2022 Not Available [facility] 3 04:52:56 Localized, primary osteoarthr itis of the shoulder region Active 2021 Not Available [facility] 3 04:52:56 Osteoarthr itis of knee 650669438 Active Not Available [facility] 3 04:52:56 Knee pain Active Not Available [facility] 3 04:52:57 Osteoarthr itis 547791318 Active Not Available [facility] 3 04:52:57 Problem Notes None recorded. Medical Equipment None Reported. Allergies Allergen ID Allergen Name Allergen Category Reaction Reaction Severity Criticality Documentation Date Start Date Code Code System Note Provider Name and Address Organization Details Recorded Time 59196 ibuprofen medicatio n Not available Not available Not available 07/25/2024 5640 RxNorm LORENA Weber, [place] - [facility] 5 09:01:33 Medications Name Sig Start Date [...] Available prednisol one acetate 1 % eye drops,[facility] 04/17 completed Not Available Not Available Not Available ciproflox acin 0.3 % eye drops 04/18 completed Not Available Not Available Not Available Kenalog 10 mg/mL suspensio n for injection Take 40 mg by injectio n route. 2024 active [facility]: [phone] 4-20 Not Available Not Available Not [...] ne propionat e 50 mcg/actua tion nasal spray,[facility] pension 04/18 completed Not Available Not Available [...] office by the doctor 04/27 completed NDC: [id number] 001 Not Available Not Available Not Available [...] by injectio [place] route. 04/[place] [address]-24 09-10 Not Available Not Available Not Available Fluarix Quad 4563-2361 (PF) 60 mcg (15 mcg x 4)/0.5 [...] Updated DateTime 07/25/2024 152.4 cm 37.5 kg/m2 02677.74 g Brittny Mustafaalton [facility] 07/25/2024 09:31:28 Date Recorded Body height Body mass index (BMI) Body weight Provider Name and Address Organization Details Last Updated DateTime 07/27/2023 157.48 cm 43 kg/m2 828075.21 g Brittny Mustafaalton [facility] 07/27/2023 10:01:39 Date Recorded Body height Body mass index (BMI) Body weight Provider Name and Address Organization Details Last Updated DateTime 10/20/2023 157.48 cm 42.1 kg/m2 863673.25 luis [place] VISHAL Ivey [facility] 10/20/2023 11:22:27 Date Recorded Body height Body mass index (BMI) Body weight Provider Name and Address Organization Details Last Updated DateTime 01/22/2024 157.48 cm 41.2 kg/m2 731547.28 g Brittny MustafasLEIDAA [facility] 01/22/2024 08:48:30 Date Recorded Body height Body mass index (BMI) Body weight Provider Name and Address Organization Details Last Updated DateTime 04/22/2024 152.4 cm 41 kg/m2 27092.4 g Brittny MustafasLORENA [facility] 04/22/2024 09:17:10 Social History Question Answer Notes LastModified by Organizat [employer] Details LastModified Time Tobacco Smoking Status Never Smoker LORENA Weber [facility] 04/27/2023 09:20:36 What Was The Date Of Your Most Recent Tobacco Screening? 01/20/2022 [id number] Information not available 08/10/2022 Sex: Unknown Functional Status Question Answer Note LastModified by Organizat [employer] Details LastModified Time What is your level of alcohol consumption? None [id number] Information not available 08/10/2022 Mental Status None recorded. Family History Relationship Description Onset Age of this Age Resolved Age Notes LastModified by Organization Details LastModified Time Father Hypertensive disorder [email or web address] Not available 2022 09:20:25 Mother Family history of malignant neoplasm [id number] Not available 08/10/2022 04:42:51 Father Diabetes mellitus [id number] Not available 08/10/2022 04:42:51 Medical History Condition Response SKIN PROBLEMS Y ARTHRITIS Y Gynecological HistoryNo gynecological history recorded. Obstetrics History GPAL:G 0 P 0 0 0 0 Past Encounters Encounter ID Performer Location Encounter Start Date Encounter Closed Date Diagnosis/Indication Diagnosis SNOMED-CT Code Diagnosis ICD10 Code Diagnosis Note [id number] CARLY Navarro [facility] [place] [address] [place] [address] 10/29/2020 00:00:00 10/29/2020 11:05:18 [id number] CARLY Navarro [facility] [place] [address] [place] [address] 12/08/2020 00:00:00 12/08/2020 15:29:19 [id number] CARLY Navarro [facility] [place] [address] [place] [address] 12/15/2020 00:00:00 12/15/2020 15:45:39 [id number] CARLY Navarro [facility] [place] [address] [place] [address] 12/22/2020 00:00:00 12/22/2020 14:48:01 [id number] CARLY Navarro [facility] [place] [address] [place] [address] 01/29/2021 00:00:00 01/29/2021 15:10:39 [id number] German Marie MD [facility] [place] [address] [place] [address] 04/29/2021 00:00:00 04/29/2021 14:22:08 [id number] German Marie MD [facility] [place] [address] [place] [address] 07/29/2021 00:00:00 07/29/2021 14:30:17 [id number] German Marie MD [facility] [place] [address] [place] [address] 10/21/2021 00:00:00 10/21/2021 10:44:25 [id number] German Marie MD [facility] [place] [address] [place] [address] 01/20/2022 00:00:00 01/20/2022 12:00:40 [id number] German Marie MD [facility] [place] [address] [place] [address] 04/25/2022 00:00:00 04/25/2022 11:06:51 [id number] German Marie MD [facility] [place] [address] [place] [address] 07/25/2022 00:00:00 07/25/2022 10:57:19 [id number] German Marie MD [facility] [place] [address] [place] [address] 10/24/2022 09:50:04 10/24/2022 10:42:57 Osteoarthritis 932031666 M17.0 Bilateral shoulder osteoarthritis 5826648748 51647 M19.011 Localized, primary osteoarthritis of the shoulder region 157208136 M19.012 [id number] German Marie MD [facility] [place] [address] [place] [address] 01/23/2023 10:57:41 01/23/2023 11:21:52 Osteoarthritis 429136549 M17.0 Bilateral shoulder osteoarthritis 3054549968 64519 M19.011 Localized, primary osteoarthritis of the shoulder region 452924092 M19.431 [id number] Agusto Low MD [facility] [place] [address] [place] [address] 04/27/2023 09:06:57 04/27/2023 10:11:57 Bilateral shoulder osteoarthritis 4275518342 90834 M19.011 Localized, primary osteoarthritis of the shoulder region 910697759 M19.012 Osteoarthritis 299827081 M17.0 [id number] Agusto Low MD [facility] [place] [address] [place] [address] 07/27/2023 09:56:05 07/27/2023 10:49:12 Bilateral shoulder osteoarthritis 0469581443 89573 M19.011 Localized, primary osteoarthritis of the shoulder region 532106268 M19.012 Osteoarthr itis of knee 997964432 M17.0 [id number] Carlos Reagan MD [facility] [place] [address] [place] [address] 10/20/2023 11:19:29 10/20/2023 11:45:16 Bilateral shoulder osteoarthritis 5533410410 95830 M19.011 Localized, primary osteoarthritis of the shoulder region 245298413 M19.012 Osteoarthr itis of knee 136184290 M17.0 [id number] Carlos Reagan MD [facility] [place] [address] [place] [address] 01/22/2024 08:46:03 01/22/2024 09:13:47 Bilateral shoulder osteoarthritis 7779790919 89963 M19.011 Bilateral shoulder joint pain 2382830136 1842369 M25.511 M25.512 Osteoarthr itis of knee 999492816 M17.0 Pain of bi lateral knee joints 8582801550 02301 M25.561 M25.656 [id number] Carlos Reagan MD [facility] [place] [address] [place] [address] 04/22/2024 08:43:20 04/22/2024 09:20:08 Bilateral shoulder osteoarthritis 5137944610 67134 M19.011 Bilateral shoulder joint pain 4401029505 0406727 M25.511 M25.512 Pain of bi lateral knee joints 8935552362 10877 M25.561 M25.562 Osteoarthr itis of knee 271762120 M17.0 [id number] Carlos Reagan MD [facility] [place] [address] [place] [address] 07/25/2024 08:45:44 07/25/2024 09:35:22 Bilateral shoulder osteoarthritis 8024884060 56244 M19.011 Bilateral shoulder joint pain 8342282000 8173661 M25.511 M25.512 Pain of bi lateral knee joints 6957744416 31694 M25.561 M25.562 Osteoarthr itis of knee 764489161 M17.0 Osteoarthr itis of joint of left shoulder region 8393328382 87799 M19.012 Health Concerns Section Related Observation LastModified by Organization Detai ls LastModified Time None Recorded Concern Status LastModified by Organization Details LastModified Time None Recorded Advance Directives Directive None Recorded Payers Encounter Date Sequence Insurance Name Policy Number Policy Lyn Covered Member ID Lyn Member ID Guarantor Name 07/27/2023 1 [facility] - [employer] - [employer] - MEDICARE COMPLETE PLAN 2 (MEDICARE REPLACEMENT HMO) [id number] Korina A Coppotelli [id number] Korina Coppotelli 07/27/2023 2 [place] [facility] Korina Coppotelli [id number] Korina Coppotelli 10/20/2023 1 [facility] - [employer] - [employer] - MEDICARE COMPLETE PLAN 2 (MEDICARE REPLACEMENT HMO) [id number] Korina A Coppotelli [id number] Korina Coppotelli 10/20/2023 2 [place] [facility] Korina Coppotelli [id number] Korina Coppotelli 01/22/2024 1 [facility] - [employer] - [employer] - MEDICARE COMPLETE PLAN 2 (MEDICARE REPLACEMENT HMO) [id number] Korina A Coppotelli [id number] Korina Coppotelli 01/22/2024 2 [place] [facility] Korina Coppotelli [id number] Korina Coppotelli 04/22/2024 1 [facility] - [employer] - [employer] - MEDICARE COMPLETE PLAN 2 (MEDICARE REPLACEMENT HMO) [id number] Korina A Coppotelli [id number] Korinamaira Cavazos 04/22/2024 2 [place] [facility] Korina Cavazos [id number] Korina Cavazos 07/25/2024 1 [facility] [employer] - MEDICARE COMPLETE PLAN 2 (MEDICARE REPLACEMENT HMO) [id number] Korina Cavazos [id number] Korina Cavazos 07/25/2024 2 [place] [facility] Korina Cavazos [id number] Korina Cavazos Notes Date Note Type Note Provider Name and Address Organization Details Recorded Time 07/27/2023 text/html Patient returns complaining of bilateral shoulder pain and bilateral knee pain. She has severe primary osteoarthritis of all 4 joints. She has jwge-is-ifcn glenohumeral osteoarthritis with flattening of the humeral [...] no new trauma or injury. CARLY Navarro [address] [place] [address], [facility] [address], [place], [address], [facility] [employer] 07/27/2023 10:24:12 10/20/2023 text/html Patient returns requesting injections both knees both shoulders. She has severe primary osteoarthritis of all 4 joints. She has wgib-vk-dclh glenohumeral osteoarthritis with flattening of the humeral [...] or injury. CARLY Navarro [address], [facility] [address], [place], [address], [facility] [employer] 10/20/2023 11:47:20 01/22/2024 text/html The patient retu [...] with food. CARLY Navarro [address], [facility] [address], [place], [address], [facility] [employer] 01/22/2024 09:34:35 04/22/2024 text/html The patient retu [...] trauma or injury both shoulders also show gmcp-ju-tfor glenohumeral osteoarthritis. She does take diclofenac 75 mg b.i.d. with food she would like to have both knees and both shoulders injected again today. CARLY Navarro [address], [facility] [address], [place], [address], [employer] 04/22/2024 09:19:01 07/25/2024 text/html The patient retu rns requesting repeat cortisone injections both knees and both shoulders. She has severe mtyc-rz-vvmd primary osteoarthritis with varus deformities both knees [...] CARLY Navarro [address], [address], [place], [address], [employer] 07/25/2024 09:51:58 OBGyn Episode No OBEpisode recorded.
[2024-11-11] MEDS: ACETAMINOPHEN 500 MG TABLET 1000 MG PO (06:12)
[2024-11-11] MEDS: TRANEXAMIC ACID 1,000MG/ISO100 1,000 MG/100 ML BAG 200 MG IVPB (06:15)
[2024-11-11] MEDS: LACTATED RINGERS 1,000 ML 30 ML IV CONT ×2 (06:15→11:39)
[2024-11-11] MEDS: VANCOMYCIN 1,250 MG/NS 250 ML BAG 166.67 MG IVPB (06:30)
--- NOTE | 2024-11-11 07:06 | WPDHPUPDATE1 ---
History and Physical Update Update Date/Time: 11/11/24 07:06 History and Physical has been reviewed, including an updated exam of the patient. There are NO changes in the patient's condition. Risks, benefits, and alternatives have been discussed and questions answered. Patient agrees to proceed with procedure.
--- NOTE | 2024-11-11 07:21 | P.PNAN_ITS ---
Anes - Initial Pre Proc Eval Procedure: Operation Date: 11/11/24 07:30 Proposed Procedures p Right Total Knee Arthroplasty, Cortisone Injection Left Knee - Agusto Low MD Date/Time: 11/11/24 07:21 Surgeon: Agusto Low MD Pre Op Diagnosis: oa both knee's Patient Data Age: 79 Gender: F Height: 1.53 m Weight: 76.8 kg Last Vital Signs Temp 97.6 F 11/11/24 05:50 Pulse 80 11/11/24 05:50 Resp 18 11/11/24 05:50 BP 162/80 H 11/11/24 05:50 Pulse Ox 99 11/11/24 05:50 O2 Del Method Room Air 11/11/24 05:50 Allergies Allergy/AdvReac Type Severity Reaction Status Date / Time ibuprofen AdvReac Mild Skin Verified 11/11/24 06:04 Reaction lisinopril AdvReac Mild cough Verified 11/11/24 06:04 Home Medications ?Medication ?Instructions ?Recorded ?Confirmed ?Type glucosamine 500 mg-chondroit 400 1 cap PO DAILY 05/06/19 11/11/24 History mg-vit C 2 mg-kateryna 0.33 mg capsule ascorbic acid (vitamin C) 1,000 mg 1 g PO DAILY 09/02/20 11/11/24 History tablet omega 4-ypa-ugl-fish oil 1,200 mg 1 cap PO DAILY 09/02/20 11/11/24 History (144 mg-216 mg) capsule (Fish Oil) calcium polycarbophil 625 mg tablet 1,250 mg PO DAILY 02/20/23 11/11/24 History cholecalciferol (vitamin D3) 50 50 mcg PO DAILY 02/20/23 11/11/24 History mcg (2,000 unit) capsule psyllium husk 0.4 gram capsule 1.2 g PO BID 03/06/23 11/11/24 History (Metamucil) atorvastatin 10 mg tablet See Rx Instructions .Route 08/16/24 11/11/24 Rx .COMPLEX #100 tabs hydrochlorothiazide 12.5 mg tablet See Rx Instructions .Route 09/09/24 11/11/24 Rx .COMPLEX #50 tabs losartan 50 mg tablet See Rx Instructions .Route 09/09/24 11/11/24 Rx .COMPLEX #100 tabs magnesium oxide 400 mg PO DAILY 10/06/24 11/11/24 History acetaminophen 650 mg 1,300 mg PO Q12H PRN pain 10/22/24 11/06/24 History tablet,extended release (Tylenol Arthritis Pain) cyanocobalamin (vitamin B-12) 1,000 mcg PO DAILY 10/22/24 11/11/24 History 1,000 mcg capsule diclofenac sodium 75 mg 75 mg PO DAILY PRN pain 10/22/24 11/11/24 History tablet,delayed release docusate sodium 100 mg capsule 100 mg PO BID PRN constipation 10/22/24 11/06/24 History (Colace) celecoxib 100 mg capsule (Celebrex) 100 mg PO DAILY #7 caps 10/28/24 11/11/24 Rx Laboratory Tests 11/11/24 06:06 Blood Type A Negative Antibody Screen Pending Patient hx anesthesia problems: none Family hx anesthesia problems: none Results Review: All pre-operative results and documents have been reviewed as part of the pre- operative evaluation. [facility] Past Medical History Medical History Encounter for Pap cervical smear following prior abnormal smear Chronic kidney disease, stage 3 Arthritis Gastroesophageal reflux disease Hyperlipidemia Hypertension Prediabetes Surgical History Surgical History History of section Family History Family History Mother Diabetes mellitus Family history of cardiovascular disease Family history of genetic disorder Family history of coronary artery disease Father Hypertension Social History Social History Social History: Surrogate medical decision maker: Lucero Maldonado, daughter. Code status: Full code. Smoking status: Never smoker Second hand tobacco smoke exposure: No Alcohol intake: never Substance use: never Do You Feel Safe in your Home?: Yes Lack of Transportation: No Lack of Food: Never True Current Housing: I Have Housing Concerned About Future Housing: No Difficulty Paying Gas/Electric Bills: No Difficulty Paying for Meds: No Currently Unemployed: No Education: High School Diploma/GED Difficulty w/ Childcare or Family Care: No Living arrangements: with family Additional living arrangements comments: [facility] Spiritual care concerns: No Anes - Eval Final PreProcedure Day of Procedure 11/11/24 07:21 Patient weight: obese Heart: regular rate and rhythm Lungs: clear to auscultation Airway: Mallampati scale class II Neurological: alert and oriented Last oral intake: >/= 8 hours ASA classification: III Emergent: no Anesthetic plan: proceed Anesthesia type and monitoring: general ETT and standard monitoring Results Review: All pre-operative results and documents have been reviewed as part of the pre- operative evaluation. Informed Consent: The patient's anesthetic plan and its attendant risks and benefits were discussed with the patient/family/POA. Questions were solicited and answers provided to the satisfaction of the patient/family/POA.
[2024-11-11] MEDS: ceFAZolin 2 GM/D5W 50 ML 2 GM/50 ML BAG IVPB ×3 (07:29→23:09)
[2024-11-11] MEDS: LIDOCAINE 1% LOCAL INJ 10 ML VIAL 4 ML INFILTRATE (07:29)
[2024-11-11] MEDS: ceFAZolin SODIUM 1 GM VIAL 3 GM IRRIGATION (07:29)
[2024-11-11] MEDS: SODIUM CHLORIDE 0.9% IV 37.7 ML, MORPHINE SULFATE INJ (*CRX) 2 MG, ROPivacaine HCL 1% 2... INFILTRATE (07:29)
[2024-11-11] MEDS: methylPREDNISolone ACETATE 80 MG/ML VIAL IM (07:29)
[2024-11-11] MEDS: GENTAMICIN BONE CEMENT REFOBACIN 1 EACH TOPICAL (10:15)
[2024-11-11] MEDS: ceFAZolin SODIUM 1 GM VIAL 2 GM IV PUSH (10:26)
[2024-11-11] MEDS: TRANEXAMIC ACID 1,000 MG/10 ML AMPUL 1000 MG IV PUSH (10:27)
--- NOTE | 2024-11-11 11:44 | P.OP_ITS ---
Procedure Note - Detailed Date of Procedure 11/11/24 Pre-op Diagnosis oa both knee's Post-op Diagnosis Same Procedure Performed Cortisone injection left knee, right total knee arthroplasty Surgeon Agusto Low MD Clam Shucking Machine Tender Delfin Junior Anesthesia General Description of Procedure Patient was brought to the operating room and general anesthesia was administered. She received 2 g of Ancef weight based vancomycin 1 g of TXA preoperatively. The left knee was prepped with ChloraPrep and 80 mg of Depo-Medrol 4 cc 1% lidocaine were injected into the left knee joint through a lateral parapatellar approach without difficulty. The right knee was prepped draped usual fashion. Under anesthesia her flexion was limited to 70?. She had about a 5 degree flexion contracture. There was pronounced laxity at 20? of flexion both medially and laterally. Limb was exsanguinated tourniquet elevated to 300 mmHg. An 8 in longitudinal incision was made in a standard parapatellar arthrotomy utilized. Patella had large hypertrophic osteophytes which were debrided. It had mostly intact a rticular cartilage and I thought it would be appropriate for non resurfacing. A guide octaviano was inserted on femoral canal after aspiration of canal contents using the jig set at 5? valgus, 7 mm of bone removed the distal femur. We only removed 7 mm because of wear both medially and laterally. Next the tibial plateau was cut. Our goal was to make a skim cut off the low point of the medial tibial plateau. Provisional was about 2 mm proud so we removed an additional 2 mm of bone which gave us a flush cut relative to the low point of the central medial tibial plateau or the where area was. We tried to cut perpendicular to the axis in the sagittal plane and 1 degree of varus in the coronal plane. A Bone quality in the distal femur and tibial plateau was very good. Meniscal remnants were excised the PCL was recessed. We did not perform a posterior capsular release. Flexion gap was a snug 8 mm medially and 10 mm laterally. The femoral sizing guide was applied the distal femur set at 3? of external rotation which matched Whitesides line and posterior referencing pinholes were placed. The size 62.5 look like it would notch a little bit so we applied the 65 cutting block AP and chamfer cuts were made this gave a flush cut anteriorly. The femoral trial was about a mm wider than the with the condyles distally. The tibia was prepared using the size 71 vanguard tibial tray which at proper rotation fit line to line posterolateral to anteromedial. This looked left large medial osteophyte posteromedially and medially. We removed osteophyte posteromedially that was not attached to ligamentous tissue. Mid medial osteophytes had ligament attached and we did not take this down at this time. We trialed with the 10 which was snug at 90? of flexion but somewhat loose medially and laterally in extension. The size 11 gave more appropriate stability in extension but was too tight in flexion. The size 12 was far too tight in flexion and gave normal stability feels extension. We removed the very large posterior femoral osteophytes were present both medially and laterally proximal to the condyles posteriorly. On read trialing this as expected did not increase the flexion gap. With the 10 insert we had mm each of medial lateral opening at 90? with a Fatima elevator so I thought her rotation was appropriate. Since the femoral component was a little bit too wide I elected to downsize to the 62.5. In doing so, we translated the cutting block 1.5 mm anteriorly and pinned this with the threaded pins removed posterior condylar and the anterior condylar bone posterior chamfer revisited and the 62.5 fit snugly and was just under line to line distally and remained essentially flush with the anterior cortex of was a much better fit. With this the 11 was appropriate at 90? to anterior posterior drawer but I felt we were still a little bit loose in extension the 11 . On the back table I manufactured 1.5 mm cancellous she him was made from the anterior chamfer wafer and thoroughly irrigated the bone surfaces with Ancef solution and placed these on the ends of the distal femoral condyles and with this in place on trialing with the 11 had an extension 1-2 mm of medial opening 3 mm of her ring and appropriate AP stability at in all positions and I was satisfied with this. The knee came out to full extension with negative bounce. We drilled the lug hole drills. We revisited the contouring of the posterior femoral condyles so there would be no impingement in deep flexion. As the tourniquet had been put down at 90 minutes, the limb was exsanguinated tourniquet elevated again to 300 mmHg. The bony surfaces were thoroughly irrigated and dried. Two batches of methylmethacrylate were mixed 1 with gentamicin powder and the cement applied to the 71 tibial component and then cement applied to the 62.5 femoral component with the previously mentioned shims which were again irrigated with antibiotic solution and dried and applied to the femoral component which was coated with cement. Cement was applied the tibial plateau pressurized tibial component fully seated cement applied the femur the femoral component fully seated and brought to extension with a 12 mm 5 and 1 insert. The brought into extension for pressurization tourniquet released total tourniquet time proximal 105 minutes. After cement hardening excess cement was sought for removed and hemostasis was achieved. We trialed with the 11. Patellar tracking was central but she had relative patella baja and with gravity flexion to 125 extending it from this position resulted in superior edge of the patella catching posterior edge of the trochlear groove anterior to trochlear notch gap in the femoral component and this was repeatable. Therefore was clear that resurfacing the patella be necessary. It measured 23 mm thickness and was cut to 16.5 mm. This was thoroughly irrigated dried and we cemented the 6.2 by 31 mm patella which fit line to line proximal distal. 1/2 batch of quick set cement was utilized for this. After cement hardening patellar tracking was then perfect. Rex flexion was to between 125 and 130 ?. Local anesthetic cocktail was injected in the periarticular soft tissues and the wound again irrigated thoroughly with Ancef solution size 11 insert was placed locked with a locking pin range of motion stability patellar tracking reconfirmed. Arthrotomy was closed 2. Vicryl and 1. Unidirectional barbed Stratafix suture. Rex flexion was still almost 130? full extension same stability as above. Skin closed with 2 subcutaneous Vicryl 3-0 subcuticular Monocryl and glue EBL was 200 cc. Two additional g of Ancef and 1 g of TXA given time wound closure. There were no complications. She was transferred to postop recovery room in stable condition. [facility] [place] [place] Billing Surgery - Charge Forward: Surgery Billing (Cortisone injection left knee, right total knee replacement)
--- NOTE | 2024-11-11 11:48 | PM.OP ---
Procedure Note - Brief Procedure Note - Brief Date of procedure: 11/11/24 oa both knee's Procedure performed: Right total knee arthroplasty Surgeon: CARLY Faria Findings: 79-year-old female underwent right total knee arthroplasty on 11/11. I was involved in the procedure including positioning the patient on the OR table in 1st assisting through the time surgery. Total time spent was 3-1/2 hours
[2024-11-11] MEDS: fentaNYL CITRATE INJ (*CRX) 100 MCG/2 ML VIAL 25 MCG IV PUSH ×2 (12:05→12:15)
[2024-11-11] MEDS: SODIUM CHLORIDE 0.9% IV 1,000 ML 125 ML IV CONT (13:26)
[2024-11-11] MEDS: ONDANSETRON INJ 4 MG/2 ML VIAL IV PUSH (13:33)
--- NOTE | 2024-11-11 13:44 | ADMGEN ---
This patient, Korina Cavazos, was admitted to 3 [facility] Surg Room 311-01. Patient/family oriented to hospital policies and general routines including ID bracelet, bed and alarms, visiting hours, pain management, procedures, bathroom and other care routines, personal items, smoking policy, room service/diet, and visiting hours. Information on how to activate the Rapid Response Team has been discussed. Patient/Family are encouraged to report perceived risks to care and to ask questions if they do not understand what they are told or what they should do. report received from
[2024-11-11] MEDS: ACETAMINOPHEN 325 MG TABLET 650 MG PO ×3 (14:36→20:21)
[2024-11-11] MEDS: oxyCODONE HCL (*CRX) 2.5 MG TAB IR PO ×3 (14:37→20:21)
--- NOTE | 2024-11-11 16:32 | PM.IMCN ---
Assessment and Plan Assessment and plan (1) Status post total right knee replacement: Code(s): Z96.651 - Presence of right artificial knee joint Status: Acute (2) Mixed hyperlipidemia: Code(s): E78.2 - Mixed hyperlipidemia Status: Acute (3) Essential (primary) hypertension: Code(s): I10 - Essential (primary) hypertension Status: Chronic (4) Obesity: Qualifiers: Body mass index: BMI 32.0-32.9 Obesity classification: adult class 1 (BMI 30 - 34.9) Obesity type: due to excess calories Serious obesity comorbidity presence: with serious comorbidity Qualified Code(s): E66.811 - Obesity, class 1; E66.09 - Other obesity due to excess calories; Z68.32 - Body mass index [BMI] 32.0-32.9, adult Code(s): E66.9 - Obesity, unspecified Status: Acute Plan Patient is postop day 0 from right total knee arthroplasty. Postop management and pain management per primary service. DVT prophylaxis per primary service. Her blood pressure is stable. Will resume home antihypertensives. She does have a history of diastolic dysfunction without history of heart failure but appears overall euvolemic. She has chronic kidney disease but her creatinine is at baseline. Patient is on NSAID therapy at home with Celebrex. We would avoid additional NSAIDs to reduce risk of acute kidney injury. Patient does have history of mildly elevated calcium in the past in her calcium preop was just above the cutoff for normal. She is receiving vitamin-D supplementation. No need for acute evaluation or treatment. Patient is stable from medical perspective in the hospitalist service will sign off please feel free to contact us if any issues arise during her hospitalization. HPI Date of Consult Consult date: 11/11/24 Requesting Physician: Agusto Low MD Primary Care Provider: Lucero Frederick DO Consult Narrative Narrative: Korina Cavazos is a 79 year old female with a past medical history of obesity, essential hypertension and diastolic dysfunction who presented to the hospital for an elective right total knee arthroplasty. The patient underwent right total knee arthroplasty under general anesthesia without complications. Postoperatively patient had mild nausea but at the time my evaluation she is sitting up in a chair and eating her lunch. Her family members are at bedside. The patient denies any chest pain shortness breast or palpitations. Her blood pressures have been stable since surgery. She has been voiding without difficulty. She reports no pain in her knee currently in reports that feels like that there is heavy block on her knee. She has been ambulating with physical therapy. She reports that she lost 40 lb in preparation for her surgery. She hopes she can keep the weight off postoperatively so that she will be ready for her left knee replacement when her rehab for her right knee is completed. She had a stress test preoperatively that was normal. Her care was discussed with her for family members were at bedside with the patient's permission. Review of Systems Review of Systems: 12 systems were reviewed with pertinent positives and negatives per HPI. Except as documented in the HPI, all other systems were reviewed and are negative. [facility] Past Medical History Medical History (Updated 11/11/24 @ 16:44 by Bhavna Moreno DO) Mixed hyperlipidemia Cervical radiculopathy Hepatic steatosis Osteopenia after menopause Vitamin D deficiency, unspecified Essential (primary) hypertension Diastolic dysfunction Encounter for Pap cervical smear following prior abnormal smear Chronic kidney disease, stage 3 Arthritis Gastroesophageal reflux disease Prediabetes Surgical History Surgical History History of section Family History Family History Mother Diabetes mellitus Family history of cardiovascular disease Family history of genetic disorder Family history of coronary artery disease Father Hypertension Social History Social History (Updated 11/11/24 @ 18:55 by Bhavna Moreno DO) Social History: Surrogate medical decision maker: Lucero Maldonado, daughter. Code status: Full code. Smoking status: Never smoker Second hand tobacco smoke exposure: No Alcohol intake: former Substance use: never Substance use type: does not use Do You Feel Safe in your Home?: Yes Lack of Transportation: YES Lack of Food: Never True Current Housing: I Have Housing Concerned About Future Housing: No Difficulty Paying Gas/Electric Bills: No Difficulty Paying for Meds: No Currently Unemployed: No Education: Decline to Answer Difficulty w/ Childcare or Family Care: No Living arrangements: with family Additional living arrangements comments: [facility] Spiritual care concerns: No Meds Home Medications and Allergies Home Medications ?Medication ?Instructions ?Recorded ?Confirmed ?Type glucosamine 500 mg-chondroit 400 1 cap PO DAILY 05/06/19 11/11/24 History mg-vit C 2 mg-kateryna 0.33 mg capsule ascorbic acid (vitamin C) 1,000 mg 1 g PO DAILY 09/02/20 11/11/24 History tablet omega 3-hlf-nsg-fish oil 1,200 mg 1 cap PO DAILY 09/02/20 11/11/24 History (144 mg-216 mg) capsule (Fish Oil) calcium polycarbophil 625 mg tablet 1,250 mg PO DAILY 02/20/23 11/11/24 History cholecalciferol (vitamin D3) 50 50 mcg PO DAILY 02/20/23 11/11/24 History mcg (2,000 unit) capsule psyllium husk 0.4 gram capsule 1.2 g PO BID 03/06/23 11/11/24 History (Metamucil) atorvastatin 10 mg tablet See Rx Instructions .Route 08/16/24 11/11/24 Rx .COMPLEX #100 tabs hydrochlorothiazide 12.5 mg tablet See Rx Instructions .Route 09/09/24 11/11/24 Rx .COMPLEX #50 tabs magnesium oxide 400 mg PO DAILY 10/06/24 11/11/24 History acetaminophen 650 mg 1,300 mg PO Q12H PRN pain 10/22/24 11/06/24 History tablet,extended release (Tylenol Arthritis Pain) cyanocobalamin (vitamin B-12) 1,000 mcg PO DAILY 10/22/24 11/11/24 History 1,000 mcg capsule docusate sodium 100 mg capsule 100 mg PO BID PRN constipation 10/22/24 11/06/24 History (Colace) celecoxib 100 mg capsule (Celebrex) 100 mg PO DAILY #7 caps 10/28/24 11/11/24 Rx diclofenac sodium 75 mg 75 mg PO DAILY PRN pain #90 tabs 11/11/24 11/11/24 Rx tablet,delayed release losartan 50 mg tablet See Rx Instructions .Route 11/11/24 11/11/24 Rx .COMPLEX #100 tabs Allergies Allergy/AdvReac Type Severity Reaction Status Date / Time ibuprofen AdvReac Mild Skin Verified 11/11/24 13:51 Reaction lisinopril AdvReac Mild cough Verified 11/11/24 13:51 Vital Signs Vital Signs - 24 hr 11/11/24 05:50 11/11/24 11:39 11/11/24 11:50 Temperature 97.6 F 99.3 F Pulse Rate 80 74 66 Respiratory Rate 18 15 16 Blood Pressure 162/80 H 141/91 H 154/62 H Pulse Oximetry 99 100 100 Oxygen Delivery Room Air Simple Face Mask Simple Face Mask Oxygen Flow Rate 8 8 11/11/24 12:05 11/11/24 12:20 11/11/24 12:35 Temperature Pulse Rate 64 71 68 Respiratory Rate 12 20 12 Blood Pressure 157/61 H 149/62 H 154/63 H Pulse Oximetry 100 97 95 Oxygen Delivery Simple Face Mask Room Air Room Air Oxygen Flow Rate 8 11/11/24 12:50 11/11/24 13:05 11/11/24 13:12 Temperature 97.5 F L Pulse Rate 70 67 71 Respiratory Rate 14 12 12 Blood Pressure 154/65 H 148/70 H 164/69 H Pulse Oximetry 93 96 100 Oxygen Delivery Room Air Room Air Oxygen Flow Rate 11/11/24 13:27 11/11/24 13:57 11/11/24 14:22 Temperature 97.6 F 97.9 F Pulse Rate 73 80 Respiratory Rate 12 12 Blood Pressure 151/73 H 135/59 L Pulse Oximetry 100 99 Oxygen Delivery Room Air Oxygen Flow Rate 11/11/24 14:57 Temperature 98 F Pulse Rate 84 Respiratory Rate 12 Blood Pressure 130/68 Pulse Oximetry 99 Oxygen Delivery Oxygen Flow Rate Exam Narrative: Weight 76.8 kg BMI 32.8 Const: Other: No acute distress, obese, appears stated age, sitting up in chair with both legs straight out in elevated on another chair HENMT: Other: Head is normocephalic atraumatic, pupils are equal and reactive, no scleral icterus, no conjunctival pallor Eyes: Other: See above Neck: Other: No JVD, no lymphadenopathy Resp: Other: Clear to auscultation bilaterally, no increased work of breathing Cardio: Other: Regular rate, regular rhythm, 2+ bilateral radial pedal pulses GI: Other: Soft, nontender, nondistended, positive bowel sounds Skin: Other: No jaundice, no pallor Neuro: Other: Alert oriented, speech is clear, no facial asymmetry, no localizing neurologic deficits noted during the course of conversation Extrem: Other: No clubbing, cyanosis or edema, right knee is dressed in postop dressing with dressing clean dry and intact Psych: Other: Appropriate mood and affect, pleasant and cooperative, judgment and insight intact Results Labs Labs: Outpatient labs from 10/22/2024 reviewed White count 7.5 hemoglobin 12.1 platelet count 281 PT 13.6 INR 1 PTT 26.6 Sodium 141 potassium 4.2 chloride 105 CO2 26 BUN 17 creatinine 1 GFR 54 glucose 117 calcium 10.6 Postop knee x-ray: DATE: 11/11/2024 11:51 INDICATION: Status post right total knee arthroplasty TECHNIQUE: AP and crosstable lateral views of the right knee were obtained. COMPARISON: None. FINDINGS: Right total knee arthroplasty with patellar resurfacing which appears well seated in near-anatomic alignment. No fracture. Expected postoperative intra-articular, intramedullary and surrounding soft tissue gas. IMPRESSION: 1. Expected appearance post right total knee arthroplasty, negative for postoperative purposes. Hospitalist MIPS Advance Care Plan I have confirmed that the patient's Advanced Care Plan is present, code status is documented, or surrogate decision maker is listed in patient medical record.: Yes Medication Reconciliation I have utilized all available resources to obtain, update and review the patients current medications (includes all prescriptions, OTC, herbals, cannabis, and nutritional supplements).: Yes
[2024-11-11] MEDS: VANCOMYCIN 1,000 MG/NS 250 ML 1,000 MG/250 ML BAG 250 MG IVPB (16:59)
[2024-11-11] MEDS: SENNA/DOCUSATE SODIUM TABLET 2 TAB PO (16:59)
[2024-11-11] MEDS: FAMOTIDINE 20 MG TABLET PO (20:21)
[2024-11-12] MEDS: ACETAMINOPHEN 325 MG TABLET 650 MG PO ×3 (02:03→09:03)
[2024-11-12] MEDS: oxyCODONE HCL (*CRX) 2.5 MG TAB IR PO ×3 (02:03→09:03)
[2024-11-12 02:04] VITALS: BP 137/50; PULSE 69; RESP 14; TEMP 36.3; O2SAT 99
[2024-11-12] MEDS: VANCOMYCIN 1,000 MG/NS 250 ML 1,000 MG/250 ML BAG 250 MG IVPB (05:01)
[2024-11-12] MEDS: ceFAZolin 2 GM/D5W 50 ML 2 GM/50 ML BAG IVPB (06:05)
[2024-11-12 06:11] VITALS: BP 111/52; PULSE 59; RESP 16; TEMP 36.5; O2SAT 95
[2024-11-12 06:13] LABS: Anion Gap 5 mmol/L (4-12); Blood Urea Nitrogen 19 mg/dL (7-17); Calcium 9.3 mg/dL (8.4-10.2); Carbon Dioxide 24 mmol/L (22-30); Chloride 106 mmol/L (98-107); Estimated CRCL calculation 39 ml/min; Estimated Glomerular Filt Rate 54; Glucose 112 mg/dL (65-110); Potassium 4.9 mmol/L (3.4-5.0); Sodium 135 mmol/L (137-145)
[2024-11-12 06:39] LABS: Basophils Percent Auto 0.2 % (0.2-1.2); Hematocrit 29.7 % (37.0-47.0); Hemoglobin 9.3 g/dL (12.0-15.0); Immature Granulocyte Absolute 0.04 K/mm3 (0.00-0.031); Immature Granulocyte Percent A 0.3 % (0-0.5); Lymphocytes Absolute Auto 1.16 K/mm3 (0.9-3.2); Lymphocytes Percent Auto 9.3 % (18.3-44.2); Mean Corpuscular HGB Conc 31.3 g/dl (32-36); Mean Corpuscular Hemoglobin 30.2 pg (26-34); Mean Corpuscular Volume 96.4 fl (80-100); Mean Platelet Volume 9.9 fl (7.4-10.4); Monocytes Absolute Auto 0.9 K/mm3 (0.1-0.6); Monocytes Percent Auto 7.3 % (2.6-8.5); Neutrophils Absolute Auto 10.4 K/mm3 (1.3-6.7); Neutrophils Percent Auto 82.9 % (45.5-73.1); Platelet Count Result 173 k/mm3 (150-375); Red Blood Count 3.08 M/mm3 (4.2-5.4); Red Cell Distribution Width 13.6 % (11.5-14.5); White Blood Count 12.5 K/mm3 (4.5-10.0)
--- NOTE | 2024-11-12 07:35 | P.PNOP_ITS ---
Subjective Subjective Date/Time Seen: 11/12/24 07:35 Interval history: Postop day 1 patient is labs noted. She has a anemia, she is having no symptoms from it. Patient was up walking with physical therapy and was doing very well. Pain is well controlled. Dressing dry and intact. Patient is neurovascularly intact. Overall patient is doing very well is anxious to go home. Will plan to have the patient work with therapy this morning and if she continued to do well she will be discharged to home Objective Data Vital Signs Vital Signs: Vital Signs - 24 hr 11/11/24 11:39 11/11/24 11:50 11/11/24 12:05 Temperature 99.3 F Pulse Rate 74 66 64 Respiratory Rate 15 16 12 Blood Pressure 141/91 H 154/62 H 157/61 H Pulse Oximetry 100 100 100 Oxygen Delivery Simple Face Mask Simple Face Mask Simple Face Mask Oxygen Flow Rate 8 8 8 11/11/24 12:20 11/11/24 12:35 11/11/24 12:50 Temperature Pulse Rate 71 68 70 Respiratory Rate 20 12 14 Blood Pressure 149/62 H 154/63 H 154/65 H Pulse Oximetry 97 95 93 Oxygen Delivery Room Air Room Air Room Air Oxygen Flow Rate 11/11/24 13:05 11/11/24 13:12 11/11/24 13:27 Temperature 97.5 F L 97.6 F Pulse Rate 67 71 73 Respiratory Rate 12 12 12 Blood Pressure 148/70 H 164/69 H 151/73 H Pulse Oximetry 96 100 100 Oxygen Delivery Room Air Oxygen Flow Rate 11/11/24 13:57 11/11/24 14:22 11/11/24 14:57 Temperature 97.9 F 98 F Pulse Rate 80 84 Respiratory Rate 12 12 Blood Pressure 135/59 L 130/68 Pulse Oximetry 99 99 Oxygen Delivery Room Air Oxygen Flow Rate 11/11/24 18:50 11/11/24 20:00 11/11/24 22:39 Temperature 98.5 F Pulse Rate 84 79 Respiratory Rate 12 16 Blood Pressure 128/66 137/66 Pulse Oximetry 100 99 Oxygen Delivery Room Air Oxygen Flow Rate 11/11/24 23:02 11/12/24 02:04 11/12/24 06:11 Temperature 97.4 F L 97.7 F Pulse Rate 69 59 L Respiratory Rate 14 16 Blood Pressure 137/50 L 111/52 L Pulse Oximetry 99 99 95 Oxygen Delivery Room Air Oxygen Flow Rate Intake/Output Intake/Output: Intake & Output 11/09/24 11/10/24 11/11/24 11/12/24 23:59 23:59 23:59 23:59 Intake Total 1450 650 Balance 1450 650 Meds/Results Medications: Active Medications Generic Name Dose Route Start Last Admin Trade Name Freq PRN Reason Stop Dose Admin Acetaminophen 650 mg 11/11/24 14:00 11/12/24 05:01 Acetaminophen 325 Mg Tablet PO 650 mg Q4H TIMOTHY Administration Al Hydrox/Mg Hydrox/Simethicone 30 ml 11/11/24 16:36 Mag Hydrox/Al Hydrox/Simeth 30 Ml Udc PO Q6H PRN Indigestion Apixaban 2.5 mg 11/12/24 09:00 Apixaban 2.5 Mg Tablet PO 11/23/24 21:01 Q12HR TIMOTHY Atorvastatin Calcium 10 mg 11/12/24 09:00 Atorvastatin 10 Mg Tablet BY MOUTH DAILY TIMOTHY Cefdinir 300 mg 11/12/24 09:00 Cefdinir 300 Mg Capsule PO Q12HR TIMOTHY Celecoxib 100 mg 11/12/24 08:00 Celecoxib 100 Mg Capsule PO DAILY@0800 [facility] Diphenhydramine HCl 25 mg 11/11/24 13:12 Diphenhydramine Hcl Inj 50 Mg/Ml Vial IV PUSH Q6H PRN Itching Famotidine 20 mg 11/11/24 21:00 11/11/24 20:21 Famotidine 20 Mg Tablet PO 20 mg Q12HR TIMOTHY Administration Hydrochlorothiazide 6.25 mg 11/12/24 09:00 Hydrochlorothiazide 6.25 Mg Tablet PO QAM TIMOTHY Morphine Sulfate 2 mg 11/11/24 13:12 Morphine Sulfate (*Crx) 2 Mg/Ml Inj IV PUSH Q2H PRN Breakthrough Pain Rated 4-6 or NPO Naloxone HCl 0.1 mg 11/11/24 13:12 Naloxone Hcl 0.4 Mg/Ml Vial IV PUSH Q2M PRN Opiate Reversal Ondansetron HCl 4 mg 11/11/24 13:12 11/11/24 13:33 Ondansetron Inj 4 Mg/2 Ml Vial IV PUSH 4 mg Q4H PRN Administration Nausea And Vomiting Oxycodone HCl 2.5 mg 11/11/24 14:00 11/12/24 05:01 Oxycodone Hcl (*Crx) 2.5 Mg Tab Ir PO 2.5 mg Q4H TIMOTHY Administration Oxycodone HCl 2.5 mg 11/11/24 13:12 Oxycodone Hcl (*Crx) 2.5 Mg Tab Ir PO Q4H PRN Pain Rated 4-6 Polyethylene Glycol 17 gm 11/12/24 09:00 Polyethylene Glycol 3350 17 Gm Powd.Pack PO QAM TIMOTHY Senna/Docusate Sodium 2 tab 11/11/24 17:00 11/11/24 16:59 Senna/Docusate Sodium Tablet PO 2 tab BID TIMOTHY Administration Vitamin D 50 mcg 11/12/24 09:00 Cholecalciferol (Vitamin D3) 25 Mcg (1,000 Units) Tablet PO DAILY [facility] Radiology Results: ITS Impressions Knee X-Ray 11/11/24 12:46 IMPRESSION: 1. Expected appearance post right total knee arthroplasty, negative for postoperative purposes. Labs Labs: Laboratory Results - last 24 hr 11/12/24 05:38 WBC 12.5 H RBC 3.08 L Hgb 9.3 L Hct 29.7 L MCV 96.4 MCH 30.2 MCHC 31.3 L RDW 13.6 Plt Count 173 MPV 9.9 Immature Gran % (Auto) 0.3 Neut % (Auto) 82.9 H Lymph % (Auto) 9.3 L [place] % (Auto) 7.3 Eos % (Auto) 0.0 Baso % (Auto) 0.2 Lymph # (Auto) 1.16 [place] # (Auto) 0.9 H Eos # (Auto) 0.0 Baso # (Auto) 0.0 Abs Immat Gran (auto) 0.04 H Absolute Neuts (auto) 10.4 H Absolute Nucleated RBC 0.000 Nucleated RBC % 0.0 Sodium 135 L Potassium 4.9 Chloride 106 Carbon Dioxide 24 Anion Gap 5 BUN 19 H Creatinine 0.99 Estim Creat Clear Calc 39 Estimated GFR 54 L Glucose 112 H Calcium 9.3
[2024-11-12] MEDS: polyethylene glycoL 3350 17 GM POWD.PACK PO (08:55)
[2024-11-12] MEDS: CHOLECALCIFEROL (VITAMIN D3) 25 MCG (1,000 UNITS) TABLET 50 MCG PO (08:55)
[2024-11-12] MEDS: SENNA/DOCUSATE SODIUM TABLET 2 TAB PO (08:55)
[2024-11-12] MEDS: FAMOTIDINE 20 MG TABLET PO (08:56)
[2024-11-12] MEDS: CEFDINIR 300 MG CAPSULE PO (08:56)
[2024-11-12] MEDS: APIXABAN 2.5 MG TABLET PO (08:57)
[2024-11-12] MEDS: CELECOXIB 100 MG CAPSULE PO (08:57)
[2024-11-12] MEDS: ATORVASTATIN 10 MG TABLET BY MOUTH (08:57)
[2024-11-12] MEDS: hydroCHLOROthiazide 6.25 MG TABLET PO (09:03)
[2024-11-12 10:57] VITALS: BP 138/64; PULSE 78; RESP 18; TEMP 36.3; O2SAT 98
== END 2024-11-12 12:11 | disposition home or self-care (01) ==
LOC: ANHSURGERY 05:50 → ANH3MEDSUR 13:15
PROVIDERS: Physician Assistant Surgical; PCP Family Medicine; Visit Provider Orthopaedic Surgery
PROC: (CPT 27447; principal; 2024-11-11 07:30)
DX: M17.0 Bilateral primary osteoarthritis of knee (principal); I12.9 Hypertensive chronic kidney disease with stage 1 through stage 4 chronic kidney disease, or unspecified chronic kidney disease; N18.30 Chronic kidney disease, stage 3 unspecified; D63.1 Anemia in chronic kidney disease; E78.2 Mixed hyperlipidemia; K21.9 Gastro-esophageal reflux disease without esophagitis; R73.03 Prediabetes; E66.9 Obesity, unspecified; Z68.32 Body mass index [BMI] 32.0-32.9, adult
CPT/HCPCS: 27447; 20610; 36415; 73560; 80048; 85025; 86850; 86900; 86901; 97110; 97116; 97161; 97165; 97530; 97535; A9270; C1713; C1776; J0171; J0690; J1010; J1100; J1885; J2003; J2270; J2405; J2704; J2795; J3010; J3370; J7030; J7120

== ENCOUNTER 2024-11-18 15:38 | Outpatient (CLI) | payer MEDICARE, MEDICAID, SELFPAY ==
--- NOTE | ~2024-11-18 | US_ITS ---
RIGHT LOWER EXTREMITY VENOUS ULTRASOUND Ordering provider: SEAN SchreiberC History: . M79.89 - Other specified soft tissue disorders . Comparison: None. FINDINGS: --COMMON FEMORAL: Patent and free of thrombus. Normal compressibility, phasic flow and augmentation. --PROXIMAL SUPERFICIAL FEMORAL: Patent and free of thrombus. Normal compressibility, phasic flow and augmentation. --DISTAL SUPERFICIAL FEMORAL: Patent and free of thrombus. Normal compressibility, phasic flow and au gmentation. --POPLITEAL: Patent and free of thrombus. Normal compressibility, phasic flow and augmentation. --POSTERIOR TIBIAL: Patent and free of thrombus. Normal compressibility, phasic flow and augmentation . IMPRESSION: Negative right lower extremity venous US. No deep vein thrombosis. Reviewed, dictated and finalized at location A.
--- OUTSIDE RECORDS SUMMARY | 2024-11-18 16:27 | XMS_ITS | Clinical Summary ---
Author Organization [facility] Address [address] [place] [address] Care Team Providers Care Admission Specialist Name Role Phone Unavailable Primary Care Provider [...]
== END 2024-11-18 15:39 | disposition home or self-care (01) ==
PROVIDERS: PCP Family Medicine; Visit Provider Nurse Practitioner
DX: M79.89 Other specified soft tissue disorders (principal)
CPT/HCPCS: 93971

== ENCOUNTER 2024-12-17 10:00 | Outpatient (RCR) | payer MEDICARE, MEDICAID, SELFPAY ==
--- NOTE | 2024-11-14 10:04 | OPREHPOC ---
Outpatient Therapy Plan of Care This is a Multidisciplinary Plan of Care that may contain components documented by all disciplines (PT, OT, and ST.) PT Problem 1 PT Problem #1 Knowledge Deficit PT Goal 1 Goal / Goal Update 1* independent with HEP 2* correct use of assistive device with good gait pattern Target Visit 10 PT Problem 2 PT Problem #2 Pain PT Goal 1 Goal / Goal Update * pt report pain rating of 4/10 at worst Target Visit 10 PT Problem 3 PT Problem #3 Impaired Range of Motion PT Goal 1 Goal / Goal Update increase R knee ROM to improve transfer and gait skills: in sitting, active knee 1* extension 0' 2* flexion 120' Target Visit 10 PT Problem 4 PT Problem #4 Impaired Strength PT Goal 1 Goal / Goal Update improve strength of R LE, to improve mobility skills: 1* gross strength R hip and knee 4+/5 2* with walking, knee extension 0' with stance phase 3* sit/stand without use of UE x 5 reps Target Visit 10 PT Problem 5 PT Problem #5 Impaired Functional Mobility PT Goal 1 Goal / Goal Update 1* pt up/down 12 steps with one hand railing 2* 2 minute walking test distance of 450' with cane 3* pt report walking/ going out into community Target Visit 10
--- NOTE | 2024-11-14 10:04 | PTOPEVAL1 ---
Assessment and note entered by Elizabeth Galvez, PT Evaluation Information Assessment Status Evaluation ICD-10 Condition Codes (PT) Pain in right knee M25.561,Difficulty Walking R26. 2,Abnormalities of gait and mobility R26.9, Weakness R53.1,Aftercare following joint replacement surgery Z47.1 Onset 11-11-24 Subjective Information had R TKR 11-11-24; is walking OK around the house, have been able to take a shower and get dressed herself; have been doing the exercises but knee really hurts when doing them & not sure she is doing them right; also have pain in L knee- received injection during surgery and it helped activity: home with , one level home with one entry step; did not use assistive device prior to surgery; active prior to surgery; Reported Pain Level Pain Score Self Report Additional Pain Score Comments past few days 8-03/21 decrease pain: hydrocodone and tylenol, every 4 hours Assessment PT Clinical Summary Sissy is 3 days post op R TKR. Prior to surgery, she did not use an assistive device and was active , at home with her . LE functional scale rating of 80% limitation in activity level. She has been using the wheeled walker and doing her exercises since home from the hospital. Also have L knee arthritis. With the evaluation: R knee ROM 0-110' with stretching; 2 minute walking test distance with wheeled walker 320'; sit/stand transfer with both UE's, 5 reps in 13 seconds; gait pattern with decreased hip and knee flexion; strength of R knee 3+/5. Skilled PT services are indicated for modalities to decrease pain, therapeutic exercises to increase R knee ROM and strength, gait and transfer training, with education for progression of HEP. Plan of Care Interventions Intermittent Compression Pump,Manual Therapy,Neuro Re-education,Patient/Caregiver Education, Therapeutic Activities,Therapeutic Exercise,Other Other Interventions taping PT Services Indicated Yes Treatment Frequency and 2x/wk for 10 visits Duration These treatments will address the objective and functional deficits as defined above. The patient will be advanced safely and appropriately in order for the patient to progress towards his/her prior level of function. Additional exercises will be introduced and as well as a comprehensive home exercise program upon discharge, if needed, ?to ensure carryover of functional gains achieved in the clinic. This treatment plan has been reviewed and agreement upon by the patient.
--- NOTE | 2024-12-17 10:53 | OPREHPOC ---
Outpatient Therapy Plan of Care This is a Multidisciplinary Plan of Care that may contain components documented by all disciplines (PT, OT, and ST.) PT Problem 1 PT Problem #1 Knowledge Deficit PT Goal 1 Goal / Goal Update 1* independent with HEP 2* correct use of assistive device with good gait pattern 12-17-24 d/c goals met Target Visit 10 Progress Met PT Problem 2 PT Problem #2 Pain PT Goal 1 Goal / Goal Update * pt report pain rating of 4/10 at worst 12-17-24 d/c goal met Target Visit 10 Progress Met PT Problem 3 PT Problem #3 Impaired Range of Motion PT Goal 1 Goal / Goal Update increase R knee ROM to improve transfer and gait skills: in sitting, active knee 1* extension 0' 2* flexion 120' 12-17-24 d/c goals met Target Visit 10 Progress Met PT Problem 4 PT Problem #4 Impaired Strength PT Goal 1 Goal / Goal Update improve strength of R LE, to improve mobility skills: 1* gross strength R hip and knee 4+/5 2* with walking, knee extension 0' with stance phase 3* sit/stand without use of UE x 5 reps 12-17-24 d/c goals met Target Visit 10 Progress Met PT Problem 5 PT Problem #5 Impaired Functional Mobility PT Goal 1 Goal / Goal Update 1* pt up/down 12 steps with one hand railing 2* 2 minute walking test distance of 450' with cane 3* pt report walking/ going out into community 12-17-24 d/c goals 1 & 3 met; #2 improved to 420' Target Visit 10 Progress Partially Met
--- NOTE | 2024-12-17 10:53 | PTOPDC ---
Assessment and note entered by Elizabeth Galvez, PT Assessment Status Discharge ICD-10 Condition Codes (PT) Pain in right knee M25.561,Difficulty Walking R26. 2,Abnormalities of gait and mobility R26.9, Weakness R53.1,Aftercare following joint replacement surgery Z47.1 Onset 11-11-24 Subjective Information R knee is doing good; L knee is causing pain and going to have L TKR- but not yet scheduled; using the cane to help the L knee to not hurt as much; feel like I need to practice the stairs again, having problems on them; have been doing all the knee exercises at home, on both legs, to get L knee ready for surgery; is doing everything at home; Reported Pain Level Pain Score 0: Self Report Additional Pain Score Comments no pain in R knee at all; L knee pain 11/19, taking pain pill for it; Assessment PT Clinical Summary Sissy has received 10 PT sessions. She has improved in all areas: NO pain reported in R knee; self assessment LE functional scale rating of 45% limitation in activity level; good strength of R hip and knee; 0-130' active knee ROM; 2 minute walking test distance of 420' without assistive device; 12 steps with one hand railing and single step pattern; independent with HEP; she is using a cane PRN due to L knee pain. The goals were achieved, except 2 minute walking distance. Discharge PT services. She is to continue with her HEP and performing on both legs, to prepare for other knee to have TKR. Plan of Care PT Services Indicated No
== END 2024-12-17 12:42 | disposition home or self-care (01) ==
LOC: ANHPT 10:00
PROVIDERS: PCP Family Medicine; Visit Provider Orthopaedic Surgery
DX: Z47.1 Aftercare following joint replacement surgery (principal); M17.0 Bilateral primary osteoarthritis of knee; Z96.651 Presence of right artificial knee joint
CPT/HCPCS: 97110; 97116; 97140; 97161; 97530

== ENCOUNTER 2025-02-03 08:13 | Outpatient (CLI) | payer MEDICARE, MEDICAID, SELFPAY ==
--- OUTSIDE RECORDS SUMMARY | 2025-02-03 08:28 | XMS_ITS | Clinical Summary ---
Author Organization [facility] Address [address] [place] [address] Care Team Providers Care Drug Department Worker Name Role Phone Unavailable Primary Care Provider Unavailabl e Social History Tobacco Use Types Packs/Day Years Used Date Smoking Tobacco: Never Assessed Comments Unknown Sex and Gender Information Value Date Recorded Sex Assigned at Not on file Legal Sex Female 12:09 PM CDT Gender Identity Not on file Sexual Orientation Not on file Plan of Treatment Health Maintenance Due Date Last Done Comments Hepatitis C Virus (HCV) Screening 1945 TdaP Immunization 1945 Zoster Immunization (1 of 2) 1997 Pneumococcal Immunization (50+ years) (2 of 2 - PCV20 or PCV21) 03/25/2016 03/25/2015 Respiratory Syncytial Virus (RSV) Immunization (Adult) (1 - 1-dose 75+ series) 2022 SARS-COV-2 Immunization (1 - season) 2024 Influenza Immunization (#1) 2025 100 11/2019, 05/06/2019, 04/23/2018, Additional history exists Pneumococcal Immunization Combined Discontinued 03/25/2015 Hepatitis B Immunization Aged Out No longer eligible based on patient's age to complete this topic Human Papillomavirus (HPV) Immunization Aged Out No longer eligible based on patient's age to complete this topic Meningococcal Immunization (ACWY) Aged Out No longer eligible based on patient's age to complete this topic Rotavirus Immunization Aged Out No lo nger eligible based on patient's age to complete this topic
[2025-02-03 10:17] LABS: Hematocrit 41.2 % (37.0-47.0); Hemoglobin 12.9 g/dL (12.0-15.0); Immature Granulocyte Percent A 0.5 % (0-0.5); Lymphocytes Absolute Auto 1.97 K/mm3 (0.9-3.2); Mean Corpuscular HGB Conc 31.3 g/dl (32-36); Mean Corpuscular Hemoglobin 30.3 pg (26-34); Mean Corpuscular Volume 96.7 fl (80-100); Nucleated Red Blood Cells Absolute Auto 0.000 K/mm3 (0.0-0.012); Nucleated Red Blood Cells Perc 0.0 % (0.0-0.2); Platelet Count Result 269 k/mm3 (150-375); Red Blood Count 4.26 M/mm3 (4.2-5.4); White Blood Count 10.7 K/mm3 (4.5-10.0)
[2025-02-03 10:27] LABS: Albumin Level 4.7 g/dL (3.5-5.1); Anion Gap 12 mmol/L (4-12); Blood Urea Nitrogen 27 mg/dL (7-17); Calcium 10.7 mg/dL (8.4-10.2); Carbon Dioxide 21 mmol/L (22-30); Chloride 103 mmol/L (98-107); Estimated Glomerular Filt Rate 49; Glucose 104 mg/dL (65-110); Potassium 5.0 mmol/L (3.4-5.0); Sodium 136 mmol/L (137-145)
[2025-02-03 10:29] LABS: INR 1.0; Prothrombin Time 13.4 Seconds (11.1-14.7)
[2025-02-03 10:31] LABS: Partial Thromboplastin Time 27.3 Seconds (22.3-36.8)
== END 2025-02-03 08:14 | disposition home or self-care (01) ==
LOC: ANHSURGERY 08:18
PROVIDERS: Anesthesiology; PCP Nurse Practitioner; Visit Provider Orthopaedic Surgery
DX: Z01.812 Encounter for preprocedural laboratory examination (principal); M17.12 Unilateral primary osteoarthritis, left knee; N18.30 Chronic kidney disease, stage 3 unspecified
CPT/HCPCS: 36415; 80048; 80307; 82040; 85025; 85610; 85730; 86850; 86900; 86901; 87081

== ENCOUNTER 2025-02-03 12:30 | Outpatient (RCR) | payer MEDICARE, MEDICAID, SELFPAY ==
--- NOTE | 2025-01-06 09:55 | OPREHPOC ---
Outpatient Therapy Plan of Care This is a Multidisciplinary Plan of Care that may contain components documented by all disciplines (PT, OT, and ST.) PT Problem 1 PT Problem #1 Knowledge Deficit PT Goal 1 Goal / Goal Update Patient to demonstrate independence with HEP for improved self-reliance of symptom management. Target Visit 4 PT Problem 2 PT Problem #2 Impaired Gait PT Goal 1 Goal / Goal Update Patient to improve gait mechanics and stair negotiation to mild noted deficit and non- reciprocal pattern with improved subjective reports of confidence. Target Visit 8 PT Problem 3 PT Problem #3 Impaired Strength PT Goal 1 Goal / Goal Update Patient to demonstrate SIDNEY hip abduction strength >=4-/5 for improved functional stability required for gait mechanics. Target Visit 8 PT Problem 4 PT Problem #4 Impaired Endurance PT Goal 1 Goal / Goal Update Patient to improve distance ambulated during 2MWT from 375 feet to 425 feet to demonstrate an improvement in ADL endurance. Target Visit 8
--- NOTE | 2025-01-06 09:55 | PTOPEVAL1 ---
Assessment and note entered by Donna Hughes, PT Evaluation Information Assessment Status Evaluation ICD-10 Condition Codes (PT) Abnormalities of gait and mobility R26.9 Subjective Information Primary Complaint: walking funny History of current condition: Pt is currently 8 weeks post R TKA with complaints of walking funny. She was discharged form therapy after completing 10 sessions for her knee. She had returned to the doctor and he wanted her to start therapy for her hip weakness prior L TKA scheduled for 02/13/25. She is not having pain in her hips but pain in the L knee that needs replaced. She thought she was just walking different from that. She is not using a cane but the doctor instructed her to start using it again. Reported Pain Level Pain Score 5: Self Report Assessment PT Clinical Summary Pt is a 79 year old F who presents to physical therapy with a primary complaint of gait difficulties since her recent R TKA on 11/11/24. Pt demonstrates SIDNEY LE weakness, L knee pain and ROM deficits, decreased mobility, gait deficit, and decreased flexibility that limit their ability to perform ADLs. Pt will benefit from skilled physical therapy to address the above listed deficits and return to PLOF HEP instructed and written handout provided, EX tolerated well with no adverse effects to note post-session. Pt was educated on importance of adherence to HEP. Pt was also educated on anatomy, prognosis, home modalities, and PT POC. Plan of Care Interventions Aquatic Therapy,Electrical Stimulation,Gait Training,Hot Pack/Cold Pack,Intermittent Compression Pump,Manual Therapy,Neuro Re-education ,Therapeutic Activities,Therapeutic Exercise,Self- Care/Home Management PT Services Indicated Yes Treatment Frequency and 2x/wk for 8 sessions Duration These treatments will address the objective and functional deficits as defined above. The patient will be advanced safely and appropriately in order for the patient to progress towards his/her prior level of function. Additional exercises will be introduced and as well as a comprehensive home exercise program upon discharge, if needed, ?to ensure carryover of functional gains achieved in the clinic. This treatment plan has been reviewed and agreement upon by the patient.
--- NOTE | 2025-02-03 13:05 | PTOPDC ---
Assessment and note entered by Donna Hughes, PT Evaluation Information Assessment Status Discharge ICD-10 Condition Codes (PT) Abnormalities of gait and mobility R26.9 Subjective Information Pt was able to go to a few soccer games over the last weekend. She was very proud she could do this but she still c/o L knee pain. She has to wait to leave until most everyone is gone because it takes her longer. She is using her cane only because her doctor wants her to. Overall since starting therapy the pt reports feeling very confident in her strength and is feeling ready for surgery. She knows she needs to keep up with her exercises before surgery on 02/13. Reported Pain Level Pain Score 7: Self Report Assessment PT Clinical Summary Patient's condition has improved overall as evidenced by advancements in symptoms, mobility, strength, and overall functional use of the extremity. Pt has met all therapy goals and is pleased with progress made towards in PT prior to her upcoming surgery. Pt has L TKA scheduled for and will return with new order following change in status. Patient to DC from PT this date and continue with updated HEP as instructed. Pt to contact PT or PCP if questions or concerns arise. Plan of Care PT Services Indicated Yes
== END 2025-02-03 15:08 | disposition home or self-care (01) ==
LOC: ANHPT 12:30
PROVIDERS: PCP Family Medicine; Visit Provider Orthopaedic Surgery
DX: M70.62 Trochanteric bursitis, left hip (principal); M70.61 Trochanteric bursitis, right hip; R26.9 Unspecified abnormalities of gait and mobility; Z96.651 Presence of right artificial knee joint
CPT/HCPCS: 97110; 97116; 97161; 97530

== ENCOUNTER 2025-02-13 00:36 | Day surgery (SDC) | payer MEDICARE, MEDICAID, SELFPAY ==
[2025-01-30 13:30] VITALS: BMI 30.8
--- NOTE | 2025-01-30 14:07 | PC.NURSE ---
Report to the Outpatient Waiting Room, entrance under the green pavilion located off [facility], at time __9:30AM___ on date __02/13/25___. Planned Procedure Time: ___11:30AM___.? Time changes happen often and if your time is changed the preop area will call you the afternoon before. - You and your visitor will be asked to self-screen and do not enter if you have any COVID symptoms. Please call surgeon if you need to reschedule. - A mask is optional within the hospital at this time. Patients may have clear liquids (water, carbonated beverages, clear teas, apple juice) until 3 hours prior to surgery (8:30AM) with a maximum of 20 ounces. - No food from midnight until time of surgery and no smoking, or chewing tobacco (or any form of nicotine). No chewing gum, candy or mints. Take only the following medications with a SIP of water on the morning of surgery: ___NONE DO NOT STOP ANY OF YOUR OTHER PRESCRIPTION MEDICATIONS PRIOR TO SURGERY EXCEPT THE FOLLOWING Medications to discontinue per physician ____HOLD ALL VITAMINS/SUPPLEMENTS 7 DAYS PRE-OP PER DR DOMÍNGUEZ Date to take last dose 02/05/25 Please no make-up, nail syrian, hairspray, perfume, deodorant, or body powder the day of surgery.? No jewelry (including any body piercings) or valuables the day of surgery, leave them at home.? Please take a shower or bath the night before, or the morning of, surgery with an antibacterial soap.? Wear comfortable, loose fitting clothing.? - Jewelry must be removed prior to entering the operating room.? Rings and piercings that are not removed may be cut off. - The hospital will not accept responsibility for valuables.? - Please leave all valuables, including medications, at home the day of surgery. If you are going home after surgery, a licensed truck driver rubbish collector must drive you home.? - NO public transportation without another adult if you receive anesthesia. - We recommend that an adult stay with you for 24 hours following discharge. - We also recommend that you do not drive, make important decision, drink alcoholic beverages, or take any drugs that were not prescribed by your health care provider for at least 24 hours after your discharge time. Follow any additional instructions given to you from your surgeon. Telephone instructions given to ___PATIENT and asked if any additional questions and then verbalized understanding. Patient advised to call surgeon office or pre surgery nurse liaison [phone] if any additional questions.
--- NOTE | 2025-02-12 16:09 | PM.IMHP ---
H&P: HPI History of Present Illness Date/Time: 02/12/25 16:09 Chief Complaint: Patient presents for left total knee replacement. She has advanced osteoarthritis of left knee. She underwent right total knee replacement on November 11, 2024 and has done very well with that. 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 History of stage 3 chronic kidney disease. Because of her knee pain she has been in miserable pain and we have been using Celebrex on a short-term basis. We will plan to have her stop this permanently as soon as possible after knee replacement. If her creatinine goes up following surgery we will need to avoid this after surgery. [facility] Past Medical History Medical History BMI 30.0-30.9,adult Mixed hyperlipidemia Cervical radiculopathy Hepatic steatosis Osteopenia after menopause Vitamin D deficiency, unspecified Essential (primary) hypertension Diastolic dysfunction Encounter for Pap cervical smear following prior abnormal smear Chronic kidney disease, stage 3 Arthritis Gastroesophageal reflux disease Prediabetes Surgical History Surgical History History of knee replacement History of section Family History Family History Mother Diabetes mellitus Family history of cardiovascular disease Family history of genetic disorder Family history of coronary artery disease Father Hypertension Sibling No problems noted. Social History Social History Social History: Surrogate medical decision maker: Lucero Maldonado, daughter. Code status: Full code. 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 Gender identity (if verbalized by the patient): Female Spiritual care concerns: No Meds Home Medications and Allergies Home Medications ?Medication ?Instructions ?Recorded ?Confirmed ?Type ascorbic acid (vitamin C) 1,000 mg 1 g PO DAILY 09/02/20 02/04/25 History tablet cholecalciferol (vitamin D3) 50 50 mcg PO DAILY 02/20/23 02/04/25 History mcg (2,000 unit) capsule cyanocobalamin (vitamin B-12) 1,000 mcg PO DAILY 10/22/24 02/04/25 History 1,000 mcg capsule losartan 50 mg tablet See Rx Instructions .Route 11/11/24 02/04/25 Rx .COMPLEX #100 tabs atorvastatin 10 mg tablet See Rx Instructions .Route 01/27/25 02/04/25 Rx .COMPLEX #100 tabs methimazole 5 mg tablet 5 mg PO .COMPLEX #45 tabs 01/29/25 02/04/25 Rx acetaminophen 650 mg 1,300 mg PO Q8H PRN pain 01/30/25 02/04/25 History tablet,extended release (Tylenol Arthritis Pain) celecoxib 200 mg capsule (Celebrex) 200 mg PO QAM 01/30/25 02/04/25 History polyethylene glycol 3350 17 gram 17 g PO DAILY 01/30/25 02/04/25 History oral powder packet (Miralax) hydrochlorothiazide 12.5 mg tablet See Rx Instructions .Route 02/04/25 Rx .COMPLEX #50 tabs Allergies Allergy/AdvReac Type Severity Reaction Status Date / Time ibuprofen Allergy Mild Skin Verified 02/04/25 09:03 Reaction, RASH lisinopril AdvReac Mild cough Verified 02/04/25 09:03 Exam Narrative: Left knee: Left knee range of motion is 7-100 degrees. Trace effusion. Mild medial pseudolaxity to valgus stress otherwise normal AP and mediolateral stability. Hip range of motion cause no discomfort negative Stinchfield maneuver. She has 5/5 quadriceps strength with bony crepitus when she does this. She has 2+ dorsalis pedis and absent posterior tibial artery pulse. Normal sensation. Skin looks healthy. No lower extremity edema. She walks today with combination of an antalgic limp relative to her left knee and also a rather prominent bilateral Trendelenburg lurch. In the side-lying position she had moderate weakness in abduction of both hips today at neutral alignment moderate weakness at 20? of abduction bilaterally. She also had mild to moderate trochanteric tenderness bilaterally. Assessment and Plan Assessment and plan (1) Primary osteoarthritis of left knee: Code(s): M17.12 - Unilateral primary osteoarthritis, left knee Status: Acute Assessment and Plan: Patient has advanced osteoarthritis left knee. She presents for left total knee arthroplasty. Risks of surgery were discussed with her in detail she understand wished to proceed.
[2025-02-13] VITALS (14 sets, daily range): BP systolic 124–161; BP diastolic 55–97; PULSE 59–78; RESP 10–20; TEMP 36.3–36.9; O2SAT 94–100; BMI 29.7
--- NOTE | ~2025-02-13 | XR_ITS ---
EXAMINATION: [id number] DATE: 02/13/2025 15:01 CDT INDICATION: Left knee arthroplasty TECHNIQUE: 2 views left knee FINDINGS: There is a left total knee arthroplasty in expected position. Subcutaneous gas with fluid and air in the joint are consistent with recent surgery. No evidence of periprosthetic fracture. IMPRESSION: 1. Recent left total knee arthroplasty. Reviewed, dictated and finalized at location O.
--- OUTSIDE RECORDS SUMMARY | 2025-02-13 00:39 | XMS_ITS | Clinical Summary ---
Author Organization [facility] Address [address] [place] [address] Care Team Providers Care Drapery Operator Name Role Phone Unavailable Primary Care [...]
[2025-02-13] MEDS: LACTATED RINGERS 1,000 ML 30 ML IV CONT ×2 (09:45→14:55)
[2025-02-13] MEDS: VANCOMYCIN 1,250 MG/NS 250 ML 1,250 MG/250 ML BAG 166.67 MG IVPB (09:45)
[2025-02-13] MEDS: TRANEXAMIC ACID 1,000MG/ISO100 1,000 MG/100 ML BAG 200 MG IVPB (09:45)
[2025-02-13] MEDS: ACETAMINOPHEN 500 MG TABLET 1000 MG PO (09:50)
--- NOTE | 2025-02-13 10:56 | WPDANESEPPF ---
Anes - Initial Pre Proc Eval Procedure: Operation Date: 02/13/25 11:30 Proposed Procedures p Left Total Knee Arthroplasty - Agusto Low MD Date/Time: 02/13/25 10:56 Surgeon: Agusto Low MD Pre Op Diagnosis: OA LEFT KNEE Patient Data Age: 79 Gender: F Height: 1.55 m Weight: 71.4 kg Last Vital Signs Temp 98.3 F 02/13/25 09:35 Pulse 64 02/13/25 09:35 Resp 18 02/13/25 09:35 BP 145/73 H 02/13/25 09:35 Pulse Ox 100 02/13/25 09:35 O2 Del Method Room Air 02/13/25 09:35 Allergies Allergy/AdvReac Type Severity Reaction Status Date / Time ibuprofen Allergy Mild Skin Verified 02/04/25 09:03 Reaction, RASH lisinopril AdvReac Mild cough Verified 02/04/25 09:03 Home Medications ?Medication ?Instructions ?Recorded ?Confirmed ?Type ascorbic acid (vitamin C) 1,000 mg 1 g PO DAILY 09/02/20 02/04/25 History tablet cholecalciferol (vitamin D3) 50 50 mcg PO DAILY 02/20/23 02/04/25 History mcg (2,000 unit) capsule cyanocobalamin (vitamin B-12) 1,000 mcg PO DAILY 10/22/24 02/04/25 History 1,000 mcg capsule losartan 50 mg tablet See Rx Instructions .Route 11/11/24 02/04/25 Rx .COMPLEX #100 tabs atorvastatin 10 mg tablet See Rx Instructions .Route 01/27/25 02/04/25 Rx .COMPLEX #100 tabs methimazole 5 mg tablet 5 mg PO .COMPLEX #45 tabs 01/29/25 02/04/25 Rx acetaminophen 650 mg 1,300 mg PO Q8H PRN pain 01/30/25 02/04/25 History tablet,extended release (Tylenol Arthritis Pain) celecoxib 200 mg capsule (Celebrex) 200 mg PO QAM 01/30/25 02/04/25 History polyethylene glycol 3350 17 gram 17 g PO DAILY 01/30/25 02/04/25 History oral powder packet (Miralax) hydrochlorothiazide 12.5 mg tablet See Rx Instructions .Route 02/04/25 Rx .COMPLEX #50 tabs Patient hx anesthesia problems: none Family hx anesthesia problems: none Results Review: All pre-operative results and documents have been reviewed as part of the pre-operative evaluation. [facility] Past Medical History Medical History BMI 30.0-30.9,adult Mixed hyperlipidemia Cervical radiculopathy Hepatic steatosis Osteopenia after menopause Vitamin D deficiency, unspecified Essential (primary) hypertension Diastolic dysfunction Encounter for Pap cervical smear following prior abnormal smear Chronic kidney disease, stage 3 Arthritis Gastroesophageal reflux disease Prediabetes Surgical History Surgical History History of knee replacement History of section Family History Family History Mother Diabetes mellitus Family history of cardiovascular disease Family history of genetic disorder Family history of coronary artery disease Father Hypertension Sibling No problems noted. Social History Social History Social History: Surrogate medical decision maker: Lucero Maldonado, daughter. Code status: Full code. 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 Informed Consent: The patient's anesthetic plan and its attendant risks and benefits were discussed with the patient/family/POA. Questions were solicited and answers provided to the satisfaction of the patient/family/POA.
--- NOTE | 2025-02-13 11:04 | WPDHPUPDATE1 ---
History and Physical Update Update Date/Time: 02/13/25 11:04 History and Physical has been reviewed, including an updated exam of the patient. There are NO changes in the patient's condition. Risks, benefits, and alternatives have been discussed and questions answered. Patient agrees to proceed with procedure.
[2025-02-13] MEDS: ceFAZolin 2 GM in SODIUM CHLORIDE 0.9% IV 50 ML 100 ML IVPB ×2 (11:26→20:06)
[2025-02-13] MEDS: SODIUM CHLORIDE 0.9% IV 37.7 ML, MORPHINE SULFATE INJ (*CRX) 2 MG, ROPivacaine HCL 1% 2... INFILTRATE (12:00)
[2025-02-13] MEDS: GENTAMICIN BONE CEMENT REFOBACIN 1 EACH TOPICAL (13:34)
[2025-02-13] MEDS: TRANEXAMIC ACID 1,000 MG/10 ML AMPUL 1000 MG IV PUSH (13:45)
--- NOTE | 2025-02-13 14:45 | W.PM.PROC2 ---
Procedure Note - Detailed Date of Procedure 02/13/25 Pre-op Diagnosis OA LEFT KNEE Post-op Diagnosis Same Procedure Performed Left total knee replacement Surgeon Agusto Low MD Blocking Machine Tender Davey Bowers Anesthesia General Description of Procedure patient was brought to the operating room and general anesthesia was administered. The left knee was prepped draped usual fashion. She received 2 g of Ancef weight based vancomycin 1 g of TXA preoperatively. Under anesthesia there was medial pseudolaxity to valgus stress. She lacked a few degrees of extension. She had flexion to 95?. Limb was exsanguinated tourniquet elevated to 275 mmHg. A 7 in longitudinal midline incision was used and a standard parapatellar arthrotomy utilized. Partial excision of infrapatellar fat pad was performed. Quadriceps synovectomy carried out. Suprapatellar fat pad partially excised. There was quite a bit of synovitis in the knee. Gentle debridement was performed. There were huge osteophytes along the medial aspect of the knee from the proximal trochlea anteriorly around the medial side of the knee. There is a fragment of bone that was presumably osteophyte that fractured off the medial tibial plateau previously that we were able to peel off the medial capsule without leaving a defect in it. There was severe wear of the medial tibial plateau centrally. There is severe wear of the posterior and distal medial femoral condyle as well. a guide octaviano was inserted on femoral canal after aspiration of canal contents in using the 5 degree valgus cutting bushing, 6 mm of bone removed the distal femur. This removed 6 off the distal surface of the lateral plateau and a little bit less than that due to the where the medial plateau. Next the tibial plateau was cut. Our initial cut did not quite reach the depth of the medial tibial plateau defect and an additional 2 mm of bone was removed which moved about a 0.5 mm of bone from the low point of the medial tibial plateau defect. This was made perpendicular to the axis of the tibia. Meniscal remnants were excised. PCL was recessed. We did not release posterior capsule. Flexion gap was assessed. It measured 10 mm medially and 12 mm laterally. The femoral sizing guide was applied the distal femur set at 3? of external rotation. This matched Whitesides line. Posterior referencing pinholes were placed. We impacted the size 65 AP cutting block for the Vanguard and AP and chamfer cuts were made and this gave a flush cut with the trial component anteriorly at the cortex and fit line to line medial to lateral. The tibia was sized to a 71. This fit line to line anteromedial to posterolateral. There is still osteophyte along the medial tibial plateau but this had deep capsule attached to it and I did not wish to detached the capsule at this time so was left alone. The anteromedial osteophyte that was free was trimmed. We trialed with the 10 mm insert. At 90? there was appropriate anterior posterior drawer a little bit looser medially than laterally but this became snug when the arthrotomy was approximated with towel clips at 90?. We did trial the 11 which was far too tight in flexion and we lacked a few degrees of extension. With the 10 insert the knee did come out to full extension the 0.5 mm medial and 2 mm of lateral opening. We removed posterior femoral osteophytes which was quite pronounced using the trial femur is template and with this done on read trialing the knee had gravity flexion 130?. Again the knee came out to full extension with negative bounce. There was a little bit of a catch sensation of the superior edge of the patella by the edge of the femoral component at the anterior aspect of the trochlear opening and I elected to resurface the patella at this time. It measured 23 mm in thickness. It was cut to 15 mm and the lug holes for the 31 mm patella were drilled and the 8 mm thick patella trial head composite thickness of 23 mm and there is central patellar tracking throughout. Lug holes for the femoral component were drilled. Step drill was used to make multiple perforations in the tibial plateau and distal femur the bone quality was excellent throughout. Bony surfaces were thoroughly irrigated and dried. Using 2 batches of methylmethacrylate 1 with gentamicin powder, cement was immediately applied to the size 71 vanguard tibial tray and the size 65 left cruciate retaining femoral component. Cement applied the tibial plateau pressurized tibial component fully seated cement applied the femur the femoral component fully seated and the knee brought to extension with an 11 mm 5 and 1 insert for pressurization and the 31 x 8 mm patellar button was cemented. Tourniquet was released total tourniquet time proximally 105 minutes. After cement hardening excess cement was sought for removed and hemostasis was achieved. We trialed the 10 insert and had the same findings as we described above. The 10 insert was placed locked with a locking pin range of motion stability patellar tracking reconfirmed. Arthrotomy was closed with 2. Vicryl and 1. Unidirectional barbed Stratafix suture. Skin was closed with 2 subcutaneous Vicryl 3-0 subcuticular Monocryl and glue. Two additional g of Ancef and 1 g of TXA given time wound closure. EBL is 200cc. She was transferred postop recovery room in good condition. [facility] - Charge Forward: Surgery Billing ( Left total knee replacement)
--- NOTE | 2025-02-13 16:48 | P.CONIM_ITS ---
Assessment and Plan Assessment and plan (1) Status post total left knee replacement: Code(s): Z96.652 - Presence of left artificial knee joint Status: Acute Assessment and Plan: - primary management the orthopedic team - use IS - neurovasc checks - see order for intervals - SCDs - analgesics and antiemetics p.r.n. - monitor labs in AM - CBC and BMP - bowel regimen: docusate/senna, polyethylene glycol - PT/OT (2) Hyperthyroidism: Code(s): E05.90 - Thyrotoxicosis, unspecified without thyrotoxic crisis or storm Status: Chronic Assessment and Plan: - continue methimazole (3) Prediabetes: Code(s): R73.03 - Prediabetes Status: Chronic Assessment and Plan: - A1c 5.7% on 12/11/2024 (4) Chronic kidney disease, stage 3: Qualifiers: Chronic kidney disease stage 3 subtype: unspecified whether 3a or 3b Qualified Code(s): N18.30 - Chronic kidney disease, stage 3 unspecified Code(s): N18.30 - Chronic kidney disease, stage 3 unspecified Status: Chronic Assessment and Plan: - creatinine 1.09, BUN 27 on 02/03 - baseline creatinine: 1-1.2 - trend renal function - trend electrolytes, correct as needed (5) Essential (primary) hypertension: Code(s): I10 - Essential (primary) hypertension Status: Chronic Assessment and Plan: - chronic, currently 152/67 - continue home medications: Losartan 50 mg daily - monitor Plan Diet: Regular GI Prophylaxis: Famotidine p.o. DVT Prophylaxis: SCDs IV fluids: 125 mL/hour x8 hours Lines/Tubes: Peripheral IV Code Status: Full code HPI Date of Consult Consult date: 02/13/25 Requesting Physician: Agusto Low MD Primary Care Provider: SEAN SchreiberC Consult Narrative Reason for consult: Medical Management Narrative: Korina Cavazos is a 79 year old female who presents to [facility] on 02/13 for a total left knee replacement. She has a PMH significant for osteopenia, hypertension, diastolic dysfunction, CKD stage 3, and hyperlipidemia. She was found to have advanced osteoarthritis of the left knee. Pain has been present for the past few years. Pain now interfering with walking, stairs, and her ADLs. She has previously underwent a right total knee replacement in November of 2024. She reports good results and an uneventful recovery. Given these factors she elected to move forward with surgical management. Postop she reports moderate nausea with vomiting but no significant pain. Preop VS: 98.3? F, HR 64, R 18, 145/73, and 100% on RA. Preop workup: WBC 10.7, hemoglobin 12.9, normal coags, sodium 136, creatinine 1.09 and GFR 49. Review of Systems Review of Systems: All systems reviewed & are unremarkable except as noted in HPI and below [facility] Past Medical History Medical History (Updated 02/13/25 @ 16:56 by Tri Rm APRN) BMI 30.0-30.9,adult Mixed hyperlipidemia Cervical radiculopathy Hepatic steatosis Osteopenia after menopause Vitamin D deficiency, unspecified Essential (primary) hypertension Diastolic dysfunction Encounter for Pap cervical smear following prior abnormal smear Chronic kidney disease, stage 3 Arthritis Gastroesophageal reflux disease Prediabetes Surgical History Surgical History (Updated 02/13/25 @ 16:53 by Tri Rm APRN) Status post total left knee replacement Status post total right knee replacement History of knee replacement History of section Family History Family History Mother Diabetes mellitus Family history of cardiovascular disease Family history of genetic disorder Family history of coronary artery disease Father Hypertension Sibling No problems noted. Social History Social History Social History: Surrogate medical decision maker: Lucero Maldonado, daughter. Code status: Full code. 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 Gender identity (if verbalized by the patient): Female Spiritual care concerns: No Meds Home Medications and Allergies Home Medications ?Medication ?Instructions ?Recorded ?Confirmed ?Type ascorbic acid (vitamin C) 1,000 mg 1 g PO DAILY 02/04/25 History tablet cholecalciferol (vitamin D3) 50 50 mcg PO DAILY 02/04/25 History mcg (2,000 unit) capsule cyanocobalamin (vitamin B-12) 1,000 mcg PO DAILY 10/2202/04/25 History 1,000 mcg capsule losartan 50 mg tablet See Rx Instructions .Route 0 11/11/24 02/04/25 Rx .COMPLEX #100 tabs atorvastatin 10 mg tablet See Rx Instructions .Route 0 01/27/25 02/04/25 Rx .COMPLEX #100 tabs methimazole 5 mg tablet 5 mg PO .COMPLEX #45 tabs 02/04/25 Rx acetaminophen 650 mg 1,300 mg PO Q8H PRN pain 02/04/25 History tablet,extended release (Tylenol Arthritis Pain) celecoxib 200 mg capsule (Celebrex) 200 mg PO QAM 01/1102/04/25 History polyethylene glycol 3350 17 gram 17 g PO DAILY 5 02/04/25 History oral powder packet (Miralax) hydrochlorothiazide 12.5 mg tablet See Rx Instructions .Route 02/04/25 Rx .COMPLEX #50 tabs Allergies Allergy/AdvReac Type Severity Reaction Status Date / Time ibuprofen Allergy Mild Skin Verified 02/04/25 09:03 Reaction, RASH lisinopril AdvReac Mild cough Verified 02/04/25 09:03 Vital Signs Vital Signs - 24 hr 02/13/25 09:35 02/13/25 14:55 02/13/25 15:10 Temperature 98.3 F 97.5 F L Pulse Rate 64 78 65 Respiratory Rate 18 10 L 10 L Blood Pressure 145/73 H 141/55 H 141/60 H Pulse Oximetry 100 100 100 Oxygen Delivery Room Air Simple Face Mask Simple Face Mask Oxygen Flow Rate 8 8 02/13/25 15:15 02/13/25 15:30 02/13/25 15:45 Temperature Pulse Rate 59 L 59 L 64 Respiratory Rate 10 L 13 10 L Blood Pressure 150/63 H 156/73 H 142/65 H Pulse Oximetry 100 100 96 Oxygen Delivery Simple Face Mask Room Air Room Air Oxygen Flow Rate 8 02/13/25 16:00 02/13/25 16:15 Temperature Pulse Rate 61 60 Respiratory Rate 13 13 Blood Pressure 124/97 H 152/67 H Pulse Oximetry 96 95 Oxygen Delivery Room Air Room Air Oxygen Flow Rate Exam Const: General: comfortable and no acute distress Other: , female, elderly, nontoxic appearance HENMT: Face/Nose/Sinus: Normal nares present Mouth: Yes moist mucous membranes Eyes: General: appearance normal, both eyes and all related structures Sclera: sclerae normal Pupils: Equal, round and reactive pupils present EOM: EOMs intact bilaterally Resp: Effort & Inspection: normal respiratory effort Auscultation: clear to auscultation bilaterally Cardio: Rate: regular rate Rhythm: regular rhythm Other: S1-S2 present without murmur, rub, ectopy GI: Other: Abdomen soft, nondistended, nontender. Normoactive bowel sounds in all quadrants. Skin: General skin exam: normal color and no rashes or lesions noted Wounds : no wounds Neuro: Speech: normal speech Motor exam (neuro): 5/5 motor strength present throughout Sensory Exam: normal sensation Other: A&O x4 Extrem: Other: Minimal crepitus over the left knee, postsurgical incision noted, dressing CDI. No peripheral edema. Psych: Mental Status: mental status grossly normal Affect: normal affect Other: Good insight and judgment, very pleasant Quality VTE Prophylaxis VTE prophylaxis: mechanical ordered Hospitalist [facility] Advance Care Plan I have confirmed that the patient's Advanced Care Plan is present, code status is documented, or surrogate decision maker is listed in patient medical record.: Yes Medication Reconciliation I have utilized all available resources to obtain, update and review the patients current medications (includes all prescriptions, OTC, herbals, canna bis, and nutritional supplements).: Yes
--- NOTE | 2025-02-13 16:51 | ADMGEN ---
This patient, Korina Cavazos, was admitted to [facility] Surg Room 303-01. Patient/family oriented to hospital policies and general routines including ID bracelet, bed and alarms, visiting hours, pain management, procedures, bathroom and other care routines, personal items, smoking policy, room service/diet, and visiting hours. Information on how to activate the Rapid Response Team has been discussed. Patient/Family are encouraged to report perceived risks to care and to ask questions if they do not understand what they are told or what they should do.
[2025-02-13] MEDS: ONDANSETRON INJ 4 MG/2 ML VIAL IV PUSH ×2 (17:17→21:01)
[2025-02-13] MEDS: SODIUM CHLORIDE 0.9% IV 1,000 ML 125 ML IV CONT (17:59)
[2025-02-13] MEDS: oxyCODONE HCL (*CRX) 5 MG TAB IR PO (20:06)
[2025-02-13] MEDS: ACETAMINOPHEN 325 MG TABLET 650 MG PO (20:06)
[2025-02-13] MEDS: FAMOTIDINE 20 MG TABLET PO (20:07)
[2025-02-13] MEDS: VANCOMYCIN HCL 1,000 MG in SODIUM CHLORIDE 0.9% IV 250 ML 250 MG IVPB (21:24)
[2025-02-14] MEDS: ACETAMINOPHEN 325 MG TABLET 650 MG PO ×4 (01:59→12:53)
[2025-02-14] MEDS: oxyCODONE HCL (*CRX) 5 MG TAB IR PO ×4 (02:00→12:53)
[2025-02-14 02:05] VITALS: BP 109/50; PULSE 57; RESP 20; TEMP 36.4; O2SAT 98
[2025-02-14] MEDS: ceFAZolin 2 GM in SODIUM CHLORIDE 0.9% IV 50 ML 100 ML IVPB ×2 (03:44→12:18)
[2025-02-14 04:45] VITALS: BP 100/54; PULSE 64; RESP 16; TEMP 36.6; O2SAT 99
[2025-02-14 05:33] LABS: Hematocrit 32.3 % (37.0-47.0); Hemoglobin 10.3 g/dL (12.0-15.0); Immature Granulocyte Percent A 0.4 % (0-0.5); Lymphocytes Absolute Auto 0.71 K/mm3 (0.9-3.2); Mean Corpuscular HGB Conc 31.9 g/dl (32-36); Mean Corpuscular Hemoglobin 30.9 pg (26-34); Mean Corpuscular Volume 97.0 fl (80-100); Nucleated Red Blood Cells Absolute Auto 0.000 K/mm3 (0.0-0.012); Nucleated Red Blood Cells Perc 0.0 % (0.0-0.2); Platelet Count Result 165 k/mm3 (150-375); Red Blood Count 3.33 M/mm3 (4.2-5.4); White Blood Count 11.4 K/mm3 (4.5-10.0)
[2025-02-14 05:46] LABS: Anion Gap 5 mmol/L (4-12); Blood Urea Nitrogen 24 mg/dL (7-17); Calcium 9.3 mg/dL (8.4-10.2); Carbon Dioxide 24 mmol/L (22-30); Chloride 107 mmol/L (98-107); Estimated CRCL calculation 35 ml/min; Estimated Glomerular Filt Rate 49; Glucose 114 mg/dL (65-110); Potassium 4.1 mmol/L (3.4-5.0); Sodium 136 mmol/L (137-145)
--- NOTE | 2025-02-14 07:25 | PM.IMCN ---
Assessment and Plan Assessment and plan (1) Status post total left knee replacement: Code(s): Z96.652 - Presence of left artificial knee joint Status: Acute Assessment and Plan: - primary management the orthopedic team - use IS - neurovasc checks - see order for intervals - SCDs - analgesics and antiemetics p.r.n. - monitor labs in AM - CBC and BMP - bowel regimen: docusate/senna, polyethylene glycol - PT/OT (2) Hyperthyroidism: Code(s): E05.90 - Thyrotoxicosis, unspecified without thyrotoxic crisis or storm Status: Chronic Assessment and Plan: - continue methimazole (3) Prediabetes: Code(s): R73.03 - Prediabetes Status: Chronic Assessment and Plan: - A1c 5.7% on 12/11/2024 (4) Chronic kidney disease, stage 3: Qualifiers: Chronic kidney disease stage 3 subtype: unspecified whether 3a or 3b Qualified Code(s): N18.30 - Chronic kidney disease, stage 3 unspecified Code(s): N18.30 - Chronic kidney disease, stage 3 unspecified Status: Chronic Assessment and Plan: - creatinine 1.09, BUN 27 on 02/03 - baseline creatinine: 1-1.2 - trend renal function - trend electrolytes, correct as needed (5) Essential (primary) hypertension: Code(s): I10 - Essential (primary) hypertension Status: Chronic Assessment and Plan: - chronic, currently 152/67 - continue home medications: Losartan 50 mg daily - monitor Plan Diet: Regular GI Prophylaxis: Famotidine p.o. DVT Prophylaxis: SCDs IV fluids: 125 mL/hour x8 hours Lines/Tubes: Peripheral IV Code Status: Full code HPI Date of Consult Consult date: 02/14/25 Requesting Physician: Agusto Low MD Primary Care Provider: SEAN SchreiberC Consult Narrative Narrative: Korina Cavazos is a 79 year old female who presents to [facility] on 02/13 for a total left knee replacement. She has a PMH significant for osteopenia, hypertension, diastolic dysfunction, CKD stage 3, and hyperlipidemia. She was found to have advanced osteoarthritis of the left knee. Pain has been present for the past few years. Pain now interfering with walking, stairs, and her ADLs. She has previously underwent a right total knee replacement in November of 2024. She reports good results and an uneventful recovery. Given these factors she elected to move forward with surgical management. 02/14/2025 POD 1 l TKR. Pt examined in bed, progressing well today. Seen by Dr. Low this AM - cleared for discharge from their standpoint. Medically she is hemodynamically stable for discharge. Review of Systems Review of Systems: All systems reviewed & are unremarkable except as noted in HPI and below PMFSH Past Medical History Medical History (Updated 02/13/25 @ 16:56 by Tri Rm APRN) BMI 30.0-30.9,adult Mixed hyperlipidemia Cervical radiculopathy Hepatic steatosis Osteopenia after menopause Vitamin D deficiency, unspecified Essential (primary) hypertension Diastolic dysfunction Encounter for Pap cervical smear following prior abnormal smear Chronic kidney disease, stage 3 Arthritis Gastroesophageal reflux disease Prediabetes Surgical History Surgical History (Updated 02/13/25 @ 16:53 by Tri Rm APRN) Status post total left knee replacement Status post total right knee replacement History of knee replacement History of section Family History Family History Mother Diabetes mellitus Family history of cardiovascular disease Family history of genetic disorder Family history of coronary artery disease Father Hypertension Sibling No problems noted. Social History Social History Social History: Surrogate medical decision maker: Lucero Maldonado, daughter. Code status: Full code. 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 Instructions: Resume on 02/28/25. cholecalciferol (vitamin D3) 50 50 mcg PO DAILY 02/20/23 02/04/25 History mcg (2,000 unit) capsule cyanocobalamin (vitamin B-12) 1,000 mcg PO DAILY 10/22/24 02/04/25 History 1,000 mcg capsule losartan 50 mg tablet See Rx Instructions .Route 11/11/24 02/04/25 Rx .COMPLEX #100 tabs atorvastatin 10 mg tablet See Rx Instructions .Route 01/27/25 02/04/25 Rx .COMPLEX #100 tabs methimazole 5 mg tablet 5 mg PO .COMPLEX #45 tabs 01/29/25 02/04/25 Rx polyethylene glycol 3350 17 gram 17 g PO DAILY 01/30/25 02/04/25 History oral powder packet (Miralax) hydrochlorothiazide 12.5 mg tablet See Rx Instructions .Route 02/04/25 Rx .COMPLEX #50 tabs acetaminophen 325 mg tablet 650 mg (2 x 325 mg) PO Q6H pain 02/14/25 Rx #120 tabs apixaban 2.5 mg tablet (Eliquis) 2.5 mg PO BID #28 tabs 02/14/25 Rx cefdinir 300 mg capsule 300 mg PO Q12H #14 caps 02/14/25 Rx celecoxib 100 mg capsule (Celebrex) 100 mg PO DAILY@0800 #30 caps 02/14/25 Rx oxycodone 5 mg tablet 5 mg PO Q4H PRN Pain Rated 7-10 02/14/25 Rx #40 tabs sennosides 8.6 mg-docusate sodium 2 tab-cap (2 x 8.6-50 mg) PO BID 02/14/25 Rx 50 mg tablet (Senokot-S) #120 tabs Allergies Allergy/AdvReac Type Severity Reaction Status Date / Time ibuprofen Allergy Mild Skin Verified 02/04/25 09:03 Reaction, RASH lisinopril AdvReac Mild cough Verified 02/04/25 09:03 Vital Signs Vital Signs - 24 hr 02/13/25 09:35 02/13/25 14:55 02/13/25 15:10 Temperature 98.3 F 97.5 F L Pulse Rate 64 78 65 Respiratory Rate 18 10 L 10 L Blood Pressure 145/73 H 141/55 H 141/60 H Pulse Oximetry 100 100 100 Oxygen Delivery Room Air Simple Face Mask Simple Face Mask Oxygen Flow Rate 8 8 02/13/25 15:15 02/13/25 15:30 02/13/25 15:45 Temperature Pulse Rate 59 L 59 L 64 Respiratory Rate 10 L 13 10 L Blood Pressure 150/63 H 156/73 H 142/65 H Pulse Oximetry 100 100 96 Oxygen Delivery Simple Face Mask Room Air Room Air Oxygen Flow Rate 8 02/13/25 16:00 02/13/25 16:15 02/13/25 16:20 Temperature 97.4 F L Pulse Rate 61 60 64 Respiratory Rate 13 13 18 Blood Pressure 124/97 H 152/67 H 154/92 H Pulse Oximetry 96 95 98 Oxygen Delivery Room Air Room Air Oxygen Flow Rate 02/13/25 16:35 02/13/25 17:03 02/13/25 17:05 Temperature 97.7 F 97.7 F Pulse Rate 64 60 64 Respiratory Rate 18 13 18 Blood Pressure 161/69 H 148/59 H Pulse Oximetry 94 95 100 Oxygen Delivery Room Air Oxygen Flow Rate 02/13/25 18:05 02/13/25 20:00 02/13/25 20:57 Temperature 97.5 F L 98.4 F Pulse Rate 62 68 Respiratory Rate 18 20 Blood Pressure 138/58 L 156/62 H Pulse Oximetry 100 100 Oxygen Delivery Room Air Oxygen Flow Rate 02/14/25 02:05 02/14/25 04:45 Temperature 97.6 F 98 F Pulse Rate 57 L 64 Respiratory Rate 20 16 Blood Pressure 109/50 L 100/54 L Pulse Oximetry 98 99 Oxygen Delivery Oxygen Flow Rate Exam Const: General: comfortable and no acute distress Other: , female, elderly, nontoxic appearance HENMT: Face/Nose/Sinus: Normal nares present Mouth: Yes moist mucous membranes Eyes: General: appearance normal, both eyes and all related structures Sclera: sclerae normal Pupils: Equal, round and reactive pupils present EOM: EOMs intact bilaterally Resp: Effort & Inspection: normal respiratory effort Auscultation: clear to auscultation bilaterally Cardio: Rate: regular rate Rhythm: regular rhythm Other: S1-S2 present without murmur, rub, ectopy GI: Other: Abdomen soft, nondistended, nontender. Normoactive bowel sounds in all quadrants. Skin: General skin exam: normal color and no rashes or lesions noted Wounds: no wounds Neuro: Cranial nerves: Yes Equal, round and reactive pupils present Speech: normal speech Motor exam (neuro): 5/5 motor strength present throughout Sensory Exam: normal sensation Other: A&O x4 Extrem: Other: postsurgical incision noted, dressing CDI. No peripheral edema. Psych: Mental Status: mental status grossly normal Affect: normal affect Other: Good insight and judgment, very pleasant Results Labs 02/14/25 05:24 02/14/25 05:24 Labs: Short CBC 02/14/25 Range/Units 05:24 WBC 11.4 H (4.5-10.0) K/mm3 Hgb 10.3 L (12.0-15.0) g/dL Hct 32.3 L (37.0-47.0) % Plt Count 165 (150-375) k/mm3 BMP 02/14/25 05:24 Sodium 136 L Potassium 4.1 Chloride 107 Carbon Dioxide 24 BUN 24 H Creatinine 1.09 H Glucose 114 H Calcium 9.3 Quality VTE Prophylaxis VTE prophylaxis: mechanical ordered
[2025-02-14 08:20] VITALS: BP 128/60; PULSE 64; RESP 15; TEMP 36.9; O2SAT 100
[2025-02-14] MEDS: FAMOTIDINE 20 MG TABLET PO (08:36)
[2025-02-14] MEDS: CHOLECALCIFEROL (VITAMIN D3) 25 MCG (1,000 UNITS) TABLET 50 MCG PO (08:36)
[2025-02-14] MEDS: SENNA/DOCUSATE SODIUM TABLET 2 TAB PO (08:37)
[2025-02-14] MEDS: LOSARTAN POTASSIUM 50 MG TABLET PO (08:37)
[2025-02-14] MEDS: ATORVASTATIN 10 MG TABLET PO (08:37)
[2025-02-14] MEDS: CELECOXIB 100 MG CAPSULE PO (08:37)
[2025-02-14] MEDS: ONDANSETRON INJ 4 MG/2 ML VIAL IV PUSH (08:39)
--- NOTE | 2025-02-14 09:02 | P.PNOP_ITS ---
Progress Note: A&P Assessment and Plan (1) Status post total left knee replacement: Code(s): Z96.652 - Presence of left artificial knee joint Status: Acute Assessment and Plan: Patient is postop day 1. After left total knee replacement. She feels she is doing very well. Her laboratory studies today show hemoglobin 10.3. Creatinine is 1.09 which is essentially unchanged. I have talked her about the fact that using medication like Celebrex tends to worsen renal function. She feels that she needs this for her pain. We will use the low-dose 100 mg tablet daily during the 1st few weeks until her pain is satisfactorily controlled to stop this. She is neurologically intact in the left leg. Her dressing is dry without drainage visible. Importance of stretching into full extension and flexion and avoiding sitting in the chair so when she is not up walking she will be on her back with her leg elevated above her heart to minimize excessive swelling. Patient feels comfortable to go home today. Subjective Subjective Date/Time Seen: 02/14/25 09:02 Objective Data Vital Signs Vital Signs: Vital Signs - 24 hr 02/13/25 09:35 02/13/25 14:55 02/13/25 15:10 Temperature 36.8 C 36.4 C L Pulse Rate 64 78 65 Respiratory Rate 18 10 L 10 L Blood Pressure 145/73 H 141/55 H 141/60 H Pulse Oximetry 100 100 100 Oxygen Delivery Room Air Simple Face Mask Simple Face Mask Oxygen Flow Rate 8 8 02/13/25 15:15 02/13/25 15:30 02/13/25 15:45 Temperature Pulse Rate 59 L 59 L 64 Respiratory Rate 10 L 13 10 L Blood Pressure 150/63 H 156/73 H 142/65 H Pulse Oximetry 100 100 96 Oxygen Delivery Simple Face Mask Room Air Room Air Oxygen Flow Rate 8 02/13/25 16:00 02/13/25 16:15 02/13/25 16:20 Temperature 36.3 C L Pulse Rate 61 60 64 Respiratory Rate 13 13 18 Blood Pressure 124/97 H 152/67 H 154/92 H Pulse Oximetry 96 95 98 Oxygen Delivery Room Air Room Air Oxygen Flow Rate 02/13/25 16:35 02/13/25 17:03 02/13/25 17:05 Temperature 36.5 C 36.5 C Pulse Rate 64 60 64 Respiratory Rate 18 13 18 Blood Pressure 161/69 H 148/59 H Pulse Oximetry 94 95 100 Oxygen Delivery Room Air Oxygen Flow Rate 02/13/25 18:05 02/13/25 20:00 02/13/25 20:57 Temperature 36.4 C L 36.9 C Pulse Rate 62 68 Respiratory Rate 18 20 Blood Pressure 138/58 L 156/62 H Pulse Oximetry 100 100 Oxygen Delivery Room Air Oxygen Flow Rate 02/14/25 02:05 02/14/25 04:45 02/14/25 08:20 Temperature 36.4 C 36.6 C 36.9 C Pulse Rate 57 L 64 64 Respiratory Rate 20 16 15 Blood Pressure 109/50 L 100/54 L 128/60 Pulse Oximetry 98 99 100 Oxygen Delivery Oxygen Flow Rate 02/14/25 08:27 Temperature Pulse Rate Respiratory Rate Blood Pressure Pulse Oximetry Oxygen Delivery Room Air Oxygen Flow Rate Intake/Output Intake/Output: Intake & Output 02/11/25 02/12/25 02/13/25 02/14/25 23:59 23:59 23:59 23:59 Intake Total 1600 Output Total 700 Balance 1600 -700 Meds/Results Medications: Active Medications Generic Name Dose Route Start Last Admin Trade Name Freq PRN Reason Stop Dose Admin Acetaminophen 650 mg 02/13/25 17:00 02/14/25 08:37 Acetaminophen 325 Mg Tablet PO 650 mg Q4H TIMOTHY Administration Atorvastatin Calcium 10 mg 02/14/25 09:00 02/14/25 08:37 Atorvastatin 10 Mg Tablet PO 10 mg DAILY TIMOTHY Administration Cefdinir 300 mg 02/14/25 19:00 Cefdinir 300 Mg Capsule PO Q12H TIMOTHY Celecoxib 100 mg 02/14/25 08:00 02/14/25 08:37 Celecoxib 100 Mg Capsule PO 100 mg DAILY@0800 TIMOTHY Administration Famotidine 20 mg 02/13/25 21:00 02/14/25 08:36 Famotidine 20 Mg Tablet PO 20 mg Q12HR TIMOTHY Administration Vancomycin HCl 1,000 mg/ 250 mls @ 250 mls/hr 02/13/25 22:00 02/13/25 21:24 Sodium Chloride IVPB 02/14/25 10:59 250 mls/hr Q12H TIMOTHY Administration Cefazolin Sodium 2 gm/ Sodium 50 mls @ 100 mls/hr 02/13/25 19:30 02/14/25 03:44 Chloride IVPB 02/14/25 11:59 100 mls/hr Q8H TIMTOHY Administration Losartan Potassium 50 mg 02/14/25 09:00 02/14/25 08:37 Losartan Potassium 50 Mg Tablet PO 50 mg DAILY TIMOTHY Administration Methimazole 5 mg 02/14/25 09:00 02/14/25 08:36 Methimazole 5 Mg Tab PO 5 mg [id number]@0900 TIMOTHY Administration Morphine Sulfate 2 mg 02/13/25 16:20 Morphine Sulfate (*Crx) 2 Mg/Ml Inj IV PUSH Q1H PRN Pain Rated 7-10 Naloxone HCl 0.1 mg 02/13/25 16:20 Naloxone Hcl 0.4 Mg/Ml Vial IV PUSH Q2M PRN Opiate Reversal Ondansetron HCl 4 mg 02/13/25 16:20 02/14/25 08:39 Ondansetron Inj 4 Mg/2 Ml Vial IV PUSH 4 mg Q4H PRN Administration Nausea And Vomiting Oxycodone HCl 5 mg 02/13/25 17:00 02/14/25 08:37 Oxycodone Hcl (*Crx) 5 Mg Tab Ir PO 5 mg Q4H TIMOTHY Administration Oxycodone HCl 5 mg 02/13/25 16:20 Oxycodone Hcl (*Crx) 5 Mg Tab Ir PO Q4H PRN Pain Rated 7-10 Polyethylene Glycol 17 gm 02/14/25 09:00 02/14/25 08:37 Polyethylene Glycol 3350 17 Gm Powd.Pack PO 17 gm QAM TIMOTHY Administration Senna/Docusate Sodium 2 tab 02/13/25 17:00 02/14/25 08:37 Senna/Docusate Sodium Tablet PO 2 tab BID TIMOTHY Administration Vitamin D 50 mcg 02/14/25 09:00 02/14/25 08:36 Cholecalciferol (Vitamin D3) 25 Mcg (1,000 Units) Tablet PO 50 mcg DAILY TIMOTHY Administration Radiology Results: ITS Impressions Knee X-Ray 02/13/25 15:01 IMPRESSION: 1. Recent left total knee arthroplasty. Labs Labs: Laboratory Results - last 24 hr 02/14/25 05:24 WBC 11.4 H RBC 3.33 L Hgb 10.3 L Hct 32.3 L MCV 97.0 MCH 30.9 MCHC 31.9 L RDW 14.3 Plt Count 165 MPV 9.5 Immature Gran % (Auto) 0.4 Neut % (Auto) 86.0 H Lymph % (Auto) 6.2 L [place] % (Auto) 7.1 Eos % (Auto) 0.0 Baso % (Auto) 0.3 Lymph # (Auto) 0.71 L [place] # (Auto) 0.8 H Eos # (Auto) 0.0 Baso # (Auto) 0.0 Abs Immat Gran (auto) 0.04 H Absolute Neuts (auto) 9.8 H Absolute Nucleated RBC 0.000 Nucleated RBC % 0.0 Sodium 136 L Potassium 4.1 Chloride 107 Carbon Dioxide 24 Anion Gap 5 BUN 24 H Creatinine 1.09 H Estim Creat Clear Calc 35 Estimated GFR 49 L Glucose 114 H Calcium 9.3
[2025-02-14] MEDS: APIXABAN 2.5 MG TABLET PO (10:27)
[2025-02-14] MEDS: VANCOMYCIN HCL 1,000 MG in SODIUM CHLORIDE 0.9% IV 250 ML 250 MG IVPB (11:10)
[2025-02-14 12:05] VITALS: BP 121/54; PULSE 66; RESP 16; TEMP 37.1; O2SAT 100
--- NOTE | 2025-02-14 13:12 | P.PNAN_ITS ---
Anes - Prog Note Post-Op Date/Time: 02/14/25 13:12 Cardiovascular status: normal Respiratory status: normal Airway patency: baseline Mental status: baseline Post-Op hydration status: normal Vital Signs: Last Vital Signs Temp 98.8 F 02/14/25 12:05 Pulse 66 02/14/25 12:05 Resp 16 02/14/25 12:05 BP 121/54 L 02/14/25 12:05 Pulse Ox 100 02/14/25 12:05 O2 Del Method Room Air 02/14/25 08:58 O2 Flow Rate 8 02/13/25 15:15 Pain Score (VAS): 0/10 I/O: Intake & Output 02/13/25 02/14/25 02/14/25 23:59 07:59 15:59 Intake Total 800 50 240 Output Total 700 Balance 800 -650 240 Laboratory Tests 02/14/25 05:24 02/14/25 05:24 02/14/25 05:24 WBC 11.4 H RBC 3.33 L Hgb 10.3 L Hct 32.3 L MCV 97.0 MCH 30.9 MCHC 31.9 L RDW 14.3 Plt Count 165 MPV 9.5 Immature Gran % (Auto) 0.4 Neut % (Auto) 86.0 H Lymph % (Auto) 6.2 L [place] % (Auto) 7.1 Eos % (Auto) 0.0 Baso % (Auto) 0.3 Lymph # (Auto) 0.71 L [place] # (Auto) 0.8 H Eos # (Auto) 0.0 Baso # (Auto) 0.0 Abs Immat Gran (auto) 0.04 H Absolute Neuts (auto) 9.8 H Absolute Nucleated RBC 0.000 Nucleated RBC % 0.0 Sodium 136 L Potassium 4.1 Chloride 107 Carbon Dioxide 24 Anion Gap 5 BUN 24 H Creatinine 1.09 H Estim Creat Clear Calc 35 Estimated GFR 49 L Glucose 114 H Calcium 9.3 Post-procedural complaints: none Patient Feedback: Patient satisfied with anesthetic care.
== END 2025-02-14 13:30 | disposition home or self-care (01) ==
LOC: ANHSURGERY 09:17 → ANH3MEDSUR 16:21
PROVIDERS: PCP Nurse Practitioner; Visit Provider Orthopaedic Surgery
PROC: (CPT 27447; principal; 2025-02-13 11:30)
DX: M17.12 Unilateral primary osteoarthritis, left knee (principal); E05.90 Thyrotoxicosis, unspecified without thyrotoxic crisis or storm; R73.03 Prediabetes; I12.9 Hypertensive chronic kidney disease with stage 1 through stage 4 chronic kidney disease, or unspecified chronic kidney disease; N18.30 Chronic kidney disease, stage 3 unspecified
CPT/HCPCS: 27447; 36415; 73560; 80048; 85025; 97110; 97161; 97165; J0690; A9270; C1713; C1776; J0166; J1171; J1885; J2003; J2270; J2405; J2704; J2795; J3010; J3373; J7030; J7050; J7120

== ENCOUNTER 2025-02-19 20:19 | Emergency (ER) | payer MEDICARE, MEDICAID, SELFPAY ==
[2025-02-19 20:27] VITALS: BP 146/38; PULSE 66; RESP 18; TEMP 36.7; O2SAT 99
[2025-02-19 20:53] VITALS: BP 143/75; PULSE 88; RESP 18; TEMP 36.8; O2SAT 97
--- NOTE | 2025-02-19 20:58 | ED.WOUNDLAC ---
HPI - Wound/Laceration General Chief Complaint: Wound/Laceration Stated Complaint: wound opening after total knee Time Seen by Provider: 02/19/25 20:47 Source: patient Mode of arrival: ambulatory Limitations: no limitations History of Present Illness HPI narrative: This is a 79-year-old female that presents emergency department for bleeding from surgical wound. She had a total knee replacement about a week ago. Today was when she was supposed to change her bandage. She noticed a little bit of blood and this scared her and prompted her to be seen. Related Data Home Medications ?Medication ?Instructions ?Recorded ?Confirmed ?Last Taken ?Type ascorbic acid (vitamin C) 1,000 mg 1 g PO DAILY 09/02/20 02/04/25 11/05/24 History tablet Held on 02/14/25. Instructions: Resume on 02/28/25. cholecalciferol (vitamin D3) 50 50 mcg PO DAILY 02/20/23 02/04/25 11/05/24 History mcg (2,000 unit) capsule cyanocobalamin (vitamin B-12) 1,000 mcg PO DAILY 10/22/24 02/04/25 11/05/24 History 1,000 mcg capsule polyethylene glycol 3350 17 gram 17 g PO DAILY 01/30/25 02/04/25 Unknown History oral powder packet (Miralax) Allergies Allergy/AdvReac Type Severity Reaction Status Date / Time ibuprofen Allergy Mild Skin Verified 02/19/25 20:35 Reaction, RASH lisinopril AdvReac Mild cough Verified 02/19/25 20:35 Review of Systems Review of Systems: All systems reviewed & are unremarkable except as noted in HPI and below [facility] Past Medical History Medical History (Updated 02/19/25 @ 20:59 by Nikki Daniels PA-C) BMI 30.0-30.9,adult Mixed hyperlipidemia Cervical radiculopathy Hepatic steatosis Osteopenia after menopause Vitamin D deficiency, unspecified Essential (primary) hypertension Diastolic dysfunction Encounter for Pap cervical smear following prior abnormal smear Chronic kidney disease, stage 3 Arthritis Gastroesophageal reflux disease Prediabetes Surgical History Surgical History (Updated 02/13/25 @ 16:53 by Tri Rm, MARIO) Status post total left knee replacement Status post total right knee replacement History of knee replacement History of section Family History Family History Mother Diabetes mellitus Family history of cardiovascular disease Family history of genetic disorder Family history of coronary artery disease Father Hypertension Sibling No problems noted. Social History Social History Social History: Surrogate medical decision maker: Lucero Maldonado, daughter. Code status: Full code. 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 HEAD: Normocephalic, atraumatic. EYES: EOMI. EXTREMITIES: No edema, erythema or warmth of the left leg. Incision to the left knee has a small area of dried blood, no active bleeding; no surrounding erythema, abnormal drainage. Normal DP pulse SKIN: Warm, dry, no rash. NEURO: No focal deficits. Alert and oriented x3. PSYCH: Normal mood and affect Course Vital Signs Vital signs: Vital Signs Temperature 98.0 F 02/19/25 20:27 Pulse Rate 66 02/19/25 20:27 Respiratory Rate 18 02/19/25 20:27 Blood Pressure 146/38 H 02/19/25 20:27 Pulse Oximetry 99 02/19/25 20:27 Oxygen Delivery Room Air 02/19/25 20:27 Temperature 98.3 F 02/19/25 20:53 Pulse Rate 88 02/19/25 20:53 Respiratory Rate 18 02/19/25 20:53 Blood Pressure 143/75 H 02/19/25 20:53 Pulse Oximetry 97 02/19/25 20:53 Oxygen Delivery Autopap 02/19/25 20:53 MDM - Wound/Laceration MDM Narrative Medical decision making narrative: Patient presents to the emergency department for bleeding from surgical wound. Scant amount of dried blood in the area. There was no active bleeding. No signs of infection. She is afebrile and nontoxic appearing. Instructed to have continued follow-up with her orthopedics doctor. She was given warnings to return to the ER Differential Diagnosis Differential diagnosis: Likely other (wound dehiscence, cellulitis) Critical Care Time Critical Care Time Critical Care Time: No Discharge Plan Discharge Clinical Impression: Bleeding from surgical wound Patient Disposition: Home Condition: Stable Instructions: Acute Wounds (ED) Additional Instructions: Return to the emergency department if you experience fever, redness or swelling of your leg, abnormal drainage from your wound, or any other symptoms that are concerning to you. Follow-up with your orthopedics doctor Patient Language: Mauritanian Prescriptions: No Action cholecalciferol (vitamin D3) 50 mcg (2,000 unit) capsule 50 mcg PO DAILY ascorbic acid (vitamin C) 1,000 mg tablet 1 g PO DAILY polyethylene glycol 3350 [Miralax] 17 gram Powder In Packet 17 g PO DAILY acetaminophen 325 mg tablet 650 mg PO Q6H Qty: 120 0RF sennosides-docusate sodium [Senokot-S] 8.6-50 mg Tablet 2 tab-cap PO BID Qty: 120 0RF oxycodone 5 mg Tablet 5 mg PO Q4H PRN (Reason: Pain Rated 7-10) Qty: 40 0RF celecoxib [Celebrex] 100 mg Capsule 100 mg PO DAILY@0800 Qty: 30 0RF Eliquis 2.5 mg tablet 2.5 mg PO BID Qty: 28 0RF cefdinir 300 mg Capsule 300 mg PO Q12H Qty: 14 0RF cyanocobalamin (vitamin B-12) 1,000 mcg capsule 1,000 mcg PO DAILY losartan 50 mg tablet See Rx Instructions .ROUTE .COMPLEX Qty: 100 1RF Dose Instruction: TAKE 1 TABLET BY MOUTH DAILY Patient Comments: QAM Rx Instructions: TAKE 1 TABLET BY MOUTH DAILY atorvastatin 10 mg tablet See Rx Instructions .ROUTE .COMPLEX Qty: 100 1RF Dose Instruction: TAKE 1 TABLET BY MOUTH DAILY Rx Instructions: TAKE 1 TABLET BY MOUTH DAILY methimazole 5 mg tablet 5 mg PO .COMPLEX Qty: 45 2RF Rx Instructions: 5 mg orally take methimazole 3 days a week on Monday, Monday and Monday's only hydrochlorothiazide 12.5 mg tablet See Rx Instructions .ROUTE .COMPLEX Qty: 50 1RF Dose Instruction: TAKE ONE-HALF TABLET BY MOUTH DAILY Rx Instructions: TAKE ONE-HALF TABLET BY MOUTH DAILY Follow-up/Referrals: Crystal Sena NEPHROLOGY NURSE-C [Primary Care Provider, Internal Medicine] Agusto Low MD [Physician, Orthopedics]
[2025-02-19 21:32] VITALS: BP 129/72; PULSE 91; RESP 18; O2SAT 97
== END 2025-02-19 21:33 | disposition home or self-care (01) ==
LOC: ANHED 21:20
PROVIDERS: Emergency Provider Physician Assistant; PCP Nurse Practitioner
DX: L76.22 Postprocedural hemorrhage of skin and subcutaneous tissue following other procedure (principal); N18.30 Chronic kidney disease, stage 3 unspecified; I12.9 Hypertensive chronic kidney disease with stage 1 through stage 4 chronic kidney disease, or unspecified chronic kidney disease; I11.9 Hypertensive heart disease without heart failure; E78.2 Mixed hyperlipidemia; E55.9 Vitamin D deficiency, unspecified; R73.03 Prediabetes; M85.80 Other specified disorders of bone density and structure, unspecified site; M19.90 Unspecified osteoarthritis, unspecified site; Z96.653 Presence of artificial knee joint, bilateral; Z79.01 Long term (current) use of anticoagulants; Z79.899 Other long term (current) drug therapy
CPT/HCPCS: 99281

== ENCOUNTER 2025-03-14 10:52 | Outpatient (CLI) | payer MEDICARE, MEDICAID, SELFPAY ==
--- NOTE | ~2025-03-14 | MM_ITS ---
EXAMINATION: MM screening eryn BI w susana HISTORY: Screening TECHNIQUE: Craniocaudal and mediolateral oblique 3-D tomosynthesis images were obtained and synthetic 2-D images were generated. CAD analysis was submitted and interpreted. COMPARISON: Comparison to multiple prior studies sequentially, with oldest reviewed study dated 06/26/2017. BREAST PARENCHYMAL COMPOSITION: Not dense: There are scattered areas of fibroglandular density. FINDINGS: There is no evidence of suspicious mass, calcification, or architectural distortion to suggest malignancy in either breast. There has been no suspicious interval change. IMPRESSION: 1. No mammographic evidence of malignancy. 2. Recommend routine screening mammography in one year. BI-RADS Category 1: Negative Reviewed, dictated and finalized at location B.
--- OUTSIDE RECORDS SUMMARY | 2025-03-14 10:58 | XMS_ITS | Clinical Summary ---
Author Organization [facility] Address [address] [place] [address] Care Team Providers Care Management Recruiter Name Role Phone Unavailable Primary Care Provider [...] 1-dose 75+ series) 2022 Influenza Immunization (#1) 02/10/202511/2019, 05/06/2019, 04/23/2018, Additional history exists SARS-COV-2 Immunization () 02/10/2025 Pneumococcal Immunization Combined Discontinued 03/25/2015 Hepatitis B [...]
== END 2025-03-14 10:53 | disposition home or self-care (01) ==
LOC: ANHFOHIMG 10:53
PROVIDERS: PCP Nurse Practitioner; Visit Provider Nurse Practitioner
DX: Z12.31 Encounter for screening mammogram for malignant neoplasm of breast (principal)
CPT/HCPCS: 77063; 77067

== ENCOUNTER 2025-03-27 10:00 | Outpatient (RCR) | payer MEDICARE, MEDICAID, SELFPAY ==
--- NOTE | 2025-02-17 11:06 | OPREHPOC ---
Outpatient Therapy Plan of Care This is a Multidisciplinary Plan of Care that may contain components documented by all disciplines (PT, OT, and ST.) PT Problem 1 PT Problem #1 Knowledge Deficit PT Goal 1 Goal / Goal Update Patient to demonstrate independence with HEP for improved self-reliance of symptom management. Target Visit 6 PT Problem 2 PT Problem #2 Pain PT Goal 1 Goal / Goal Update Patient to decrease subjective reports of pain to <6/10 for 2 consecutive weeks for improved ADL tolerance. Target Visit 12 PT Problem 3 PT Problem #3 Impaired Range of Motion PT Goal 1 Goal / Goal Update Patient to demonstrate an increase of L knee AROM of 0-115 deg to improve mobility required for gait /stair negotiation. Target Visit 12 PT Problem 4 PT Problem #4 Impaired Strength PT Goal 1 Goal / Goal Update Patient to demonstrate L knee strength >=4+/5 for improved functional stability required for ADLs. Target Visit 12 PT Problem 5 PT Problem #5 Impaired Gait PT Goal 1 Goal / Goal Update 1. Patient to improve confidence and understanding of gait mechanics and stair negotiation with SC to improve community navigation. 2. Patient to improve gait mechanics and stair negotiation to mild noted deficit and reciprocal pattern for improved community navigation. Target Visit 12
--- NOTE | 2025-02-17 11:06 | PTOPEVAL1 ---
Assessment and note entered by Donna Hughes, PT Evaluation Information Assessment Status Evaluation ICD-10 Condition Codes (PT) Pain in left knee M25.562,Abnormalities of gait and mobility R26.9,Aftercare following joint replacement surgery Z47.1 Onset 02/13/25 Subjective Information Pt presents s/p L TKA on 02/13/[address] Low. Pt reports no complications with surgery other than nausea from the anesthesia. Pt walked with a SC prior to surgery per PT and MD recommendations. Pt is currently using 2WW. Pt had R TKA on 11/11/24 and completed PT afterwards. She also did prehab for the L knee and SIDNEY hips up until 1 week prior to L TKA. Pt doing stairs one at a time. Pt needs to get back ADLS and IADLS. Pt likes to go to her [employer] sporting events which involves a lot of walking. Pt is currently sleeping in bed and taking pain medication every 4 hours. Pt is having assist with LE dressing/transfers/getting in and out of the car. She has not been doing her chair flexion exercises due to increased pain with bending. She reports it is hard to get in/out of a chair. Reported Pain Level Pain Score 5: Self Report Assessment PT Clinical Summary Pt is a 79 year old female who presents to physical therapy s/p L TKA on 02/13/25. Pt demonstrates weakness, pain, decreased mobility, gait deficit, and decreased flexibility consistent with recent post-op status that limit their ability to perform ADLs. Pt will benefit from skilled physical therapy to address the above listed deficits and return to PLOF. HEP instructed and written handout provided, EX tolerated well with no adverse effects to note post-session. Pt was educated on importance of adherence to HEP. Pt was also educated on anatomy, prognosis, home modalities, and PT POC. Plan of Care Interventions Electrical Stimulation,Gait Training,Hot Pack/Cold Pack,Manual Therapy,Neuro Re-education,Patient/ Caregiver Education,Therapeutic Activities, Therapeutic Exercise,Self-Care/Home Management Other Interventions taping, cupping PT Services Indicated Yes Treatment Frequency and 2x/wk for 12 sessions Duration These treatments will address the objective and functional deficits as defined above. The patient will be advanced safely and appropriately in order for the patient to progress towards his/her prior level of function. Additional exercises will be introduced and as well as a comprehensive home exercise program upon discharge, if needed, ?to ensure carryover of functional gains achieved in the clinic. This treatment plan has been reviewed and agreement upon by the patient.
--- NOTE | 2025-03-27 10:42 | OPREHPOC ---
Outpatient Therapy Plan of Care This is a Multidisciplinary Plan of Care that may contain components documented by all disciplines (PT, OT, and ST.) PT Problem 1 PT Problem #1 Knowledge Deficit PT Goal 1 Goal / Goal Update Patient to demonstrate independence with HEP for improved self-reliance of symptom management. 03-27-25 d/c goal met Target Visit 6 Progress Met PT Problem 2 PT Problem #2 Pain PT Goal 1 Goal / Goal Update Patient to decrease subjective reports of pain to <6/10 for 2 consecutive weeks for improved ADL tolerance. 03-27-25 d/c goal met Target Visit 12 Progress Met PT Problem 3 PT Problem #3 Impaired Range of Motion PT Goal 1 Goal / Goal Update Patient to demonstrate an increase of L knee AROM of 0-115 deg to improve mobility required for gait /stair negotiation. 03-27-25 d/c goal met Target Visit 12 Progress Met PT Problem 4 PT Problem #4 Impaired Strength PT Goal 1 Goal / Goal Update Patient to demonstrate L knee strength >=4+/5 for improved functional stability required for ADLs. 03-27-25 d/c goal met Target Visit 12 Progress Met PT Problem 5 PT Problem #5 Impaired Gait PT Goal 1 Goal / Goal Update 1. Patient to improve confidence and understanding of gait mechanics and stair negotiation with SC to improve community navigation. 2. Patient to improve gait mechanics and stair negotiation to mild noted deficit and reciprocal pattern for improved community navigation. 03-27-25 d/c goal met Target Visit 12 Progress Met
--- NOTE | 2025-03-27 10:42 | PTOPDC ---
Assessment and note entered by Elizabeth Galvez, PT Assessment Status Discharge ICD-10 Condition Codes (PT) Pain in left knee M25.562,Abnormalities of gait and mobility R26.9,Aftercare following joint replacement surgery Z47.1 Onset 02/13/25 Subjective Information doing well; saw and he was pleased and released her; have been doing everything and going out to [place], climbing the bleachers and not having any troubles; have been doing all of the knee exercises; Reported Pain Level Pain Score 0: Self Report Additional Pain Score Comments pain range in the past week 0-1/10, sharp pain in bed, goes away quick; Assessment PT Clinical Summary Sissy has received a total of 12 PT sessions. With today's assessment: pain rating of 0-1/10; LE functional scale self rating of 34% limitation in activity level; active ROM of L knee in sitting 0-125'; gross strength of L LE 4+/5; good gait pattern, without assistive device; on stairs, uses alternate step pattern with 1 UE support and single step pattern without hand railing; education completed for HEP and gait pattern. The goals were achieved. Discharge PT services. She is to continue with her HEP and increase activity as tolerated. Plan of Care PT Services Indicated No
== END 2025-03-27 11:49 | disposition home or self-care (01) ==
LOC: ANHPT 10:00
PROVIDERS: PCP Nurse Practitioner; Visit Provider Orthopaedic Surgery
DX: Z47.1 Aftercare following joint replacement surgery (principal); M17.12 Unilateral primary osteoarthritis, left knee; Z96.652 Presence of left artificial knee joint
CPT/HCPCS: 97014; 97110; 97112; 97116; 97140; 97161; 97530; G0283

== ENCOUNTER 2025-04-07 09:02 | Outpatient (CLI) | payer MEDICARE, MEDICAID, SELFPAY ==
--- NOTE | ~2025-04-07 | DEXA_ITS ---
Bone Density Report Name: SHERLY AGARWAL Age: 79 Sex: Female Ethnicity: White Date of : 1945 Indication: osteopenia; height loss; Referring Provider: J CARLOS AVINA Study: Bone densitometry was performed. Exam Date: April 07, 2025 Accession number: [id number] Bone Density: Region BMD T-score Z-score Classification AP Spine(L1-L4) 0.993 -0.5 2.1 Normal Femoral Neck (Left) 0.597 -2.3 -0.1 Osteopenia Total Hip (Left) 0.737 -1.7 0.3 Osteopenia Femoral Neck (Right) 0.613 -2.1 0.1 Osteopenia Total Hip (Right) 0.755 -1.5 0.4 Osteopenia Total Hip Mean 0.746 -1.6 0.4 Osteopenia World Health Organization criteria for BMD impression classify patients as: Normal (T-score at or above -1.0), Osteopenia (T-score between -1.0 and -2.5), or Osteoporosis (T-score at or below -2.5). 10-year Fracture Risk(1): Major Osteoporotic Fracture 16% Hip Fracture 4.8% Reported Risk Factors: [place] (), Neck BMD=0.597, BMI=29.1 (1) FRAX(R) Version 3.08. Fracture probability calculated for an untreated patient. Fracture probability may be lower if the patient has received treatment. Previous Exams: Region Exam Age BMD T-score BMD Change BMD Change Date g/cm2 vs Baseline vs Previous AP Spine (L1-L4) 04/07/2025 79 0.993 -0.5 -0.076 (-7.1%) -0.076 (-7.1%) 06/26/2017 72 1.069 0.2 Total Hip(Left) 04/07/2025 79 0.737 -1.7 -0.180 (-19.6% -0.157 (-17.5% 09/09/2021 76 0.894 -0.4 -0.023 (-2.5%) -0.023 (-2.5%) 06/26/2017 72 0.917 -0.2 Total Hip(Right) 04/07/2025 79 0.755 -1.5 -0.056 (-6.9%) -0.054 (-6.7%) 09/09/2021 76 0.809 -1.1 -0.002 (-0.2%) -0.002 (-0.2%) 06/26/2017 72 0.811 -1.1 *Denotes significance at 95% confidence level, LSC for AP Spine = 0.022 g/cm2, LSC for Total Hip = 0.027 g/cm2 # Denotes dissimilar scan types or analysis methods Clinical Information Provided by Patient: Has used the following medications: Vitamin D, Calcium Patient maximum height was 62.0 Menopause Age: 56 Does not regularly consume dairy products Drinks caffeinated beverages Onset of menses at age 15 Number of children 6 Impression: The patient has low bone mass, based on the Left Femoral Neck T-score. The patient has an estimated ten-year risk of hip fracture of 4.8% and an estimated ten-year risk of major fracture of 16%, based on the WHO FRAX algorithm. The BMD for the Total Hip(Left) decreased, changing by -17.5% since the last DXA exam. The BMD for the Total Hip(Right) decreased, changing by -6.7% since the last DXA exam. Discussion: BONE DENSITY IS LOW AT ONE OR MORE SKELETAL SITES. THE PATIENT'S BMD AND CLINICAL RISK FACTORS CONTRIBUTE TO THIS PATIENT'S INCREASED RISK OF FRACTURE. This patient's lowest T-score is low at one or more skeletal sites. It meets the World Health Organization's (WHO) criteria for ?low bone mass? (T-score between -1.0 and -2.5). The patient's 10-year risk of hip fracture as calculated by FRAX exceeds the threshold where pharmacological therapy is recommended by the National Osteoporosis Foundation (NOF). However, all treatment decisions require clinical judgment and consideration of individual patient factors, including patient preferences, comorbidities, previous drug use, risk factors not captured in the FRAX model (e.g., frailty, falls, vitamin D deficiency, increased bone turnover, interval significant decline in bone density) and possible under or overestimation of fracture risk by FRAX. The patient should follow a healthful lifestyle (good nutrition with adequate calcium and vitamin D, and appropriate weight-bearing exercise). Follow-Up: Consider a repeat BMD and Vertebral Fracture Assessment (VFA) exam in 2 years or sooner if medically necessary, to reassess this patient's status. Reported by: NAGI on 04/07/2025 9:49:00 AM. Reviewed, dictated and finalized at location A.
--- OUTSIDE RECORDS SUMMARY | 2025-04-07 09:44 | XMS_ITS | Clinical Summary ---
Author Organization [facility] Address [address] [place] [address] Care Team Providers Care Mohs Surgeon/General Dermatologist Name Role Phone Unavailable Primary Care Provider [...]
== END 2025-04-07 09:03 | disposition home or self-care (01) ==
LOC: ANHFOHIMG 09:04
PROVIDERS: PCP Nurse Practitioner; Visit Provider Nurse Practitioner
DX: M85.89 Other specified disorders of bone density and structure, multiple sites (principal)
CPT/HCPCS: 77080